=== PATIENT | male | born 1960 | race Caucasian/White ===

== ENCOUNTER → 2018-05-19 15:40 | Outpatient (CLI) | payer BC, SELFPAY ==
--- NOTE | 2018-05-19 15:40 | RAD_ITS ---
STUDY: X-RAY - RIGHT SHOULDER REASON FOR EXAM: Male, 57 years old. Pain. TECHNIQUE: 4 view(s) of the shoulder. COMPARISON: None. FINDINGS: Normal glenohumeral articulation. There is degenerative arthrosis of the acromioclavicular joint without inferior osseous spur formation. Normal acromion. Normal humeral head and visualized proximal humerus. The soft tissue structures are unremarkable. There is no demonstrated osseous destructive lesion or acute fracture. Normal visualized pulmonary apex. RAD/Shoulder min 2 Views IMPRESSION: Mild to moderate degenerative arthrosis of the right acromioclavicular joint. Electronically Signed: Leonidas Pappas MD at 15:23 EDT , Service support ,
--- NOTE | 2018-05-19 15:40 | RAD_ITS ---
STUDY: X-RAY - CERVICAL SPINE REASON FOR EXAM: Male, 57 years old. Cervicalgia. TECHNIQUE: 2 view(s) of the cervical spine were obtained. COMPARISON: 5 images of the cervical spine August 11, 2013. FINDINGS: There are stable degenerative changes of the anterior atlantoaxial articulation. Normal odontoid process. The patient has undergone anterior fusion C4-C5 with metal hardware. There is an anterior metal plate secured with metal screws in each vertebral level. Radiodense material in the anterior C4-5 disc space may be component of a disc prosthesis. The metal hardware seen previously fusing the C5-6 vertebra has been removed. There is straightening of the normal cervical lordosis. There is stable multi-level endplate spondylosis, most particularly involving the lower cervical spine, with some degree of osseous fusion is suggested across the C5-6 disc space. There or worsened multilevel degenerative changes of the cervical facet articulations, perhaps most severe at C4-5. There is minor anterolisthesis of C6 on C7. The prevertebral soft tissue structures are unremarkable. Surgical clips suggesting prior carotid artery surgery are now present in the soft tissues of the right neck. There is no demonstrated osseous destructive process or acute fracture of the cervical spine. RAD/Cerv Spine 4 or 5 Views IMPRESSION: 1. Multilevel degenerative changes of the cervical spine, progressed since previous exam. 2. Since the 2013 study, the patient has undergone removal of the anterior fixation hardware at C5-6 and placement of anterior fixation hardware at C4-5. 3. Surgical clips are also now seen on the right soft tissues of the neck. Electronically Signed: Leonidas Pappas MD at 15:46 EDT , Service support ,
--- NOTE | 2018-05-19 15:40 | RAD_ITS ---
STUDY: X-RAY - LEFT SHOULDER REASON FOR EXAM: Male, 57 years old. Pain. TECHNIQUE: 4 view(s) of the shoulder. COMPARISON: None. FINDINGS: Normal glenohumeral articulation. Normal acromioclavicular joint. Normal acromion. There is early inferior spurring of the glenoid of the scapula, extending posteriorly. Normal humeral head and visualized proximal humerus. The soft tissue structures are unremarkable. There is no demonstrated osseous destructive lesion or fracture. Normal visualized pulmonary apex. RAD/Shoulder min 2 Views IMPRESSION: Minor degenerative change of the left shoulder, as noted. No acute osseous abnormality. Electronically Signed: Leonidas Pappas MD at 15:22 EDT , Service support ,
== END ==
PROVIDERS: Family Provider Family Medicine; PCP Family Medicine; Referring Provider Orthopaedic Surgery; Visit Provider Orthopaedic Surgery
DX: M54.2 Cervicalgia (principal); M25.511 Pain in right shoulder; M25.512 Pain in left shoulder
CPT/HCPCS: 72050; 73030

== ENCOUNTER → 2019-02-16 15:32 | Outpatient (CLI) | payer BC, SELFPAY ==
[2018-05-19 15:44] VITALS: BMI 28.8
--- NOTE | 2019-02-16 15:34 | RAD_ITS ---
STUDY: X-RAY - LEFT KNEE REASON FOR EXAM: Male, 58 years old. Chronic pain. TECHNIQUE: 4 view(s) of the knee. COMPARISON: None. FINDINGS: There is demineralization of the visualized distal femur. There is demineralization of the tibia and fibula. Normal proximal tibiofibular articulation. There is no demonstrated fracture. There is mild degenerative arthrosis of the medial femorotibial compartment. Normal lateral femorotibial compartment. There is mild degenerative arthrosis of the patellofemoral articulation. There is mild joint effusion. There are mild atherosclerotic calcifications. RAD/Knee 4 or More Views IMPRESSION: Diffuse osteopenia along with mild degenerative disease. Electronically Signed: Lisset Fox MD at 21:27 EST , Service support ,
== END ==
PROVIDERS: Family Provider Family Medicine; PCP Family Medicine; Referring Provider Orthopaedic Surgery; Visit Provider Orthopaedic Surgery
DX: M25.562 Pain in left knee (principal)
CPT/HCPCS: 73564

== ENCOUNTER → 2019-12-30 | Outpatient (CLI) | payer BC, SELFPAY ==
[2019-12-11 07:48] VITALS: BMI 28.8
[2019-12-30 17:56] LABS: Amphetamine Urine VISTA NEGATIVE (<1000 ng/mL); Barbiturate Urine VISTA NEGATIVE (< 200 ng/mL); Benzodiazepine Urine VISTA NEGATIVE (< 200 ng/mL); Cocaine Urine VISTA NEGATIVE (< 300 ng/mL); Ecstacy Urine VISTA NEGATIVE (< 500 ng/mL); Methadone Urine VISTA NEGATIVE (< 300 ng/mL); PCP Urine VISTA NEGATIVE (< 25 ng/mL); THC Urine VISTA NEGATIVE (< 50 ng/mL); Vista UDS pH Range 6
== END | disposition home or self-care (01) ==
LOC: LAB 17:03
PROVIDERS: PCP Family Medicine; Referring Provider Anesthesiology Pain Medicine; Visit Provider Anesthesiology Pain Medicine
DX: F11.20 Opioid dependence, uncomplicated (principal)
CPT/HCPCS: 80307

== ENCOUNTER → 2020-08-09 17:32 | Outpatient (CLI) | payer OTHER, SELFPAY ==
[2019-12-11 07:48] VITALS: BMI 28.8
[2020-08-09 18:03] LABS: Amphetamine Urine VISTA NEGATIVE (<1000 ng/mL); Barbiturate Urine VISTA NEGATIVE (< 200 ng/mL); Benzodiazepine Urine VISTA NEGATIVE (< 200 ng/mL); Cocaine Urine VISTA NEGATIVE (< 300 ng/mL); Ecstacy Urine VISTA NEGATIVE (< 500 ng/mL); Methadone Urine VISTA NEGATIVE (< 300 ng/mL); PCP Urine VISTA NEGATIVE (< 25 ng/mL); THC Urine VISTA NEGATIVE (< 50 ng/mL); Vista UDS pH Range 6
== END ==
PROVIDERS: PCP Family Medicine; Referring Provider Anesthesiology Pain Medicine; Visit Provider Anesthesiology Pain Medicine
DX: F11.20 Opioid dependence, uncomplicated (principal)
CPT/HCPCS: 80307

== ENCOUNTER 2021-03-16 15:52 | Outpatient (CLI) | payer OTHER, SELFPAY ==
--- NOTE | 2021-03-16 16:10 | CT_ITS ---
STUDY: CT LEFT LOWER EXTREMITY WITHOUT CONTRAST REASON FOR EXAM: Left knee osteoarthritis, surgical planning. TECHNIQUE: Transaxial CT imaging of the lower extremity was performed. Coronal and sagittal images were reformatted. Individualized dose optimization techniques were used for this CT. COMPARISON: Radiographs 09/19/2020. FINDINGS: Knee: There is subchondral eburnation and severe joint space narrowing of the medial femorotibial compartment (coronal reconstruction 28). There are very small marginal osteophytes with preservation of joint space of the lateral femorotibial compartment. There are marginal osteophytes and joint space narrowing of the patellofemoral compartment (axial image 308). Normal proximal tibiofibular articulation. There is a joint effusion. The quadriceps tendon is grossly normal. The patellar tendon is grossly normal. Normal Hoffa''s fat pad. There is a popliteal cyst (sagittal reconstruction 18). There is an intra-articular body at the posterior aspect of the medial femorotibial compartment (sagittal reconstruction 25). There is chondrocalcinosis. There is vascular calcification. Hip: There is mild joint space narrowing of the superior medial left hip joint (coronal reconstruction 70). There is a herniation pit in the lateral aspect of the femoral head (coronal reconstruction 64). There is chondrocalcinosis. Ankle: There is chondrocalcinosis of the posterior aspect of the tibiotalar articulation. Normal posterior subtalar, talonavicular and calcaneocuboid articulations. There is a small plantar calcaneal enthesophyte. There is mild fusiform thickening of the Achilles tendon consistent with tendinosis (sagittal reconstruction 16). There are prominent venous varicosities at the medial aspect of the ankle/lower leg. CT/Extremity Lower without Contra IMPRESSION: Left knee osteoarthritis. Electronically Signed: Iron Arteaga MD at 14:59 EST Tel , Service support ,
== END 2021-03-16 23:59 | disposition short-term general hospital (02) ==
LOC: CT 15:54
PROVIDERS: PCP Family Medicine; Referring Provider Orthopaedic Surgery; Visit Provider Orthopaedic Surgery
DX: M17.12 Unilateral primary osteoarthritis, left knee (principal)
CPT/HCPCS: 73700

== ENCOUNTER 2021-03-21 05:34 | Day surgery (SDC) | payer OTHER, SELFPAY ==
--- NOTE | 2021-03-13 08:58 | EKG12_ITS ---
Test Reason : PREOP Blood Pressure : / mmHG Vent. Rate : 078 BPM Atrial Rate : 078 BPM P-R Int : 140 ms QRS Dur : 080 ms QT Int : 346 ms P-R-T Axes : 012 048 077 degrees QTc Int : 394 ms Normal sinus rhythm Normal ECG Confirmed by REYNA ROMAN, WILLIAM ([id number]), state editor QIANA NORMAN ([id number]) on 03/13/2021 2:17:34 PM Referred By: Anurag Jones Confirmed By:WILLIAM ORELLANA MD
[2021-03-13 10:50] LABS: Absolute Lymphocyte Count 1.02 X10^3/uL (0.83-4.51); Absolute Neutrophil Count 2.8 X10^3/uL (2.0-7.7); Basophil# 0.03 X10^3/uL; Basophil% 0.6 % (0-1); Eosinophil# 0.31 X10^3/uL; Eosinophils% 6.4 % (0-5); Hematocrit 44.7 % (40-54); Hemoglobin 14.8 g/dL (13.0-16.5); Lymphocyte # 1.02 X10^3/ul (0.83-4.51); Mean Corp Hgb Conc 33.1 g/dL (32-36); Mean Corpuscular Hgb 29.1 pg (27.0-32.0); Mean Corpuscular Volume 87.8 fL (80-94); Monocyte# 0.63 X10^3/uL; NRBC Flagged by Analyzer 0 % (0-5); Neutrophil # 2.84 X10^3/uL (2.7-7.7); Neutrophil % 58.6 % (47-70); Platelet Count 221 K/mm3 (150-450); RBC Distribution Width CV 13.7 % (11.6-14.6); RBC Distribution Width SD 43.8 fl (35.1-43.9); Red Blood Count 5.09 M/mm3 (4.6-6.2); White Blood Count 4.9 K/mm3 (4.4-11.0)
[2021-03-13 11:12] LABS: Partial Thromboplast Time 33.1 Seconds (24.1-36.2); Prothrombin Time (Protime)PT. 12.8 SECONDS (11.7-14.9)
[2021-03-13 11:18] LABS: Anion Gap 7 (5-15); BUN 20 mg/dL (7-18); BUN/Creat Ratio 19.6 RATIO (10-20); Calcium,Total 9.9 mg/dL (8.5-10.1); Chloride 102 mmol/L (98-107); Creatinine, Serum 1.02 mg/dL (0.70-1.30); EST Glomerular Filtration Rate 79 mL/min (>60); Est Glom Filt Rate - Afr Amer 95 mL/min (>60); Glucose 98 mg/dL (74-106); Potassium 4.9 mmol/L (3.5-5.1); Sodium Level 132 mmol/L (136-145)
[2021-03-13 11:22] LABS: Magnesium 1.6 mg/dL (1.6-2.6)
[2021-03-14 17:57] LABS: Fructosamine 227 umol/L (0-285)
[2021-03-21] VITALS (10 sets, daily range): BP systolic 117–172; BP diastolic 82–101; PULSE 63–82; RESP 16–20; TEMP 36.1–37.1; O2SAT 94–100; BMI 31.1
[2021-03-21] MEDS: Lactated Ringers 1,000 ML 100 ML IV ×2 (06:40→08:30)
[2021-03-21] MEDS: Scopolamine 1mg/72hr Patch 1 PATCH TD (06:43)
[2021-03-21] MEDS: Celecoxib 200 MG Capsule 400 MG PO (06:43)
[2021-03-21] MEDS: Acetaminophen 500 MG Tablet 1000 MG PO ×2 (06:44→13:45)
[2021-03-21] MEDS: Gabapentin 600 MG Tablet PO (06:44)
--- NOTE | 2021-03-21 07:16 | HP.PCM_ITS ---
History and Physical Date of Admission: 03/21/21 [id number]:[id number]: TOYA SOUSA CRep #:[id number]:[id number] Provider:Dr. Anurag Jones DOAge/Sex: 60/M [facility] [place]Signed Intake Vital Signs 11/29/20 08:52 Height 5 ft 8 in Intake Visit Reasons: L knee inj and aspiration Chief Complaint: Dr. Castro referral left knee pain Allergies diphenhydramine [From Benadryl] Allergy (Verified 09/19/20 15:28) hyper Medications atorvastatin 40 mg tablet 40 mg PO DAILY 05/19/18 [History Confirmed 12/07/20] coenzyme Q10 75 mg capsule 75 mg PO DAILY 05/19/18 [History Confirmed 12/07/20] lisinopril 40 mg tablet 40 mg PO DAILY 05/19/18 [History Confirmed 12/07/20] metoprolol tartrate 50 mg tablet 50 mg PO BID 05/19/18 [History Confirmed 12/07/20] omeprazole 40 mg capsule,delayed release 40 mg PO DAILY 05/19/18 [History Confirmed 12/07/20] PFSH Medical History (Updated 09/19/20 @ 16:[address] Anurag Jones DO) Esophageal cancer High cholesterol Hypertension Surgical History (Updated 09/19/20 @ 16:[address] Anurag Jones DO) H/O cervical spine surgery History of carpal tunnel release of both wrists Family History (Updated 05/19/18 @ 15:44 by Lore Lewis) Father Cancer Other Hypertension Social History (Updated 04/04/20 @ 15:[address] Anurag Jones DO) Smoking Status: Former smoker HPI L knee inj and aspiration Details: Parts of this documentation were recorded by a scribe, this documentation accurately reflects the service provided and the decisions made by me, Dr. Anurag Jones DO 12/07/20 1732. TOYA SOUSA is a 60 year old M here today for left knee pain and swelling. he last had a left knee injection and aspiration 11 weeks and 2 days ago. He states that the last injection was effective for about 4-6 weeks then the pain would come and go. He is wishing to have a left TKA in March and he would like this last injection prior to the TKA. Denies any new injuries. ROS [facility] Reports arthralgias, Reports joint swelling, Denies numbness and Denies tingling Skin/Breast Reports system reviewed and no additional complaints, except as documented Neuro Yes system reviewed and no additional complaints, except as documented, No numbness and No tingling Ortho Exam General General: Yes no acute distress Neurologic: Yes alert and Yes oriented x3 Psychologic: Yes reasonable and appropriate Right Knee Patella Translation: 1 Left Knee Skin/Wound: No ecchymosis, No erythema and Yes swelling Homans Sign: No 1+: Effusion Knee ROM: No ROM-Extension -20 to 0 and No ROM-Flexion 0-140 Examination: Yes med jt line tenderness and Yes Lat jt line tenderness Stability: NML: Anterior Drawer and NML: Posterior Drawer Patella Translation: 1 Patella Grind: Yes KNEE: grade 2 joint effusion. Office Procedures Office Injections/Aspirations Procedure Detail Procedure performed by: Anurag Jones Injection Site: Yes Medication Given: Yes Ortho Injections/Aspirations Yes Knee Left Details: Obtained consent for aspiration. Under sterile conditions, aspirated 40cc from the patients []. The patient tolerated the aspiration well without any noted complications. Patient should call our office if redness develops, pain worsens or if they have any concerns. Ortho Injections Injections Yes Knee Left Details: Obtained consent for injection. Under sterile conditions, injected the patient's left knee with 2cc bupivacaine, 2cc lidocaine and 1cc depomedrol. The patient tolerated the injection well without any noted complication. Patient should call our office if redness develops, pain worsens or if they have any concerns. Office Meds Depo-Medrol Performing Provider: Anurag Jones DO Administered by: Anurag Jones DO on 12/07/20 16:06 Dose Route Admin Location Lot Number Expiration Date [facility] [employer] 40 mg intra-articular left knee [id number] 08/09/21 7858-7138-97 [employer] Supplemental Info 09/19/2020 x-ray left knee: Moderate to severe medial joint space narrowing. moderate pf arthrosis 09/19/2020 x-ray right knee s/p unicompartmental knee arthroplasty mild spurring lateral compartment severe PF arthrosis. , 02/16/2019 x-ray left knee moderate medial joint space narrowing and degenerative change seen patellofemoral joint Coding Level of Care Code Off vis,est,level 3 Diagnoses Osteoarthritis of left knee M17.12 CPT Codes product scientist.knee () product scientist.knee () Assessment and Plan Assessment and Plan (1) Osteoarthritis of left knee: Status: Acute Orders: Orders: Ortho Injections Today Ortho Aspiration Today Plan - Dr. Anurag Jones, DO: Patient educated that he does OA of the left knee. Educated that he can have a repeat aspiration and steroid injection if he wishes. He wishes to proceed with aspiration and injection of the left knee at this time. He is scheduled for a left TKA on 03/21/21. Educated that this will be his last steroid injection prior to surgery unless he wishes to push his surgery out. Our office will call the patient closer to his surgery with additional information. Follow up within 30 days of surgery or sooner if pain, swelling, numbness or associated symptoms, or concerns develop. All questions answered. Patient in agreement of plan. 12/07/20 1611<Electronically signed by Anurag Jones DO>Date Anurag Jones DO I have re-examined the patient. There are no clinical changes since date of exam
--- NOTE | 2021-03-21 07:45 | KNEE_PTH ---
PATIENT: TOYA SOUSA LOC: [facility] [place] U#:[id number] AGE/SX: 60/M ROOM: RE03/21/[address]: Dr. Anurag Jones DO : 1960 BED: DIS: 03/21/2021 SPEC #: [id number] RECD: 03/21/21 12:48 STATUS: FLAVIO MUNA #: [id number] MIMI: 03/21/21 07:[address]: Anurag Jones DEPT: SURGICAL PATHOLOGY RECD BY: Brenna Lofton ENTERED: 03/21/21 13:04 SP TYPE: TOTAL KNEE OTHR DR: Dr. Sourav Castro MD Tissues: Knee, NOS Procedures: Decalcification bone/plaque Surgery Specimen Level IV HEADER OPERATION: ERAS, total knee replacement robotic arm assist PRE-OP DIAGNOSIS: Acute osteoarthritis of left knee TISSUE SUBMITTED: Bone and soft tissue of left knee MICROSCOPIC DIAGNOSIS Bone and soft tissue, left knee, total knee replacement/resection: Pieces of bone with degenerative osteoarthritic changes. WILLY:kamaljit 03/24/2021 MICROSCOPIC DESCRIPTION Slides are reviewed. GROSS DESCRIPTION Received is one container designated bone and soft tissue left knee. The specimen consists of multiple fragments of noonan-yellow bone measuring in aggregate 10 x 10 x 3 cm. No soft tissue is identified. A number of bony fragments contain articular surfaces consistent with tibial plateau and femoral condyle and displaying prominent osteophyte formation, eburnation, and bone erosion. Tour Consultant sections are submitted in one cassette after decalcification. / WILLY:kamaljit 03/21/2021 TC:5 CPT: 26418, 35337
[2021-03-21] MEDS: dexAMETHasone 10 MG/ML Vial IV (08:10)
[2021-03-21] MEDS: Bupivacaine Mpf 0.5% 30 ML VIAL (09:25)
[2021-03-21] MEDS: Epinephrine (1 mg/ml) 1 MG/ML VIAL (09:25)
[2021-03-21] MEDS: Betamethasone/Betamethasone 30 MG/5 ML Vial (09:25)
--- NOTE | 2021-03-21 09:59 | PCM.OPRPT ---
Report of Operation Date of Procedure: 03/21/21 Description of Surgical Findings:: Preoperative diagnosis: Left knee DJD Postoperative diagnosis: Same Procedure: Left total knee arthroplasty CT guided Robotic Assisted Implant: Kim triathlon press fit, femoral component size 4, tibial baseplate size 5, asymmetric patella size 32, polyethylene X3 size 9 CS Anesthesia: General with adductor canal block Tourniquet time: 17 minutes at 300 mmHg Complications: None Condition: Stable to PACU Estimated blood loss: 125 cc Indication for procedure: This is a 60-year-old male with long standing degenerative joint disease of the knee who has failed conservative treatment and wished to proceed with elective total knee arthroplasty. Risk benefits and alternatives were reviewed including; risk of bleeding, infection, nerve artery and tissue damage, continued pain, postoperative stiffness, venous thromboembolism, need for postoperative rehabilitation, mechanical feel to the knee, and expected postoperative course. The pre- operative CT and templating was performed with component sizing. Procedure: The patient was met in the preoperative holding area. The operative extremity was identified by both patient and physician and was marked. Patient was met by anesthesia. An adductor canal block was placed by anesthesia postoperatively the patient was brought back to the operating room on a wheeled cart and transferred to the operating table in the supine position. Anesthesia was started. A well-padded tourniquet was placed on the operative extremity. The patient was prepped and draped in the usual sterile fashion. A timeout was called to ensure the proper patient procedure and extremity were being contemplated. An esmarch was used to exsanguinate the extremity. The tourniquet was inflated. A 10 blade scalpel was used to make a midline incision down through the skin and subcutaneous tissue. Skin retractors placed. Bovie and Aquamantis were used to perform meticulous hemostasis. full-thickness flaps were elevated medial and lateral along the joint capsule. A deep blade scalpel was used to perform a medial parapatellar arthrotomy. The knee was brought to full extension. A bovie was used to release the soft tissues off the most proximal aspect of the medial tibial plateau, a three-quarter inch curved osteotome was also used in this process. The infrapatellar fat pad was excised. The suprapatellar fat pad was excised partially anteriorolateraly and portion the anterioromedial pad was elevated from the femur. At this point our intra-articular femoral array was placed at a 45 degree angle proximal and posterior to the medial epicondyle. femoral checkpoint was placed at this time. Our tibial array was placed greater than 1 hands breath below the incision at a 20 degree angle stab incisions were made with a 15 blade scalpel and pins were placed and attached to the tibial array , tibial checkpoint was placed in the proximal tibial metaphysis. Tourniquet was let down. At this point registration sierra were taken throughout the knee . Once the knee was registered we then tensioned the medial and lateral ligaments in extension and 90 degrees of flexion. We then used these numbers to adjust our components within parameters to balance the knee in both flexion and extension once this was done on our monitor we then proceeded with using the robotic arm to make our tibial plateau cut, anterior and posterior chamfer and distal femur cuts. we removed the cut fragments with the use of a bovie and morris, we did use a lamina environmental professional to insure we visualized and removed all posterior osteophytes and at this time also used the Aquamantis on the posterior joint capsule. we then trialed and achieved the desired plan with a well-balanced knee. we used the green prob to moises the corresponding tibial rotation based on our CT template. Lug holes were drilled in the femur the tibia preparation was completed with the appropriate sized base plate pinned based on previous rotation moises. An appropriate sized fin punch was used on the tibia and 4 corner drill was used for the press fit component and the patella was prepared by first using a caliper to ensure sufficient bone stock and a patellar reamer to remove the desired amount of bone. lug holes drilled for an asymmetric poly. We then brought the knee through range of motion with excellent patellar tracking. We thoroughly irrigated the knee. Trial components were removed a posterior capsular injection was preformed with our standard cocktail. In addition the aqua Mantis was also used to aid in hemostasis. Betadine rinse was allowed to sit and washed out completely. Components were press-fit into place. Aricept rinse was then used followed by several more liters of irrigation after it was allowed to sit. The joint capsule was closed with #1 Ethibond [id number] followed by Vicryl in the subcutaneous tissues with ricarda in the skin. Arrays and checkpoints were removed prior to closure all counts were correct stab incisions were closed with a staple standard dressing in the form of Mepilex AG for the main incision and a small Mepilex over the pin holes. Thigh-high LAVERNE hose applied over top of dressing. Patient tolerated the procedure well and was directed to PACU in stable condition . There were no intraoperative complications.
--- NOTE | 2021-03-21 10:03 | OP.PCM_ITS ---
Report of Operation Surgery/Procedure Performed:: Preoperative diagnosis: [Left] knee DJD Postoperative diagnosis: [Same] Procedure: [Left] total knee arthroplasty CT guided Robotic Assisted Implant: [place] triathlon [press fit], femoral component size[ 4], tibial baseplate size [4], [asymmetric] patella size [32], polyethylene X3 size [9] [CS] Anesthesia: [spinal] with adductor canal block Tourniquet time: [12] [minutes at 300 mmHg] Complications: None Condition: Stable to PACU Estimated blood loss: [200] cc Indication for procedure: This is a [70-year-old female] with long standing degenerative joint disease of the knee who has failed conservative treatment and wished to proceed with elective total knee arthroplasty. Risk benefits and alternatives were reviewed including; risk of bleeding, infection, nerve artery and tissue damage, continued pain, postoperative stiffness, venous thromboembolism, need for postoperative rehabilitation, mechanical feel to the knee, and expected postoperative course. The pre- operative CT and templating was performed with component sizing. Procedure: The patient was met in the preoperative holding area. The operative extremity was identified by both patient and physician and was marked. Patient was met by anesthesia. An adductor canal block was placed by anesthesia [postoperatively] the patient was brought back to the operating room on a wheeled cart and transferred to the operating table in the supine position. Anesthesia was started. A well-padded tourniquet was placed on the operative extremity. The patient was prepped and draped in the usual sterile fashion. A timeout was called to ensure the proper patient procedure and extremity were being contemplated. An esmarch was used to exsanguinate the extremity. The tourniquet was inflated. A 10 blade scalpel was used to make a midline incision down through the skin and subcutaneous tissue. Skin retractors placed. Bovie and Aquamantis were used to perform meticulous hemostasis. full-thickness flaps were elevated medial and lateral along the joint capsule. A deep blade scalpel was used to perform a medial parapatellar arthrotomy. The knee was brought to full extension. A bovie was used to release the soft tissues off the most proximal aspect of the medial tibial plateau, a three-quarter inch curved osteotome was also used in this process. The infrapatellar fat pad was excised. [The suprapatellar fat pad was excised partially anteriorolateraly and portion the anterioromedial pad was elevated from the femur]. At this point our intra- articular femoral array was placed at a 45 degree angle proximal and posterior to the medial epicondyle. femoral checkpoint was placed at this time. Our tibial array was placed greater than 1 hands breath below the incision at a 20 degree angle stab incisions were made with a 15 blade scalpel and pins were placed and attached to the tibial array , tibial checkpoint was placed in the proximal tibial metaphysis. Tourniquet was let down. At this point registration sierra were taken throughout the knee . Once the knee was registered we then tensioned the medial and lateral ligaments in extension and 90 degrees of flexion. We then used these numbers to adjust our components within parameters to balance the knee in both flexion and extension once this was done on our monitor we then proceeded with using the robotic arm to make our tibial plateau cut, anterior and posterior chamfer and distal femur cuts. we removed the cut fragments with the use of a bovie and Taylor, we did use a lamina bilingual inside sales representative to insure we visualized and removed all posterior osteophytes and at this time also used the Aquamantis on the posterior joint capsule. we then trialed and achieved the desired plan with a well-balanced knee. we used the green prob to moises the corresponding tibial rotation based on our CT template. Lug holes were drilled in the femur the tibia preparation was completed with the appropriate sized base plate pinned based on previous rotation moises. An approprate sized fin punch was used on the tibia [and 4 corner drill was used for the press fit component] and the patella was prepared by first using a caliper to ensure sufficient bone stock and a patellar reamer to remove the desired amount of bone. lug holes drilled for an [asymmetric poly]. We then brought the knee through range of motion with excellent patellar tracking. We thoroughly irrigated the knee. Trial components were removed a posterior capsular injection was perfomed with our standard cocktail. In addition the aqua Mantis was also used to aid in hemostasis. Betadine rinse was allowed to sit and washed out completely. Components were [press-fit into place]. Aricept rinse was then used followed by several moree liters of irrigation after it was allowed to sit. The joint capsule was closed with #1 Ethibond [id number] followed by Vicryl in the subcutaneous tissues [with ricarda in the skin]. Arrays and checkpoints were removed prior to closure all counts were correct stab incisions were closed with a staple standard dressing in the form of Mepilex AG for the main incision and a small meplix over the pin holes. Thigh-high LAVERNE hose applied over top of dressing. Patient tolerated the procedure well and was directed to PACU in stable condition . [there were no intraoperative complications].
[2021-03-21 10:05] LABS: Bedside Glucose 91 mg/dL (70-110)
--- NOTE | 2021-03-21 10:07 | EX.PCM.DISCH ---
Discharge Instructions Diet Discharge Diet: No restrictions Activity Weight Bearing Status: Weight bearing as tolerated Keep extremity elevated above heart level: Operative Extremity Dressing / Incision Additional Dressing/Incision Instructions:: Ice and elevate one week while not ambulating. Ambulation is encouraged. Weightbearing as tolerated. Use assistive devise for stability. Encourage FULL knee extension and flexion 1 time EVERY time you get up and down and MULTIPLE times per day. No showering 72 hours after surgery. Begin showering postop day #3. Remove the dressing prior to shower and gently wash with warm water and antibacterial soap then pat dry and place abdominal pad (or plain gauze) and LAVERNE hose over top. This is to be done daily. Do not submerge for 3 weeks. If not showering daily after the initial 72 hours then you must clean incision and change dressing daily. Do not allow animals near the incision area. Keep clean. Follow anticoagulation recommendations as prescribed. Do not take any NSAIDs while on blood thinner. Do not take any additional narcotic pain medication other than what was prescribed on your surgery day without discussing with physician. Narcotic medication can be addictive. Do not drink alcohol while taking narcotics. Start physical therapy. If you are not currently scheduled for physical therapy or you are unsure of appointment time please call office [facility] to arrange. Call Dr. Jones with any concerns. Follow Up Care Please Follow Up With: Anurag Jones DO When: 2 weeks Test Results: Test results from this visit will be discussed in further detail at your follow-up appointment, if applicable. Discharge Plan Admission Attending Provider: Anurag Jones Primary Care Provider: Sourav Castro Discharge Orders/Prescriptions Prescriptions: New acetaminophen [acetaminophen] 500 MG tablet 1,000 mg PO Q6H PRN Qty: 100 RF: 0 cephalexin [cephalexin] 500 MG capsule 1,000 mg PO Q8 Qty: 4 RF: 0 Eliquis 2.5 mg tablet 2.5 mg PO BID Qty: 28 RF: 0 oxycodone 5 mg tablet 5 mg PO Q4H PRN (Reason: pain) 7 Days Qty: 60 RF: 0 Continued lisinopril 40 mg tablet 40 mg PO DAILY RF: 0 atorvastatin [Lipitor] 40 mg tablet 40 mg PO DAILY RF: 0 metoprolol tartrate 50 mg tablet 50 mg PO DAILY RF: 0 Ultra CoQ10 75 mg capsule 200 mg PO BID RF: 0 omeprazole 40 mg capsule,delayed release(DR/EC) 20 mg PO DAILY RF: 0 cyclobenzaprine 10 mg tablet 10 mg PO BID RF: 0 sennosides-docusate sodium [Vegetable Lax-Stool Softener] 8.6-50 mg Tablet 4 tab-cap PO QHS RF: 0 testosterone cypionate 200 mg/mL oil 100 mg subcut .QOWEEK RF: 0 budesonide-formoterol [Symbicort] 160-4.5 mcg/actuation HFA aerosol inhaler 2 puff INHALATION PRN PRN (Reason: ASTHMA) RF: 0 Held aspirin 81 mg Capsule 81 mg PO DAILY RF: 0 Hold Instructions: Resume on 03/22/21. Discontinued naproxen 250 mg Tablet 220 mg PO BID RF: 0 Referrals / Follow Up: Sourav Castro MD [Primary Care Provider] - Disposition Disposition (needs filled in before D/C Order can be placed): Home, Self Care
--- NOTE | 2021-03-21 10:25 | RAD_ITS ---
STUDY: X-RAY - LEFT KNEE REASON FOR EXAM: Postoperative evaluation of left total knee arthroplasty. TECHNIQUE: 2 view(s) of the knee. COMPARISON: Radiographs 09/19/2020. FINDINGS: There is a left total knee arthroplasty without evidence of complication. There is postoperative gas in the soft tissues and overlying skin ricarda. There is vascular calcification. RAD/Knee 1 or 2 Views IMPRESSION: Uncomplicated left total knee arthroplasty. Electronically Signed: Iron Arteaga MD at 12:18 EST Tel , Service support ,
[2021-03-21] MEDS: Cefazolin 1 GM/50 ML BAG IV (11:28)
[2021-03-21] MEDS: oxyCODONE 5 MG Tablet PO (12:10)
== END 2021-03-21 23:59 | disposition home or self-care (01) ==
LOC: SDC 05:35 → AC 05:36
PROVIDERS: Anesthesiology; PCP Family Medicine; Referring Provider Orthopaedic Surgery; Visit Provider Orthopaedic Surgery
PROC: 0SRD0JZ Replacement of Left Knee Joint with Synthetic Substitute, Open Approach (ICD-10-PCS; CPT 27447; principal; 2021-03-21 07:15)
DX: M17.12 Unilateral primary osteoarthritis, left knee (principal); J44.9 Chronic obstructive pulmonary disease, unspecified; E78.00 Pure hypercholesterolemia, unspecified; I10 Essential (primary) hypertension; K21.9 Gastro-esophageal reflux disease without esophagitis; G89.18 Other acute postprocedural pain; G62.9 Polyneuropathy, unspecified; Z79.01 Long term (current) use of anticoagulants; Z79.82 Long term (current) use of aspirin; Z79.899 Other long term (current) drug therapy; Z87.891 Personal history of nicotine dependence
CPT/HCPCS: 27447; 64447; S2900; 01402; 36415; 73560; 73562; 80048; 82962; 82985; 83735; 85025; 85610; 85730; 86850; 86900; 86901; 87081; 88305; 88311; 93005; 93971; 97162; 99282; C1776; J7120; J0702; J2405

== ENCOUNTER 2021-03-21 19:33 | Emergency (ER) | payer OTHER, SELFPAY ==
[2021-03-21 19:33] VITALS: PULSE 99; RESP 18; TEMP 35.9; O2SAT 92; BMI 31.3
[2021-03-21 19:36] VITALS: BP 146/70
--- NOTE | 2021-03-21 21:06 | RAD_ITS ---
STUDY: X-RAY - LEFT KNEE REASON FOR EXAM: Male, 60 years old. pain PT HAD TOTAL KNEE REPLACEMENT WITH DR GILLIS THIS AM SWELLING TO LEFT KNEE AND LEFT FOOT N/T TO LEFT FOOT TECHNIQUE: 3 view(s) of the knee. COMPARISON: Left knee x-ray dated September 19, 2020 FINDINGS: Newly placed tricompartmental hardware is present demonstrating good bony contact and alignment. The tibial stem is noncemented. Tract sierra are seen in the undersurface of the patella due to placement of a radiolucent prosthetic component. There are expected postoperative changes in the soft tissues and joint including gas, fluid, and swelling. Multiple overlying skin ricarda are present. No occult fracture is present. RAD/Knee 3 Views IMPRESSION: Status post left knee arthroplasty Electronically Signed: Dk Barahona MD at 22:53 EST , Service support ,
--- NOTE | 2021-03-21 21:08 | US_ITS ---
STUDY: VENOUS DOPPLER ULTRASOUND - LEFT LOWER EXTREMITY REASON FOR EXAM: Male, 60 years old. LT LOWER LEG SWELLING left knee replacement TECHNIQUE: Ultrasound evaluation of the deep vein system to include reeder-scale imaging and compression was performed. Reeder-scale imaging and Doppler sonographic evaluation, including duplex spectral analysis and qualitative color flow sonography, was performed. COMPARISON: None. FINDINGS: Common Femoral Vein: Normal compression, spontaneity and augmentation. Normal color Doppler. Common Femoral Vein/Greater Saphenous Junction: Normal compression, spontaneity and augmentation. Normal color Doppler. Deep Femoral Vein: Normal compression, spontaneity and augmentation. Normal color Doppler. Femoral Proximal: Normal compression, spontaneity and augmentation. Normal color Doppler. Femoral Middle: Normal compression, spontaneity and augmentation. Normal color Doppler. Femoral Distal: Normal compression, spontaneity and augmentation. Normal color Doppler. Popliteal Vein: Normal compression, spontaneity and augmentation. Normal color Doppler. Posterior Tibial Vein: Normal compression, spontaneity and augmentation. Normal color Doppler. Peroneal Vein: Normal compression, spontaneity and augmentation. Normal color Doppler. Small left knee Zavala''s cyst noted. Multiple varicose veins are seen around the ankle. The right common femoral vein was evaluated and is normal. US/Venous Duplex Imag/Limited/Uni IMPRESSION: 1. Normal venous Doppler ultrasound of the left lower extremity. Electronically Signed: Dk Barahona MD at 22:49 EST , Service support ,
--- NOTE | 2021-03-21 21:09 | EDS_ITS ---
HPI History of Present Illness Chief Complaint: Lower Extremity Injury Detail of Chief Complaint: Left knee pain and decreased ability to move left foot Informant: patient Narrative Narrative: Patient postop total knee replacement on the left this morning by . Patient did well and was moving everything and walking. He was discharged home and when he tried to get into the car he bent his knee and had sudden onset of severe pain. Patient then unable to move his foot and he describes loss of sensation to the foot. Patient's had some chronic loss of sensation from about left mid thigh to mid calf for the last several weeks. Patient was advised to come to the emergency department by his orthopedic surgeon. Patient denies chest pain or shortness of breath. [facility] Medical History (Updated 03/21/21 @ 22:[address] Marsha Dickens, ) Alcohol use Arthritis Asthma COPD (chronic obstructive pulmonary disease) CPAP (continuous positive airway pressure) dependence Esophageal cancer Former smoker Gastric reflux High cholesterol High cholesterol History of echocardiogram History of irregular heartbeat History of steroid therapy History of stress test Hx of esophageal varices Hypertension Injury of back Injury of head and neck Leg cramps Sleep apnea Wears glasses Wears partial dentures Home Medications atorvastatin 40 mg tablet 40 mg PO DAILY 05/19/18 [History Last Taken 03/20/21] coenzyme Q10 75 mg capsule 200 mg PO BID 05/19/18 [History Last Taken 03/20/21] lisinopril 40 mg tablet 40 mg PO DAILY 05/19/18 [History Last Taken 03/21/21 04:00] metoprolol tartrate 50 mg tablet 50 mg PO DAILY 05/19/18 [History Last Taken 03/21/21 04:00] omeprazole 40 mg capsule,delayed release 20 mg PO DAILY 05/19/18 [History Last Taken 03/21/21 04:00] aspirin 81 mg PO DAILY 03/07/21 [History Last Taken 03/15/21] budesonide-formoterol [Symbicort] 2 puff INHALATION PRN PRN 03/07/21 [History Last Taken 03/20/21] cyclobenzaprine 10 mg PO BID 03/07/21 [History Last Taken 03/20/21] sennosides-docusate sodium [Vegetable Lax-Stool Softener] 4 tab-cap PO QHS 03/07/21 [History Last Taken 03/20/21] testosterone cypionate 100 mg SUBCUT .QOWEEK 03/07/21 [History Last Taken 03/20/21] acetaminophen 1,000 mg PO Q6H PRN #100 tab 03/21/21 [Rx Last Taken Unknown] apixaban [Eliquis] 2.5 mg PO BID #28 tab 03/21/21 [Rx Last Taken Unknown] cephalexin 1,000 mg PO Q8 #4 cap 03/21/21 [Rx Last Taken Unknown] oxycodone 5 mg PO Q4H PRN 7 Days #60 tab 03/21/21 [Rx Last Taken Unknown] Allergy/AdvReac Type Severity Reaction Status Date / Time diphenhydramine Allergy hyper Verified 03/21/21 19:36 [From Lita] Family History (Updated 05/19/18 @ 15:44 by Lore Lewis) Father Cancer Other Hypertension Surgical History (Updated 03/07/21 @ 09:29 by Bernadine Velazquez) H/O cervical spine surgery History of carpal tunnel release of both wrists Hx of elbow surgery Hx of foot surgery Hx of right knee surgery Hx of shoulder surgery Hx of tooth extraction Social History (Updated 04/04/20 @ 15:[address] Anurag Jones, DO) Smoking Status: Former smoker ROS ROS ED Constitutional Constitutional ED: Reports systems reviewed and no addt'l complaints, except as documented; Denies body ache(s), change in weight or chills Eyes Eyes: Denies acute decrease in peripheral vision, change in vision, double vision or loss of vision ENT ENT ED: Reports none; Denies ear pain, lip swelling, loss taste/smell, neck pain, otalgia or sore throat Cardiovascular Cardiovascular: Reports none; Denies abdominal pain, chest pain with activity, leg edema, lightheadedness, palpitations, rapid heart rate or syncope Respiratory/Chest Respiratory/Chest: Reports none; Denies change in mental status, dry cough, dyspnea, hemoptysis, shortness of breath at rest or shortness of breath with exertion Gastrointestinal Gastrointestinal: Reports none; Denies abdominal pain, change in stool character, diarrhea, hematemesis, hematochezia, melena, rectal bleeding or vomiting Genitourinary Genitourinary ED: Reports none; Denies abdominal discomfort, anuria, dysuria, genital pain or polyuria Musculoskeletal Musculoskeletal: Reports none and other Details: Left knee pain and swelling. Left foot decreased movement and sensation ; Denies arthralgias, back pain, difficulty walking, extremity pain, muscle weakness or myalgias Integumentary Reports none; Denies abscess or rash Neurologic Neurologic: Reports none; Denies abnormal gait, confusion, focal weakness, frequent falls, headache(s), loss of vision, numbness, paresthesias, radicular pain, vertigo or weakness Psychiatric Psychiatric: Reports systems reviewed and no addt'l complaints, except as documented and none; Denies behavioral changes, confusion, difficulty concentrating, hallucinations, suicidal ideation, tactile hallucinations or visual hallucinations Endocrine Endocrinology: Denies none, cold intolerance, excessive sweating, fatigue or heat intolerance Hematologic/Lymphatic Hematologic/Lymphatic: Reports none; Denies anemia, easy bleeding or easy bruising Allergic/Immunologic Allergic/Immunologic ED: Denies as per HPI, none, lip swelling, mouth swelling, throat swelling, tongue swelling or hives EXAM Physical Exam Const Vital Signs: 03/21/21 19:33 03/21/21 19:36 03/21/21 22:06 Temperature 96.7 F L Temperature Source Temporal Pulse Rate 99 74 Respiratory Rate 18 17 Blood Pressure 146/70 H 118/65 Blood Pressure Mean 95 82 Pulse Ox 92 Oxygen Delivery Method Room Air Positive well nourished and well developed General Appearance ED: well developed and NAD HEENT Reports TM's clear and moist mucous membranes normocephalic and atraumatic; Negative for trauma or tenderness Tympanic Membrane ED: Yes TM's clear Eyes PERRL and EOMs intact bilaterally General Eye ED: Negative for pale conjunctiva or scleral icterus Neck no lymphadenopathy, supple and no JVD General: Negative for tenderness Chest Wall inspection of chest normal and palpation of chest normal Chest: Negative for tenderness Resp normal respiratory effort and clear to auscultation bilaterally Effort and Inspection: Negative for respiratory distress or pain with movement Auscultation: Negative for rhonchi, wheezes or diminished lung sounds Cardio regular rate, regular rhythm, S1 normal heart sound, S2 normal heart sound and no murmurs Peripheral Pulses: pulses 2+ throughout GI normal to inspection, nondistended, normoactive bowel sounds, soft to palpation, non-tender, non-distended and no masses Back/Spine no CVA tenderness and no thoracic nor lumbar tenderness Extremity Extremity Narrative: Evaluation of the left knee reveals that there is not significant swelling about the knee. Compartments are soft in the calf and thigh. Patient has decreased ability to dorsi flex the foot with decreased sensation diffusely about the foot. General Extremety ED: Negative for edema General Extremity: Negative for edema Neuro oriented x3, CN's II-XII intact bilaterally, no sensory deficits noted and gait normal Sensorium / Orientation: awake, alert, oriented to person, oriented to place and oriented to time Motor Exam: strength 5/5 throughout and strength abnormal Psych mental status grossly normal Skin no rashes or lesions noted and no wounds MDM MDM MDM Narrative Medical decision making narrative: Patient had a venous Doppler that was negative for DVT. Patient also had x-rays of the left knee which did not show any periprosthetic fractures on my interpretation however official report from radiology pending. I discussed case with patient's orthopedic surgeon who asked that I have patient follow-up with him as regularly scheduled. Patient states that his movement of his toes is improved compared to earlier. At this point etiology of his neuropathy is unclear although may be compressive from swelling. There is no evidence of compartment syndrome clinically. Lab Data Attestation: I reviewed the patient's lab results. Discharge Plan Triage Chief Complaint: Lower Extremity Injury ED Provider: Marsha Dickens Dx/Rx/DC Orders Clinical Impression: Post-op pain, Neuropathy Instructions: ED Neuropathy, Peripheral, ED Post Op Wound Check, Pain Prescriptions: No Action lisinopril 40 mg tablet 40 mg PO DAILY RF: 0 atorvastatin [Lipitor] 40 mg tablet 40 mg PO DAILY RF: 0 metoprolol tartrate 50 mg tablet 50 mg PO DAILY RF: 0 Ultra CoQ10 75 mg capsule 200 mg PO BID RF: 0 omeprazole 40 mg capsule,delayed release(DR/EC) 20 mg PO DAILY RF: 0 cyclobenzaprine 10 mg tablet 10 mg PO BID RF: 0 sennosides-docusate sodium [Vegetable Lax-Stool Softener] 8.6-50 mg Tablet 4 tab-cap PO QHS RF: 0 testosterone cypionate 200 mg/mL oil 100 mg subcut .QOWEEK RF: 0 budesonide-formoterol [Symbicort] 160-4.5 mcg/actuation HFA aerosol inhaler 2 puff INHALATION PRN PRN (Reason: ASTHMA) RF: 0 aspirin 81 mg Capsule 81 mg PO DAILY RF: 0 Hold Instructions: Resume on 03/22/21. acetaminophen [acetaminophen] 500 MG tablet 1,000 mg PO Q6H PRN Qty: 100 RF: 0 cephalexin [cephalexin] 500 MG capsule 1,000 mg PO Q8 Qty: 4 RF: 0 Eliquis 2.5 mg tablet 2.5 mg PO BID Qty: 28 RF: 0 oxycodone 5 mg tablet 5 mg PO Q4H PRN (Reason: pain) 7 Days Qty: 60 RF: 0 Primary Care Provider: Sourav Castro Referrals: Anurag Jones DO [STAFF PHYSICIAN] - Keep Haja appointment Sourav Castro MD [Primary Care Provider] - Disposition Disposition: Home, Self Care
[2021-03-21 22:06] VITALS: BP 118/65; PULSE 74; RESP 17
== END 2021-03-21 22:38 | disposition home or self-care (01) ==
PROVIDERS: Emergency Provider Emergency Medicine; PCP Family Medicine; Visit Provider Emergency Medicine
DX: M25.562 Pain in left knee (principal); J44.9 Chronic obstructive pulmonary disease, unspecified; G89.18 Other acute postprocedural pain; G62.9 Polyneuropathy, unspecified; I10 Essential (primary) hypertension; K21.9 Gastro-esophageal reflux disease without esophagitis; E78.00 Pure hypercholesterolemia, unspecified; Z79.01 Long term (current) use of anticoagulants; Z79.899 Other long term (current) drug therapy; Z96.652 Presence of left artificial knee joint; Z87.891 Personal history of nicotine dependence
CPT/HCPCS: 73562; 93971; 99282

== ENCOUNTER 2021-05-02 05:39 | Day surgery (SDC) | payer OTHER, SELFPAY ==
[2021-05-02] VITALS (9 sets, daily range): BP systolic 104–125; BP diastolic 57–77; PULSE 81–88; RESP 18; TEMP 36.3–36.8; O2SAT 97–100; BMI 31.9
[2021-05-02] MEDS: Lactated Ringers 1,000 ML 15 ML IV (06:37)
--- NOTE | 2021-05-02 07:11 | PCM.HP.BLA ---
History and Physical Date of Admission: 05/02/21 Date of Service: 05/01/21 MR#:[id number]: TOYA SOUSA CRe #:[id number] Provider:Dr. Anurag Jones, DOAge/Sex: 60/M [facility]:Signed Intake Intake Visit Reasons: Lt knee Is patient in pain?: Yes Allergies diphenhydramine [From Benadryl] Allergy (Verified 05/01/21 09:12) hyper Medications atorvastatin 40 mg tablet 40 mg PO DAILY 05/19/18 [History Confirmed 05/01/21] coenzyme Q10 75 mg capsule 200 mg PO BID 05/19/18 [History Confirmed 05/01/21] lisinopril 40 mg tablet 40 mg PO DAILY 05/19/18 [History Confirmed 05/01/21] metoprolol tartrate 50 mg tablet 50 mg PO DAILY 05/19/18 [History Confirmed 05/01/21] omeprazole 40 mg capsule,delayed release 20 mg PO DAILY 05/19/18 [History Confirmed 05/01/21] aspirin 81 mg PO DAILY 03/07/21 [History Confirmed 05/01/21] budesonide-formoterol [Symbicort] 2 puff INHALATION PRN PRN 03/07/21 [History Confirmed 05/01/21] cyclobenzaprine 10 mg PO BID 03/07/21 [History Confirmed 05/01/21] sennosides-docusate sodium [Vegetable Lax-Stool Softener] 4 tab-cap PO QHS 03/07/21 [History Confirmed 05/01/21] testosterone cypionate 100 mg SUBCUT .QOWEEK 03/07/21 [History Confirmed 05/01/21] acetaminophen 1,000 mg PO Q6H PRN #100 tab 03/21/21 [Rx Confirmed 05/01/21] oxycodone 5 mg tablet 5 mg PO Q4H PRN 7 Days #60 tab 04/25/21 [Rx Confirmed 05/01/21] PFSH Medical History (Updated 03/29/21 @ 00:00 by Background Daemon) Alcohol use Arthritis Asthma COPD (chronic obstructive pulmonary disease) CPAP (continuous positive airway pressure) dependence Esophageal cancer Former smoker Gastric reflux High cholesterol High cholesterol History of echocardiogram History of irregular heartbeat History of steroid therapy History of stress test Hx of esophageal varices Hypertension Injury of back Injury of head and neck Leg cramps Sleep apnea Wears glasses Wears partial dentures Surgical History (Updated 04/03/21 @ 16:29 by Isreal BECKETT, PA) H/O cervical spine surgery History of carpal tunnel release of both wrists Hx of elbow surgery Hx of foot surgery Hx of right knee surgery Hx of shoulder surgery Hx of tooth extraction Family History (Updated 05/19/18 @ 15:44 by Lore Lewis) Father Cancer Other Hypertension Social History (Updated 04/04/20 @ 15:[address] Anurag Jones DO) Smoking Status: Former smoker HPI Lt knee Details: Parts of this documentation were recorded by a scribe, this documentation accurately reflects the service provided and the decisions made by me, Dr. Anurag Jones DO 05/01/21 0747. TOYA SOUSA is a 60 year old M here today for s/p Left total knee arthroplasty CT guided Robotic Assisted dos 03/21/21. Patient states that he is doing well. Patient has stiffness which wakes him up at night. Patient continues to have swelling of his knee. Patient is currently in physical therapy. He has stiffness with knee flexion but good knee extension. Patient continue to take his oxycodone for pain, and taking about 3 days ago. Patient states that he went to his barn a few weeks ago when it was icy, he didnt fall but had a few slips. Ortho Exam General General: Yes no acute distress Neurologic: Yes alert Psychologic: Yes reasonable and appropriate Left Knee Skin/Wound: Yes healed, No ecchymosis, No erythema and No swelling Knee ROM: Yes ROM-Extension -20 to 0 and Yes ROM-Flexion 0-140 (110) Stability: NML: Anterior Drawer, NML: Posterior Drawer, NML: Valgus 0, NML: Valgus 30, NML: Varus 0 and NML: Varus 30 Coding Level of Care Code Global Post Op Diagnoses Stiffness of left knee M25.662 Orthopedic aftercare Z47.89 Assessment and Plan Assessment and Plan (1) Stiffness of left knee: Plan - Dr. Anurag Jones DO: Spoke with the patient about the stiffness of his knee. Explained he is a candidate for a manipulation under anesthesia to help improve his range of motion. Patient continues to improve with his range of motion. Patient wanted to proceed with a manipulation under anesthesia at this time. He will probably increase his pain medication post op. Follow up in 1 month or sooner if pain, swelling, numbness or associated symptoms, or concerns develop. All questions answered. Patient in agreement of plan. (2) Orthopedic aftercare: Plan Details Other Orders: Orders: Knee 3 Views Today Z96.659 05/01/21 1018<Electronically signed by Anurag Jones DO>Date Anurag Jones DO Cosigner Signature:Date (if applicable) CC: ~ I have re-examined the patient. There are no clinical changes since date of exam
--- NOTE | 2021-05-02 07:13 | EX.PCM.DISCH ---
Discharge Instructions Diet Discharge Diet: No restrictions Activity Weight Bearing Status: Weight bearing as tolerated Additional Activity Instructions:: Encourage full knee flexion and extension regularly. Start physical therapy immediately. May shower and return to activities as normal. Keep pain controlled with medications as discussed with Dr. Jones in order to keep full range of motion. Ice and elevate next 72 hours. Follow-up with Dr. Jones and call with any questions or concerns. Follow Up Care Please Follow Up With: Anurag Jones DO When: 4 weeks Test Results: Test results from this visit will be discussed in further detail at your follow-up appointment, if applicable. Discharge Plan Admission Attending Provider: Anurag Jones Primary Care Provider: Sourav Castro Discharge Orders/Prescriptions Prescriptions: New oxycodone 5 mg tablet 5 - 10 mg PO Q4H PRN (Reason: pain) 7 Days Qty: 30 RF: 0 No Action lisinopril 40 mg tablet 40 mg PO DAILY RF: 0 atorvastatin [Lipitor] 40 mg tablet 40 mg PO DAILY RF: 0 metoprolol tartrate 50 mg tablet 50 mg PO DAILY RF: 0 Ultra CoQ10 75 mg capsule 200 mg PO BID RF: 0 omeprazole 40 mg capsule,delayed release(DR/EC) 20 mg PO DAILY RF: 0 cyclobenzaprine 10 mg tablet 10 mg PO BID RF: 0 sennosides-docusate sodium [Vegetable Lax-Stool Softener] 8.6-50 mg Tablet 4 tab-cap PO QHS RF: 0 testosterone cypionate 200 mg/mL oil 100 mg subcut .QOWEEK RF: 0 budesonide-formoterol [Symbicort] 160-4.5 mcg/actuation HFA aerosol inhaler 2 puff INHALATION PRN PRN (Reason: ASTHMA) RF: 0 aspirin 81 mg Capsule 81 mg PO DAILY RF: 0 Hold Instructions: Resume on 03/22/21. acetaminophen [acetaminophen] 500 MG tablet 1,000 mg PO Q6H PRN Qty: 100 RF: 0 oxycodone 5 mg tablet 5 mg PO Q4H PRN (Reason: pain) 7 Days Qty: 60 RF: 0 Referrals / Follow Up: Sourav Castro MD [Primary Care Provider] - Disposition Disposition (needs filled in before D/C Order can be placed): Home, Self Care
[2021-05-02] MEDS: Cefazolin 2 GM in 0.9% Normal Saline 100 ML IV (07:15)
--- NOTE | 2021-05-02 07:17 | PCM.OPRPT ---
Report of Operation Date of Procedure: 05/02/21 Description of Surgical Findings:: Preoperative diagnosis: Arthrofibrosis left knee Postoperative diagnosis: Same Procedure: Manipulation under anesthesia with intra-articular steroid injection Anesthesia: General EBL: None Complications: None Condition: Able to PACU Indication for procedure: This is a 60-year-old male who underwent total knee arthroplasty approximately 6 weeks ago who is failed to gain her range of motion wish to undergo an elective manipulation under anesthesia to increase range of motion. risk benefits and alternatives were reviewed including risk of bleeding infection nerve, artery, bone, tissue damage, blood clot need for further surgery and continued pain. Procedure: Patient was met in the preoperative holding area once again the operative extremity was identified by both patient and physician and was marked. Patient was brought back to the operating room anesthesia was started. A timeout was called into the proper patient procedure and extremity were being contemplated. The pre-operative range of motion was lacking 3 extension and achieving 106 degrees flexion. After patient was adequately anesthetized extension manipulation was performed followed by patellar mobilization followed by gradual flexion scar tissue was palpated being released with no concerning signs for tendon rupture or fracture. Postoperative range of motion was much improved with near full extension and 130 degrees of flexion. Following the manipulation using sterile technique from the superior lateral position an intra-articular injection with 40 mg of depomedrol and 8 cc 0.25%marcaine with epi was injected. bandaid applied
[2021-05-02] MEDS: MethylPREDNISolone Acetate 40 MG/ML Vial IM (07:21)
[2021-05-02] MEDS: Bupivacaine Mpf 0.5% 30 ML VIAL (07:22)
== END 2021-05-02 23:59 | disposition home or self-care (01) ==
LOC: SDC 05:40 → AC 05:41
PROVIDERS: PCP Family Medicine; Referring Provider Orthopaedic Surgery; Visit Provider Orthopaedic Surgery
PROC: (CPT 27570; principal; 2021-05-02 07:10)
DX: M25.662 Stiffness of left knee, not elsewhere classified (principal); J44.9 Chronic obstructive pulmonary disease, unspecified; E78.00 Pure hypercholesterolemia, unspecified; Z87.891 Personal history of nicotine dependence; I10 Essential (primary) hypertension
CPT/HCPCS: 27570; 01380; J7120

== ENCOUNTER 2021-06-28 17:43 | Outpatient (CLI) | payer OTHER, SELFPAY ==
[2021-06-28 18:23] LABS: Amphetamine Urine VISTA NEGATIVE (<1000 ng/mL); Barbiturate Urine VISTA NEGATIVE (< 200 ng/mL); Benzodiazepine Urine VISTA NEGATIVE (< 200 ng/mL); Cocaine Urine VISTA NEGATIVE (< 300 ng/mL); Ecstacy Urine VISTA NEGATIVE (< 500 ng/mL); Methadone Urine VISTA NEGATIVE (< 300 ng/mL); PCP Urine VISTA NEGATIVE (< 25 ng/mL); THC Urine VISTA NEGATIVE (< 50 ng/mL); Vista UDS pH Range 5
== END 2021-06-28 23:59 | disposition home or self-care (01) ==
PROVIDERS: PCP Family Medicine; Referring Provider Anesthesiology Pain Medicine; Visit Provider Anesthesiology Pain Medicine
DX: F11.20 Opioid dependence, uncomplicated (principal)
CPT/HCPCS: 80307

== ENCOUNTER → 2022-04-17 | Outpatient (CLI) | payer OTHER, SELFPAY ==
[2022-04-17 18:27] LABS: Amphetamine Urine VISTA NEGATIVE (<1000 ng/mL); Barbiturate Urine VISTA NEGATIVE (< 200 ng/mL); Benzodiazepine Urine VISTA NEGATIVE (< 200 ng/mL); Cocaine Urine VISTA NEGATIVE (< 300 ng/mL); Ecstacy Urine VISTA NEGATIVE (< 500 ng/mL); Methadone Urine VISTA NEGATIVE (< 300 ng/mL); PCP Urine VISTA NEGATIVE (< 25 ng/mL); THC Urine VISTA NEGATIVE (< 50 ng/mL); Vista UDS pH Range 6
== END | disposition home or self-care (01) ==
LOC: LABSPEC 17:20 → LAB 04-18 08:06
PROVIDERS: PCP Family Medicine; Visit Provider Anesthesiology Pain Medicine
DX: F11.20 Opioid dependence, uncomplicated (principal)
CPT/HCPCS: 80307

== ENCOUNTER → 2024-04-16 | Outpatient (CLI) | payer MEDICARE, SELFPAY ==
--- NOTE | 2024-04-16 13:48 | VDLE_ITS ---
Reason For Study: Bilateral leg swelling RIGHT LEFT CFV is compressible, spontaneous, phasic, CFV is compressible, spontaneous, phasic, competent and demonstrates normal competent, and demonstrates normal augmentation. augmentation. FV is compressible, phasic, and INCOMPETENT FV is compressible, spontaneous, phasic, for greater than 1.0 second. competent and demonstrates normal POP V is compressible, spontaneous, phasic, augmentation. competent and demonstrates normal POP V is compressible, phasic, and augmentation. INCOMPETENT for greater than 1.0 second. T/P Trunk is compressible. T/P Trunk is compressible. PTV is compressible. PTV is compressible. RT PerV is compressible. LT PerV is compressible. SFJ is INCOMPETENT and measures 0.59 cm. SFJ is INCOMPETENT and measures 0.76 cm. GSV proximal thigh measures 0.48 x 0.53 cm. GSV proximal thigh measures 0.78 x 0.80 cm. GSV at knee measures 0.69 x 0.70 cm. GSV above knee is INCOMPETENT for greater GSV INCOMPETENT throughout for greater than than 0.5 seconds. 0.5 seconds. GSV at knee measures 0.24 x 0.27 cm. ASV proximal calf is INCOMPETENT for greater GSV below knee is competent. than 0.5 seconds and measures 0.25 x 0.31 cm. ASV distal thigh is INCOMPETENT for greater ASV distal thigh is INCOMPETENT for greater than 0.5 seconds and measures 0.74 x 0.83 cm. than 0.5 seconds and measures 0.21 x 0.25 cm. SSV mid calf is INCOMPETENT for greater than ASV distal thigh feeds varicose veins in 0.5 seconds and measures 0.28 x 0.31 cm. prox-mid calf. Thrombus filled varicose veins noted in the right prox-mid calf. INCOMPETENT resident care provider noted 26 cm above knee. INCOMPETENT perforators noted 22 cm and 12 cm above medial malleolus. SSV mid calf is INCOMPETENT for greater than 0.5 seconds and measures 0.25 x 0.29 cm. Procedure This is a venous duplex using B-mode, color flow and spectral Doppler. Exam performed in department. Patient was scanned in reverse Trendelenburg position during reflux assessment. A preliminary report was called and/or faxed to [facility]. VL/Venous Duplex US - Gokul Extrem Interpretation Summary Thrombus filled varicose veins noted in the right prox-mid calf. Deep veins of the bilateral lower extremities are patent and compressible segme ntally. There is no evidence of bilateral lower extremity deep vein thrombosis. The bilateral great saphenous veins appear patent and compressible segmentally. Positive for reflux in the right femoral vein, saphenofemoral junction, great s aphenous vein throughout, accessory saphenous vein in distal thigh, small saphenous vein, jason f perforators. Positive for reflux in the left popliteal vein, saphenofemoral junction, great saphenous vein above the knee, accessory saphenous vein in the distal thigh, small saphenous vein. Ordering Physician: Belgica Mckee Referring Physician: MD Whitney Sourav Performed By: Jyoti Reinoso, RVT
== END | disposition home or self-care (01) ==
LOC: CVS 13:44
PROVIDERS: PCP Family Medicine; Referring Provider Physician Assistant; Visit Provider Physician Assistant
DX: I87.2 Venous insufficiency (chronic) (peripheral) (principal); R60.0 Localized edema
CPT/HCPCS: 93970

== ENCOUNTER → 2024-07-15 | Outpatient (CLI) | payer MEDICARE, SELFPAY ==
--- NOTE | 2024-07-15 15:01 | NEURO ---
NCS and/or EMG Patient Report Ordering Doctor: Belgica Mckee DATE OF SERVICE: 07/15/24 Edson presents with sharp pain and burning in both lower limbs. Symptoms are from the knees to the feet. Electrodiagnostic findings: Right peroneal motor nerve demonstrates normal distal latency, amplitude with borderline reduced conduction velocity. Left peroneal motor nerve demonstrates prolonged latency with reduced amplitude and reduced conduction velocity. Tibial motor response demonstrates decreased conduction velocity on the left. Prolonged tibial and peroneal F?waves. Prolonged H?reflux bilaterally. Sensory responses are not obtainable. Needle EMG testing was performed the lower limbs. 1+ fibrillations noted in the left gastrocnemius. Motor unit action potentials of normal amplitude and duration Electrodiagnostic impression: This is an abnormal study. 1. Electrodiagnostic findings suggestive of peripheral polyneuropathy with motor and sensory nerve involvement. There is evidence of axonal loss and demyelination. 2. There is no electrodiagnostic evidence for lumbosacral radiculopathy. Multi Select Codes Neurology Neurology Interp Codes: 79992-73 Musc test done w/n test comp (interp) (2) and 40870-31 Nrv cndj test 9-10 studies (interp)
== END | disposition home or self-care (01) ==
LOC: PSN 07:07
PROVIDERS: PCP Family Medicine; Referring Provider Physician Assistant; Visit Provider Physician Assistant
DX: G57.93 Unspecified mononeuropathy of bilateral lower limbs (principal)
CPT/HCPCS: 95886; 95911

== ENCOUNTER → 2024-09-01 | Outpatient (CLI) | payer MEDICARE, SELFPAY ==
[2024-09-01 20:40] LABS: Amphetamine Urine NEGATIVE (<1000 ng/mL); Barbiturate Urine NEGATIVE (< 200 ng/mL); Benzodiazepine Urine NEGATIVE (< 200 ng/mL); Buprenorphine Urine NEGATIVE (< 200 ng/mL); Cocaine Urine NEGATIVE (< 300 ng/mL); Fentanyl, Urine NEGATIVE; Methadone Urine NEGATIVE (< 300 ng/mL); Opiates Urine NEGATIVE (< 300 ng/mL); Oxycodone, Urine NEGATIVE (< 100 ng/mL); PCP Urine NEGATIVE (< 25 ng/mL); THC Urine NEGATIVE (< 50 ng/mL)
== END | disposition home or self-care (01) ==
LOC: LAB 13:59
PROVIDERS: PCP Family Medicine; Referring Provider Anesthesiology Pain Medicine; Visit Provider Anesthesiology Pain Medicine
DX: F11.20 Opioid dependence, uncomplicated (principal)
CPT/HCPCS: 80307

== ENCOUNTER 2024-09-18 17:05 | Inpatient (IN) | payer MEDICARE, SELFPAY ==
[2024-09-18 18:18] VITALS: BP 129/80; PULSE 80; RESP 16; TEMP 36.2; O2SAT 100
[2024-09-18 19:38] VITALS: PULSE 80; RESP 16; O2SAT 99
[2024-09-18] MEDS: Magnesium Chloride 64 MG Delay Rel.Tablet 128 MG PO (21:28)
[2024-09-18] MEDS: Fluticasone/Salmeterol 232-14 Inhaler 1 PUFF INHALATION (21:28)
[2024-09-19 06:30] VITALS: BMI 27.0
[2024-09-19 06:47] LABS: Hematocrit 30.1 % (40-54); Hemoglobin 10.3 g/dL (13.0-16.5); Immature Granulocytes Count 0.070 X10^3/uL (0.0-0.0); Mean Corp Hgb Conc 34.2 g/dL (32-36); Mean Corpuscular Volume 95.6 fL (80-94); Mean Platelet Vol. 9.2 fl (6.2-12.0); NRBC Flagged by Analyzer 0 % (0-5); POSITIVE DIFFERENTIAL YES; Platelet Count 222 K/mm3 (150-450); RBC Distribution Width CV 14.4 % (11.6-14.6); RBC Distribution Width SD 50.4 fl (35.1-43.9); Red Blood Count 3.15 M/mm3 (4.6-6.2); White Blood Count 5.7 K/mm3 (4.4-11.0)
[2024-09-19 07:18] LABS: Anion Gap 9 (5-15); BUN 19 mg/dL (4-19); BUN/Creat Ratio 24.5 RATIO (10-20); Calcium,Total 9.4 mg/dL (7.6-11.0); Carbon Dioxide 22.1 mmol/L (21.0-32.0); Chloride 96 mmol/L (98-108); Estimated Creatinine Clearance 84.92 ml/min (50-250); Glucose 94 mg/dL (70-99); Potassium 4.8 mmol/L (3.3-5.1)
[2024-09-19 08:30] VITALS: BP 111/62; PULSE 94; RESP 18; TEMP 36.4; O2SAT 98
[2024-09-19] MEDS: Magnesium Chloride 64 MG Delay Rel.Tablet 128 MG PO ×2 (08:33→19:59)
[2024-09-19] MEDS: Fluticasone/Salmeterol 232-14 Inhaler 1 PUFF INHALATION ×2 (08:33→20:34)
[2024-09-19] MEDS: Thiamine Hydrochloride 100 MG Tablet PO (08:33)
[2024-09-19] MEDS: Tuberculin,Purif.prot.deriv. 50 TU/ML Vial 0.1 ML ID (08:34)
--- NOTE | 2024-09-19 10:09 | PCM.HP.STD ---
HPI - General General Date of Admission: 09/18/24 Date of Service: 09/21/24 Chief Complaint: Here for rehabilitation. HPI Narrative TOYA SOUSA, is a 64 Male who presents with followin09/13/2024 Admit to [facility] from [facility] ER. Nausea, vomiting, decreased oral intake for months, began March 2024. Weak over last several days, confused. Creatinine 4.99, K 5.9, Sodium 126, Urinalysis negative. CT head negative. IV fluids, insulin, dextrose given for hyperkalemia. Hold Lisinopril, order renal ultrasound, consult Nephrology, give IV fluids for acute kidney injury, dehydration. Zofran 4mg iv q6h prn nausea. IV fluids for hyponatremia. CIWA, PRN phenobarbital for alcohol abuse. Repeat Creatinine at [facility] 3.2. Renal ultrasound showed exophytic cyst. Hyponatremia improved with fluid restriction, Tolvaptan. Continue 1200mL fluid restriction. GI performed EGD for Barretts Esophagus, biopsy negative for metaplasia. 09/18/2024 Admit to TCU with debility, here for rehabilitation, strengthening, prior to discharge home alone. [facility] Medical History (Updated 09/19/24 @ 10:[address] Kyle Buitrago MD) Wears partial dentures Wears glasses Alcohol use History of steroid therapy Arthritis High cholesterol Injury of back Injury of head and neck Gastric reflux Former smoker CPAP (continuous positive airway pressure) dependence Sleep apnea COPD (chronic obstructive pulmonary disease) Asthma Leg cramps History of stress test History of echocardiogram History of irregular heartbeat Hx of esophageal varices Esophageal cancer High cholesterol Hypertension Home Medications ?Medication ?Instructions ?Recorded ?Last Taken ?Type atorvastatin 40 mg tablet (Lipitor) 40 mg PO DAILY cholesterol 05/19/18 09/17/24 History coenzyme Q10 75 mg capsule (Ultra 200 mg PO BID 05/19/18 03/20/21 History CoQ10) lisinopril 40 mg tablet 40 mg PO DAILY 05/19/18 05/02/21 04:00 History metoprolol tartrate 50 mg tablet 50 mg PO DAILY 05/19/18 05/02/21 04:00 History omeprazole 40 mg capsule,delayed 40 mg PO DAILY stomach 05/19/18 05/02/21 04:00 History release aspirin 81 mg capsule 81 mg PO DAILY [facility] 03/07/21 09/18/24 History budesonide-formoterol HFA 160 1 puff inhalation BID ASTHMA 03/07/21 03/20/21 History mcg-4.5 mcg/actuation aerosol inhaler (Symbicort) sennosides 8.6 mg-docusate sodium 4 tab-cap PO QHS 03/07/21 03/20/21 History 50 mg tablet (Vegetable Laxative-Stool Softener) testosterone cypionate 200 mg/mL 100 mg subcut .QOWEEK 03/07/21 03/20/21 History intramuscular oil acetaminophen 500 mg tablet 1,000 mg (2 x 500 mg) PO Q6H PRN 03/21/21 Unknown Rx #100 tabs oxycodone 5 mg tablet 5 - 10 mg (1 - 2 x 5 mg) PO Q4H 05/15/21 Unknown Rx PRN pain 7 days #30 tabs oxycodone 5 mg tablet 5 mg PO Q4H PRN pain 7 days #30 05/15/21 Unknown Rx tabs baclofen 10 mg tablet 10 mg PO QDAY 08/14/24 Unknown History atorvastatin 20 mg tablet (Lipitor) 20 mg PO DAILY cholesterol 09/18/24 09/17/24 History cetirizine 10 mg tablet 10 mg PO BID allergies 09/18/24 Unknown History folic acid 1 mg tablet 1 mg PO DAILY supplement 09/18/24 Unknown History magnesium oxide 400 mg (241.3 mg 400 mg PO BID supplement 09/18/24 Unknown History magnesium) tablet oxycodone-acetaminophen 5 mg-325 2 tab PO BID PRN pain (scale score 09/18/24 09/18/24 History mg tablet 1-10) thiamine HCl (vitamin B1) 100 mg 100 mg PO DAILY supplement 09/18/24 Unknown History tablet Allergy/AdvReac Type Severity Reaction Status Date / Time diphenhydramine (From Allergy hyper Verified 08/14/24 15:04 Benadryl) Family History Father Cancer Other Hypertension Surgical History History of total left knee replacement (~03/2021) Hx of tooth extraction Hx of elbow surgery Hx of shoulder surgery Hx of foot surgery Hx of right knee surgery (~2008) History of carpal tunnel release of both wrists H/O cervical spine surgery Social History (Updated 09/19/24 @ 10:[address] Kyle Buitrago MD) household members: none Smoking Status: Former smoker alcohol intake: current alcohol intake frequency: 3 or more drinks per day substance use type: does not use ROS Constitutional Constitutional: Reports weakness; Denies chills, fever(s) or weight gain ENT HEENT: Denies headache(s), nasal congestion or nasal discharge Cardiovascular Cardiovascular: Denies chest pain or palpitations Respiratory/Chest Respiratory/Chest: Denies cough, excessive phlegm production or shortness of breath with exertion Gastrointestinal Gastrointestinal: Denies abdominal pain, nausea or vomiting Genitourinary Genitourinary: Denies dysuria Musculoskeletal Musculoskeletal: Denies joint pain or joint swelling Integumentary Integumentary: Denies rash or wounds Neurologic Neurologic: Denies focal weakness, numbness or tingling Psychiatric Psychiatric: Denies anxiety, auditory hallucinations, depression, homicidal ideation or suicidal ideation Vital Signs Vital Signs Vital Signs: 09/18/24 18:18 09/18/24 19:38 09/18/24 22:00 Temperature 97.2 F L Temperature Source Temporal Pulse Rate 80 80 Pulse Rhythm Regular Pulse Strength Normal (2+) Normal (2+) Respiratory Rate 16 16 Respiratory Effort Normal Non-Labored Respiratory Depth Normal Respiratory Pattern Normal Blood Pressure 129/80 H Blood Pressure Mean 96 Blood Pressure Source Monitor Blood Pressure Position Sitting Blood Pressure Location Right Arm Pulse Ox 100 99 Oxygen Delivery Method Room Air Room Air 09/19/24 08:30 Temperature 97.6 F L Temperature Source Temporal Pulse Rate 94 Pulse Rhythm Pulse Strength Respiratory Rate 18 Respiratory Effort Respiratory Depth Respiratory Pattern Blood Pressure 111/62 Blood Pressure Mean 78 Blood Pressure Source Monitor Blood Pressure Position Sitting Blood Pressure Location Right Arm Pulse Ox 98 Oxygen Delivery Method Room Air Weight Weight: 78.075 kg Body Mass Index (BMI) 27.0 Physical Exam Const alert General Appearance: cooperative HEENT normocephalic Eyes PERRL and EOMs intact bilaterally Neck supple, no JVD and no carotid bruits Resp normal respiratory effort, normal air movement and clear to auscultation bilaterally Cardio regular rate and regular rhythm GI normal to inspection, nondistended, normoactive bowel sounds, non-tender and non-distended Extremity normal capillary refill General Extremity: Negative for edema Skin no rashes or lesions noted General Skin Exam: no breakdown Psych affect normal Appearance: appropriate Results Lab / Micro Data 09/19/24 06:33 09/21/24 05:06 Labs: Laboratory Results - last 24 hr 09/19/24 06:33: WBC 5.7, RBC 3.15 L, Hgb 10.3 L, Hct 30.1 L, MCV 95.6 H, MCH 32.7 H, MCHC 34.2, RDW Std Deviation 50.4 H, RDW Coeff of Jamie 14.4, Plt Count 222, MPV 9.2, Immature Gran % (Auto) 1.200 H, Neut % (Auto) 73.9 H, Lymph % (Auto) 10.4 L, Starr % (Auto) 11.3 H, Eos % (Auto) 2.7, Baso % (Auto) 0.5, Absolute Neuts (auto) 4.2, Absolute Lymphs (auto) 0.59 L, Nucleated RBC % 0, Sodium 127 L, Potassium 4.8, Chloride 96 L, Carbon Dioxide 22.1, Anion Gap 9, BUN 19, Creatinine 0.78, Estim Creat Clear Calc 84.92, Est GFR (MDRD) Non-Af 99, BUN/Creatinine Ratio 24.5 H, Glucose 94, Calcium 9.4 Assessment & Plan Assessment/Plan (1) Debility: (2) Encephalopathy: (3) Acute kidney injury: (4) Hyperkalemia: (5) Hyponatremia: (6) Dehydration: (7) Nausea & vomiting: (8) Essential (primary) hypertension: (9) Hyperlipidemia, unspecified: (10) GERD (gastroesophageal reflux disease): (11) Hypogonadism: (12) Muscle spasm: (13) COPD (chronic obstructive pulmonary disease): (14) Alcohol abuse: (15) Barretts esophagus: PLAN: Plan 64 year old male with below past medical history hospitalized for encephalopathy 2/2 acute kidney injury, hyperkalemia, hyponatremia, dehydration, complicated by nausea/vomiting, Barretts esophagus, admitted to TCU with debility, here for rehabilitation, strengthening, prior to discharge home alone. Debility - PT/OT. Pain - Tylenol 1000mg q6 prn pain (1-5), Oxycodone 10mg bid prn pain (6-10). Bowel - Senna/colace 2 tablets bid, Magnesium citrae 300mL daily prn. Adult immunization - Administer pneumonia vaccine, covid vaccine, flu vaccine as appropriate. DVT prophylaxis - Lovenox 40mg sc daily. CV prophylaxis - Aspirin 81mg daily. Hyperlipidemia - Atorvastatin 20mg qhs. COPD - Fluticasone/Salmeterol 232-14 1 puff q12. Alcohol Abuse - Folic acid 1mg daily, Thiamine 100mg daily. Allergic rhinitis - Loratadine 10mg bid. Hypomagnesemia - Magnesium chloride 128mg bid thru 09/25/2024. Barretts esophagus - biopsy negative, Pantoprazole 40mg daily. Hyponatremia - Sodium 127, fluid restriction 1200mL, trend BMP. Insomnia - Melatonin 10mg qhs.
[2024-09-19] MEDS: Senna/Docusate Sodium 1 Tablet 2 TABLET PO ×2 (12:00→20:00)
[2024-09-19 15:52] VITALS: PULSE 78; RESP 16; O2SAT 99
--- NOTE | 2024-09-19 17:58 | NURSING ---
dr ferrell notified of pt request for something for arthritis-arthritic compound order BID PRN
--- NOTE | 2024-09-19 21:08 | PHA.CONS_ITS ---
Documented by User: Maya Stahl 09/19/24 21:31 TCU RX Drug Regimen Review Subjective/Objective Subjective/Objective Subjective: TCU Admission. 64 YOM presented to outside ER with N/V and decreased oral intake. Hospitalized for encephalopathy 2/2 acute kidney injury, hy perkalemia, hyponatremia, dehydration, complicated by nausea/vomiting, Barretts esophagus. Admitted to TCU with debility for strengthening and rehabilitation. Objective: Allergies diphenhydramine (From Benadryl) Allergy (Verified 08/14/24 15:04) hyper Current Medications Generic Name Dose Route Start Last Admin Trade Name Freq PRN Reason Stop Dose Admin Acetaminophen 1,000 mg 09/19/24 10:20 Acetaminophen 500 Mg Tablet PO Q6H PRN PRN Pain Score 1-5 Aspirin 81 mg 09/19/24 08:00 09/19/24 08:31 Aspirin 81 Mg Tab.Chew PO 81 mg BREAKFAST AZEEM Administration Atorvastatin Calcium 20 mg 09/18/24 22:00 09/19/24 19:59 Atorvastatin Calcium 20 Mg Tablet PO 20 mg QHS AZEEM Administration Compound Med 2 click 09/19/24 16:17 Arthritis Pain Compound 60 Click Tube TOPICAL BID PRN arthritis pain Protocol Enoxaparin Sodium 40 mg 09/20/24 06:00 Enoxaparin 40 Mg/0.4 Ml Syringe SC DAILY@0600 AZEEM Folic Acid 1 mg 09/19/24 08:00 09/19/24 08:32 Folic Acid 1 Mg Tablet PO 1 mg BREAKFAST AZEEM Administration Loratadine 10 mg 09/18/24 22:00 09/19/24 19:59 Loratadine 10 Mg Tablet PO 10 mg BID AZEEM Administration Magnesium Chloride 128 mg 09/18/24 22:00 09/19/24 19:59 Magnesium Chloride 64 Mg Delay Rel.Tablet PO 09/25/24 22:01 128 mg BID AZEEM Administration Magnesium Citrate 300 ml 09/19/24 10:20 Magnesium Citrate 300 Ml PO DAILY PRN Constipation Oxycodone HCl 10 mg 09/18/24 17:56 09/19/24 12:36 Oxycodone 5 Mg Tablet PO 10 mg BID PRN Administration Pain Score 6-10 or Pre PT/OT Pantoprazole Sodium 40 mg 09/19/24 10:00 09/19/24 08:34 Pantoprazole Sodium 40 Mg Tablet PO 40 mg DAILY AZEEM Administration Fluticasone/Salmeterol 1 puff 09/18/24 22:00 09/19/24 20:34 Fluticasone/Salmeterol 232-14 Inhaler INHALATION 1 puff Q12 AZEEM Administration Senna/Docusate Sodium 2 tablet 09/19/24 10:30 09/19/24 20:00 Senna/Docusate Sodium 1 Tablet PO 2 tablet BID AZEEM Administration Sodium Chloride 10 - 40 ml 09/18/24 18:20 0.9% Saline Lock 10 Ml Syringe IV UD PRN SALINE FLUSH Thiamine HCl 100 mg 09/19/24 08:00 09/19/24 08:33 Thiamine Hydrochloride 100 Mg Tablet PO 100 mg DAILYCM AZEEM Administration Tuberculin PPD 0.1 ml 09/26/24 10:00 Tuberculin,Purif.Prot.Deriv. 50 Tu/Ml Vial ID 09/26/24 10:01 X1 ONE Problem List Barretts esophagus (Acute) Alcohol abuse (Acute) COPD (chronic obstructive pulmonary disease) (Chronic) Muscle spasm (Acute) Hypogonadism (Acute) GERD (gastroesophageal reflux disease) (Acute) Hyperlipidemia, unspecified (Acute) Essential (primary) hypertension (Acute) Nausea & vomiting (Acute) Dehydration (Acute) Hyponatremia (Acute) Hyperkalemia (Acute) Acute kidney injury (Acute) Encephalopathy (Acute) Debility (Acute) Vital Signs Temp Pulse Resp BP Pulse Ox O2 Del Method 97.6 F L 78 16 111/62 99 Room Air 09/19/24 08:30 09/19/24 15:52 09/19/24 15:52 09/19/24 08:30 09/19/24 15:52 09/19/24 15:52 Oxygen Delivery Method Room Air Weight: 78.075 kg Body Mass Index (BMI) 27.0 Sodium 127 mmol/L (133-145) L 09/19/24 06:33 Potassium 4.8 mmol/L (3.3-5.1) 09/19/24 06:33 Chloride 96 mmol/L (98-108) L 09/19/24 06:33 Carbon Dioxide 22.1 mmol/L (21.0-32.0) 09/19/24 06:33 Anion Gap 9 (5-15) 09/19/24 06:33 BUN 19 mg/dL (4-19) 09/19/24 06:33 Creatinine 0.78 mg/dL (0.70-1.20) 09/19/24 06:33 Est GFR (MDRD) Non-Af 99 (>60) 09/19/24 06:33 BUN/Creatinine Ratio 24.5 RATIO (10-20) H 09/19/24 06:33 Glucose 94 mg/dL (70-99) 09/19/24 06:33 Assessment/Plan: 1. Pain: acetaminophen 1000mg PO Q6H PRN pain 1-5 and oxycodone 10mg PO BID PRN pain 6-10. Resident has had 2 doses of oxycodone for pain scores of 5 and 7 in the foot/wrist. Please continue to monitor for PRN usage, increased pain, constipation, respiratory depression and falls (MARTAs). 2. Bowel: senna/docusate 2T PO BID and magnesium citrate 300mL PO daily PRN constipation. No PRN doses given. Please continue to monitor for constipation and PRN usage. Last documented bowel movement was 09/19/24. 3. DVT prophylaxis: enoxaparin 40mg SC daily. Please continue to monitor for S/S of bleeding/DVT, hemoglobin (last 10.3g/dL), platelets (last 222,000) and renal function. 4. CV prophylaxis: aspirin 81mg PO breakfast. Please continue to monitor for S/S of bleeding and hemoglobin (last 10.3g/dL). 5. COPD: fluticasone/salmeterol 232/14mcg 1 puff Q12. Please continue to monitor for SOB/wheezing, HR (range 78-94), thrush. Please rinse mouth with water and spit following administration to prevent thrush. 6. Hyperlipidemia: atorvastatin 20mg PO QHS. Please consider ordering a lipid panel as there is no panel in the chart. Thanks. Please continue to monitor for muscle pain. 7. Barretts esophagus: pantoprazole 40mg PO daily. Please continue to monitor for S/S of heartburn and diarrhea (BEERs). 8. Allergic rhinitis: loratadine 10mg PO BID. Please continue to monitor for S/S of allergies and renal function. 9. Alcohol abuse: folic acid 1mg PO daily and thiamine 100mg PO daily. Please continue to monitor. 10. Hypomagnesemia: magnesium chloride 128mg PO BID thru 09/25/24. Please consi andrea ordering a magnesium as there is no recent level in the chart. Thanks. Assessment/Plan for indications treated with psychotropic medications: Resident is not prescribed scheduled or prn psychotropic medications at the time of this drug regimen review. Medical chart and medication regimen reviewed. The following medication irregularities or issues were identified: 1. Atorvastatin 20mg PO QHS. Please consider ordering a lipid panel as there is no panel in the chart. Thanks. 2. Magnesium chloride 128mg PO BID thru 09/25/24. Please consider ordering a magnesium as there is no recent level in the chart. Thanks. Date Date of Note: 09/19/24 Documented by User: Dr. Kyel Buitrago MD 09/20/24 10:03 TCU RX Drug Regimen Review Provider Comments Provider responsibility Provider Comments to Recommendations by Pharmacy Agree
[2024-09-20 06:46] VITALS: RESP 16
[2024-09-20 08:01] LABS: Anion Gap 10 (5-15); BUN 13 mg/dL (4-19); BUN/Creat Ratio 18.3 RATIO (10-20); Calcium,Total 9.3 mg/dL (7.6-11.0); Carbon Dioxide 21.8 mmol/L (21.0-32.0); Chloride 96 mmol/L (98-108); Estimated Creatinine Clearance 84.92 ml/min (50-250); Glucose 87 mg/dL (70-99); Potassium 4.6 mmol/L (3.3-5.1)
[2024-09-20 10:03] VITALS: BP 108/83; PULSE 94; RESP 18; TEMP 36.8; O2SAT 99
[2024-09-20] MEDS: Fluticasone/Salmeterol 232-14 Inhaler 1 PUFF INHALATION ×2 (10:07→20:09)
[2024-09-20] MEDS: Magnesium Chloride 64 MG Delay Rel.Tablet 128 MG PO ×2 (10:07→20:09)
[2024-09-20] MEDS: Thiamine Hydrochloride 100 MG Tablet PO (10:07)
[2024-09-20] MEDS: Senna/Docusate Sodium 1 Tablet 2 TABLET PO ×2 (10:08→20:10)
[2024-09-21 05:49] LABS: Anion Gap 11 (5-15); BUN 11 mg/dL (4-19); BUN/Creat Ratio 16.1 RATIO (10-20); Calcium,Total 9.2 mg/dL (7.6-11.0); Carbon Dioxide 21.0 mmol/L (21.0-32.0); Chloride 97 mmol/L (98-108); Cholesterol 153 mg/dL (<=200); Estimated Creatinine Clearance 84.92 ml/min (50-250); Glucose 91 mg/dL (70-99); Low Density Lipoprotein Calc. 89 mg/dL; Magnesium 1.1 mg/dL (1.5-2.2); Potassium 4.2 mmol/L (3.3-5.1); Triglycerides 106 mg/dL; Very Low Density Lipoprotein 21 mg/dL (5-40); cholesterol:hdl ratio screen 3.54
[2024-09-21] MEDS: Fluticasone/Salmeterol 232-14 Inhaler 1 PUFF INHALATION ×2 (07:54→20:37)
[2024-09-21] MEDS: Thiamine Hydrochloride 100 MG Tablet PO (07:55)
[2024-09-21] MEDS: Senna/Docusate Sodium 1 Tablet 2 TABLET PO ×2 (07:56→20:38)
[2024-09-21] MEDS: Magnesium Chloride 64 MG Delay Rel.Tablet 128 MG PO ×2 (07:56→20:38)
--- NOTE | 2024-09-21 10:40 | NURSING ---
Offered covid vaccine, VIS provided. Resident declines.
--- NOTE | 2024-09-21 13:10 | NURSING ---
[employer] Police Officer Note; Activity Asset: Tiera Sandhu is independent in his choice of daily activities. He reads, watches tv, enjoys being outside and family. He welcomes visits from the optical lathe operator and therapy dog when available. Staff will remind him of weekly activities and respect his right to say no.
[2024-09-21 16:00] VITALS: BP 115/72; PULSE 91; RESP 18; TEMP 36.2; O2SAT 98
[2024-09-21] MEDS: MELATONIN 10 MG TABLET PO (20:37)
--- NOTE | 2024-09-21 20:41 | NURSING ---
Pt requested 2200 medications at 2030 Administered medications at this time per pt request.
[2024-09-21 21:46] VITALS: PULSE 81; RESP 18; O2SAT 96
[2024-09-22 06:13] LABS: Anion Gap 11 (5-15); BUN 10 mg/dL (4-19); BUN/Creat Ratio 14.0 RATIO (10-20); Calcium,Total 9.3 mg/dL (7.6-11.0); Carbon Dioxide 22.5 mmol/L (21.0-32.0); Chloride 97 mmol/L (98-108); Estimated Creatinine Clearance 84.92 ml/min (50-250); Glucose 90 mg/dL (70-99); Potassium 4.1 mmol/L (3.3-5.1)
[2024-09-22] MEDS: Fluticasone/Salmeterol 232-14 Inhaler 1 PUFF INHALATION ×2 (09:49→20:26)
[2024-09-22] MEDS: Senna/Docusate Sodium 1 Tablet 2 TABLET PO ×2 (09:52→20:26)
[2024-09-22] MEDS: Thiamine Hydrochloride 100 MG Tablet PO (09:52)
[2024-09-22] MEDS: Magnesium Chloride 64 MG Delay Rel.Tablet 128 MG PO ×2 (09:52→20:26)
[2024-09-22 09:59] VITALS: BP 124/67; PULSE 82; RESP 16; TEMP 36.8; O2SAT 95
[2024-09-22 13:51] LABS: Hematocrit 28.1 % (40-54); Hemoglobin 9.8 g/dL (13.0-16.5); Immature Granulocytes Count 0.040 X10^3/uL (0.0-0.0); Mean Corp Hgb Conc 34.9 g/dL (32-36); Mean Corpuscular Volume 94.6 fL (80-94); Mean Platelet Vol. 8.2 fl (6.2-12.0); NRBC Flagged by Analyzer 0 % (0-5); POSITIVE DIFFERENTIAL YES; Platelet Count 290 K/mm3 (150-450); RBC Distribution Width CV 14.3 % (11.6-14.6); RBC Distribution Width SD 48.7 fl (35.1-43.9); Red Blood Count 2.97 M/mm3 (4.6-6.2); White Blood Count 5.2 K/mm3 (4.4-11.0)
[2024-09-22 14:36] LABS: Ferritin 732 ng/mL (37-417); Magnesium 1.0 mg/dL (1.5-2.2)
--- NOTE | 2024-09-22 15:11 | NURSING ---
This nurse received call from pts. daughter Adrienne. Adrienne requesting update on pt. and had questions regarding lab values. This nurse answered Adrienne's questions to the best of this nurses ability and reviewed labs with Adrienne. Adrienne asked this nurse when pts. next lab values would be drawn. Pt. planned discharge date tomorrow, this nurse informed Adrienne no labs are ordered to be drawn prior to discharge. Adrienne asked this nurse if physician would recheck labs prior to discharge. This nurse paged physician in regards to pts. daughters request. This nurse received telephone orders from physician to order, CBC with Diff, Ferritin, and Magnesium. This nurse entered orders, and called Adrienne when labs resulted with updated lab values. Adrienne had additional questions and concerns for physician and asked if physician could call her. Written communication left for physician to call pts. daughter Adrienne.
--- NOTE | 2024-09-22 15:50 | CASEMGMT ---
Addendum entered by Zully Myers 09/23/24 08:20: HEIDY spoke with and he remains agreeable for pt to DC today as planned. HEIDY sent referral to [facility] via [facility]. Addendum entered by Zully Myers 09/22/24 15:56: SW received call from dtr, Adrienne, inquiring about DC tomorrow. HEIDY explained pt is adlib, not meeting skilled criteria, and IDT agreeable to DC. Pt denied continued therapy. Pt is A&Ox3 and can make his own decisions. Dtr expressed concerns with pts living alone prior and medical decline d/t pt not caring for his home or self properly. Dtr stated pt is extremely dishonest; I love my dad, but I can't pick my family. SW provided active listening to dtr's concerns and this worker unaware of concerns ; pt did not share any concerns. Dtr inquired about several medical concerns. HEIDY offered that Dr. Buitrago will speak with pt this evening for DC, and can call dtr to discuss, then if disagrees with DC, he can cancel DC or pt can leave AMA. Dtr agreed and appreciative. - HEIDY spoke with MARIANN and left written communication for Dr to contact dtr. Original Note: Social Work SW met with patient to complete initial assessment. Introduced self and role. Verified contacts. Patient confirmed code status as full code. Pt provided this worker with paper copies of HCPOA completed at [facility]. SW placed copies on chart and HIM bin. HEIDY educated to [facility] insurance with [facility]D 09/23. Pt is already adlib in the room and unit with FWW. Pt requested to set DC date. HEIDY to collaborate with IDT and will follow up with pt after to confirm. Explored pt's needs at [place]. Pt does not have a FWW; HEIDY to coordinate, if recommended. Pt denied continued therapy. pt would not meet homebound requirements for HHC. Pt states he will complete HEP. - HEIDY spoke with IDT at and IDT agree to DC. Pt does not have continued skill needs. FIRST OFFICER would recommend continuing with therapy to practice advancing from walker to a cane, and would recommend having a walker at home. - HEIDY returned to pt's room to update on agreement to DC and above. Pt continued to deny therapy but agreeable to FWW. SW to refer to [facility] and have delivered to the room prior to DC, if pt can DC about 1300. Pt agreed. SW confirmed cancelation of POC meeting tomorrow. Pt to notify dtr for transport. Pt appreciative. Plan: DC home alone 09/23, no therapy, FWW Zully Myers FELT STRIP FINISHER SOFTWARE ENGINEERING SPECIALIST
[2024-09-22 17:26] VITALS: BMI 27.2
--- NOTE | 2024-09-22 20:14 | DS.PCM_ITS ---
Providers Date of Admission: 09/18/24 Primary Care Physician: Dr. Sourav Castro MD Reason For Visit: ARF/DEHYDRATION Diagnosis Discharge Diagnosis (1) Debility: Status: Acute Code(s): R53.81 - Other malaise (2) Encephalopathy: Status: Acute Code(s): G93.40 - Encephalopathy, unspecified (3) Acute kidney injury: Status: Acute Code(s): N17.9 - Acute kidney failure, unspecified (4) Hyperkalemia: Status: Acute Code(s): E87.5 - Hyperkalemia (5) Hyponatremia: Status: Acute Code(s): E87.1 - Hypo-osmolality and hyponatremia (6) Dehydration: Status: Acute Code(s): E86.0 - Dehydration (7) Nausea & vomiting: Status: Acute Code(s): R11.2 - Nausea with vomiting, unspecified (8) Essential (primary) hypertension: Status: Acute Code(s): I10 - Essential (primary) hypertension (9) Hyperlipidemia, unspecified: Status: Acute Code(s): E78.5 - Hyperlipidemia, unspecified (10) GERD (gastroesophageal reflux disease): Status: Acute Code(s): K21.9 - Gastro-esophageal reflux disease without esophagitis (11) Hypogonadism: Status: Acute (12) Muscle spasm: Status: Acute Code(s): M62.838 - Other muscle spasm (13) COPD (chronic obstructive pulmonary disease): Status: Chronic Code(s): J44.9 - Chronic obstructive pulmonary disease, unspecified (14) Alcohol abuse: Status: Acute Code(s): F10.10 - Alcohol abuse, uncomplicated (15) Barretts esophagus: Status: Acute Code(s): K22.70 - Busch's esophagus without dysplasia Plan 64 year old male with below past medical history hospitalized for encephalopathy 2/2 acute kidney injury, hyperkalemia, hyponatremia, dehydration, complicated by nausea/vomiting, Barretts esophagus, admitted to TCU with debility, here for rehabilitation, strengthening, prior to discharge home alone. * Debility - PT/OT. * Pain - Tylenol 1000mg q6 prn pain (1-5), Oxycodone 10mg bid prn pain (6-10). * Bowel - Senna/colace 2 tablets bid, Magnesium citrae 300mL daily prn. * Adult immunization - Administer pneumonia vaccine, covid vaccine, flu vaccine as appropriate. * DVT prophylaxis - Lovenox 40mg sc daily. * CV prophylaxis - Aspirin 81mg daily. * Hyperlipidemia - Atorvastatin 20mg qhs. * COPD - Fluticasone/Salmeterol 232-14 1 puff q12. * Alcohol Abuse - Folic acid 1mg daily, Thiamine 100mg daily. * Allergic rhinitis - Loratadine 10mg bid. * Hypomagnesemia - Magnesium chloride 128mg bid thru 09/25/2024. * Barretts esophagus - biopsy negative, Pantoprazole 40mg daily. * Hyponatremia - Sodium 127, fluid restriction 1200mL, trend BMP. * Insomnia - Melatonin 10mg qhs. Medications at Discharge Home Medications atorvastatin 40 mg tablet (Lipitor) 40 mg PO DAILY cholesterol 05/19/18 coenzyme Q10 75 mg capsule (Ultra CoQ10) 200 mg PO BID 05/19/18 lisinopril 40 mg tablet 40 mg PO DAILY 05/19/18 metoprolol tartrate 50 mg tablet 50 mg PO DAILY 05/19/18 omeprazole 40 mg capsule,delayed release 40 mg PO DAILY stomach 05/19/18 aspirin 81 mg capsule 81 mg PO DAILY heart health 03/07/21 budesonide-formoterol HFA 160 mcg-4.5 mcg/actuation aerosol inhaler (Symbicort) 1 puff inhalation BID ASTHMA 03/07/21 sennosides 8.6 mg-docusate sodium 50 mg tablet (Vegetable Laxative-Stool Softener) 4 tab-cap PO QHS 03/07/21 testosterone cypionate 200 mg/mL intramuscular oil 100 mg subcut .QOWEEK 03/07/21 acetaminophen 500 mg tablet 1,000 mg (2 x 500 mg) PO Q6H PRN #100 tabs 03/21/21 oxycodone 5 mg tablet 5 - 10 mg (1 - 2 x 5 mg) PO Q4H PRN pain 7 days #30 tabs 05/15/21 oxycodone 5 mg tablet 5 mg PO Q4H PRN pain 7 days #30 tabs 05/15/21 baclofen 10 mg tablet 10 mg PO QDAY 08/14/24 atorvastatin 20 mg tablet (Lipitor) 20 mg PO DAILY cholesterol 09/18/24 cetirizine 10 mg tablet 10 mg PO BID allergies 09/18/24 folic acid 1 mg tablet 1 mg PO DAILY supplement 09/18/24 magnesium oxide 400 mg (241.3 mg magnesium) tablet 400 mg PO BID supplement 09/18/24 oxycodone-acetaminophen 5 mg-325 mg tablet 2 tab PO BID PRN pain (scale score 1- 10) 09/18/24 thiamine HCl (vitamin B1) 100 mg tablet 100 mg PO DAILY supplement 09/18/24 Hospital Course Operations None Procedures None Summary of Care Provided Minutes Spent on Discharge: 35 Hospital Course: 64 year old male with below past medical history hospitalized for encephalopathy 2/2 acute kidney injury, hyperkalemia, hyponatremia, dehydration, complicated by nausea/vomiting, Barretts esophagus, admitted to TCU with debility, here for rehabilitation, strengthening, prior to discharge home alone. I told Edson he is a alcoholic, that 1 more drink equals . I told his daughter Adrienne the same. He promised he would stop drinking, but from experience, I doubt it. Physical Exam Const alert General Appearance: cooperative HEENT normocephalic Eyes PERRL and EOMs intact bilaterally Neck supple, no JVD and no carotid bruits Resp normal respiratory effort, normal air movement and clear to auscultation bilaterally Cardio regular rate and regular rhythm GI normal to inspection, nondistended, normoactive bowel sounds, non-tender and non-distended Extremity normal capillary refill General Extremity: Negative for edema Skin no rashes or lesions noted General Skin Exam: no breakdown Psych affect normal Appearance: appropriate Weight / BMI Weight Weight: 78.653 kg Body Mass Index (BMI) 27.2 ABG / Lab / Microbiology Data 09/22/24 13:40 09/22/24 05:20 Laboratory: Laboratory Results - last 24 hr 09/22/24 05:20: Sodium 130 L, Potassium 4.1, Chloride 97 L, Carbon Dioxide 22.5, Anion Gap 11, BUN 10, Creatinine 0.71, Estim Creat Clear Calc 84.92, Est GFR (MDRD) Non-Af 101, BUN/Creatinine Ratio 14.0, Glucose 90, Calcium 9.3 09/22/24 13:40: WBC 5.2, RBC 2.97 L, Hgb 9.8 L, Hct 28.1 L, MCV 94.6 H, MCH 33.0 H, MCHC 34.9, RDW Std Deviation 48.7 H, RDW Coeff of Jamie 14.3, Plt Count 290, MPV 8.2, Immature Gran % (Auto) 0.800, Neut % (Auto) 79.1 H, Lymph % (Auto) 7.8 L, [place] % (Auto) 10.3 H, Eos % (Auto) 1.6, Baso % (Auto) 0.4, Absolute Neuts (auto) 4.1, Absolute Lymphs (auto) 0.40 L, Nucleated RBC % 0, Magnesium 1.0 L, F erritin 732 H D/C Instructions Discharge Activity: Return to Normal Activity, May Shower and Use Walker Weight Bearing Status: Weight bearing as tolerated Call your doctor if you observe: Fever of 101 or Higher, Inability to urinate, Inability to have a bowel movement, Shortness of breath, Dizziness, Fainting spells, Swelling in the ankles, Chest pain and Uncontrolled pain DC O2, CPAP, BIPAP Needs Home O2 Discharge instructions: No Additional Instructions: Discharge home alone 09/23/2024, no therapy, FWW. FWW: Patient is unsafe to use a cane and requires a walker for ambulation in the home and the community. Meaningful Use Info Meaningful Use Meaningful Use Diagnoses (Choose all that apply): None applicable Discharge Plan Admission Admit Date/Time: 09/18/24 17:05 Primary Reason for Your Visit: Debility. Attending Provider: Kyle Buitrago Chi Primary Care Provider: Sourav Castro Instructions Additional Instructions / Restrictions: 1200mL Fluid restriction. Discharge home alone 09/23/2024, no therapy, FWW. FWW: Patient is unsafe to use a cane and requires a walker for ambulation in the home and the community. Discharge Orders/Prescriptions Prescriptions: No Action lisinopril 40 mg tablet 40 mg PO DAILY atorvastatin [Lipitor] 40 mg tablet 40 mg PO DAILY metoprolol tartrate 50 mg tablet 50 mg PO DAILY Ultra CoQ10 75 mg capsule 200 mg PO BID omeprazole 40 mg capsule,delayed release(DR/EC) 40 mg PO DAILY sennosides-docusate sodium [Vegetable Lax-Stool Softener] 8.6-50 mg Tablet 4 tab-cap PO QHS testosterone cypionate 200 mg/mL oil 100 mg subcut .QOWEEK Patient Comments: INJECT 0.5ML EVERY OTHER WEEK budesonide-formoterol [Symbicort] 160-4.5 mcg/actuation HFA aerosol inhaler 1 puff INHALATION BID Patient Comments: INHALE ONE PUFF INTO THE LUNGS TWICE DAILY aspirin 81 mg Capsule 81 mg PO DAILY acetaminophen [acetaminophen] 500 MG tablet 1,000 mg PO Q6H PRN Qty: 100 0RF folic acid 1 mg tablet 1 mg PO DAILY magnesium oxide 400 mg (241.3 mg magnesium) tablet 400 mg PO BID Rx Instructions: x7 days oxycodone-acetaminophen 5-325 mg tablet 2 tab PO BID PRN (Reason: pain (scale score 1-10)) thiamine HCl (vitamin B1) 100 mg tablet 100 mg PO DAILY cetirizine 10 mg tablet 10 mg PO BID atorvastatin [Lipitor] 20 mg tablet 20 mg PO DAILY oxycodone 5 mg tablet 5 - 10 mg PO Q4H PRN (Reason: pain) 7 Days Qty: 30 0RF oxycodone 5 mg tablet 5 mg PO Q4H PRN (Reason: pain) 7 Days Qty: 30 0RF Referrals / Follow Up: Sourav Castro MD [Primary Care Provider] - Disposition Disposition (needs filled in before D/C Order can be placed): Home, Self Care
[2024-09-22] MEDS: MELATONIN 10 MG TABLET PO (20:26)
--- NOTE | 2024-09-22 20:29 | NURSING ---
Pt requested evening medications at 2019. Administered medications at this time per pt request. Pt noncompliant with rinsing mouth out after inhaler use despite education. Pt noncompliant with fluid restriction of 1200 mL. Dayshift nurse reports pt filling up water cup at sink and drinking water that was unaccounted for the daily intake. Pt educated regarding need for fluid restriction, verbalized understanding.
[2024-09-23 06:10] VITALS: PULSE 81; RESP 16; O2SAT 97
--- NOTE | 2024-09-23 08:54 | NURSING ---
Senior Marketing Specialist Note; MDS for 09/23/2024 Complete
[2024-09-23 09:26] VITALS: BP 122/78; PULSE 81; RESP 16; TEMP 36.4; O2SAT 98
[2024-09-23] MEDS: Magnesium Chloride 64 MG Delay Rel.Tablet 128 MG PO (09:28)
[2024-09-23] MEDS: Senna/Docusate Sodium 1 Tablet 2 TABLET PO (09:28)
[2024-09-23] MEDS: Thiamine Hydrochloride 100 MG Tablet PO (09:28)
[2024-09-23] MEDS: Fluticasone/Salmeterol 232-14 Inhaler 1 PUFF INHALATION (09:29)
--- NOTE | 2024-09-23 11:28 | CASEMGMT ---
Social Work Son elected to still have POC meeting and pt agreed. IDT met with patient and son at bedside, then dtr via conference call for care plan meeting. Family heard updates from team. SW reiterated to pt the importance of following fluid restriction and other medical recommendations to prevent decline and rehospitalizations. Dr. Buitrago agreed to have pt continue with DC as planned. Family expressed understanding. Pt will have FWW delivered to room then pt can DC. Son will transport. Dtr requested resources on alcohol abuse. SW agreed and provided printed resources for family and pt. All appreciative. No other concerns noted. Zully Myers IT ARCHITECTURE ANALYST CARTON COUNTER FEEDER
--- NOTE | 2024-09-23 11:35 | NURSING ---
pt provided stool sample just before being dc'd to home. sent to lab
--- NOTE | 2024-09-29 09:05 | MDS.RN ---
Information for the MDS was obtained from review of the clinical record, interview of resident, staff, and direct observation of resident?s care.
== END 2024-09-23 11:38 | disposition home or self-care (01) | DRG 641 ==
PROVIDERS: Admitting Provider Family Medicine Geriatric Medicine; PCP Family Medicine; Referring Provider Family Medicine Geriatric Medicine; Visit Provider Family Medicine Geriatric Medicine
DX: E87.1 Hypo-osmolality and hyponatremia (principal); E78.00 Pure hypercholesterolemia, unspecified; J44.89 Other specified chronic obstructive pulmonary disease; I10 Essential (primary) hypertension; F10.10 Alcohol abuse, uncomplicated; M62.838 Other muscle spasm; K22.70 Barrett's esophagus without dysplasia; E83.42 Hypomagnesemia; J30.9 Allergic rhinitis, unspecified; E87.5 Hyperkalemia; E86.0 Dehydration; G47.00 Insomnia, unspecified; Z79.899 Other long term (current) drug therapy; Z79.51 Long term (current) use of inhaled steroids; Z87.891 Personal history of nicotine dependence
CPT/HCPCS: 36415; 80048; 80061; 82274; 82728; 83735; 85025; 97110; 97116; 97162; 97165; 97530; 97535; 97802

== ENCOUNTER → 2024-12-15 | Outpatient (CLI) | payer MEDICARE, SELFPAY | END | disposition home or self-care (01) | PROVIDERS: PCP Family Medicine; Referring Provider Anesthesiology Pain Medicine; Visit Provider Anesthesiology Pain Medicine | DX: M54.16 Radiculopathy, lumbar region (principal) | CPT/HCPCS: 72148 ==

== ENCOUNTER → 2024-12-16 | Outpatient (CLI) | payer MEDICARE, SELFPAY ==
[2024-12-16 18:17] LABS: Hematocrit 43.4 % (40-54); Hemoglobin 14.6 g/dL (13.0-16.5); Immature Granulocytes Count 0.020 X10^3/uL (0.0-0.0); Mean Corp Hgb Conc 33.6 g/dL (32-36); Mean Corpuscular Volume 89.1 fL (80-94); Mean Platelet Vol. 9.5 fl (6.2-12.0); NRBC Flagged by Analyzer 0 % (0-5); Platelet Count 264 K/mm3 (150-450); RBC Distribution Width CV 12.5 % (11.6-14.6); RBC Distribution Width SD 41.2 fl (35.1-43.9); Red Blood Count 4.87 M/mm3 (4.6-6.2); White Blood Count 7.0 K/mm3 (4.4-11.0)
[2024-12-16 18:30] LABS: Prothrombin Time (Protime)PT. 13.7 SECONDS (11.7-14.9)
[2024-12-16 18:32] LABS: Ammonia 63.8 umol/L (16-60)
[2024-12-16 19:02] LABS: AST(SGOT) 35 U/L (<=37); Alanine Aminotransfer ALT/SGPT 29 U/L (<=46); Albumin, Serum 4.2 g/dL (3.4-4.8); Alkaline Phosphatase 79 U/L (40-129); Anion Gap 13 (5-15); BUN 10 mg/dL (4-19); BUN/Creat Ratio 13.0 RATIO (10-20); Calcium,Total 9.8 mg/dL (7.6-11.0); Carbon Dioxide 23.0 mmol/L (21.0-32.0); Chloride 99 mmol/L (98-108); Globulin 2.8 g/dL (2.2-4.2); Glucose 144 mg/dL (70-99); Potassium 3.9 mmol/L (3.3-5.1); Vitamin B12 357 pg/mL (180-914)
[2024-12-16 19:03] LABS: CRP < 3.00 mg/L (0.0-3.0); Magnesium 1.5 mg/dL (1.5-2.2)
[2024-12-18 14:08] LABS: ANTINUCLEAR ANTIBODIES DIRECT Negative (Negative)
[2024-12-21 22:07] LABS: Albumin 3.8 g/dL (2.9-4.4); Folate, Hemolysate Test 560.0 ng/mL (Not Estab.); Folate, RBC (Hct) Test 46.5 % (37.5-51.0); Folates, RBC Test 1204 ng/mL (>498); Gamma Globulin 0.8 g/dL (0.4-1.8); Immunoglobulin A 99 mg/dL (61-437); Immunoglobulin G 864 mg/dL (603-1613); Immunoglobulin M 44 mg/dL (20-172); PROEL- TOTAL PROTEIN 6.6 g/dL (6.0-8.5); VITAMIN B6 9.0 ug/L (3.4-65.2); Vitamin B1, Thiamine 128.3 nmol/L (66.5-200.0)
== END | disposition home or self-care (01) ==
PROVIDERS: PCP Family Medicine
DX: G95.9 Disease of spinal cord, unspecified (principal); G62.9 Polyneuropathy, unspecified
CPT/HCPCS: 36415; 80053; 82140; 82607; 82747; 82784; 83735; 83883; 84165; 84207; 84425; 84443; 85014; 85025; 85610; 85652; 86038; 86140; 86225; 86334

== ENCOUNTER → 2024-12-16 | Outpatient (CLI) | payer MEDICARE, SELFPAY ==
--- NOTE | 2024-12-16 16:29 | MRI_ITS ---
PROCEDURE: MRI SPINE CERVICAL (ROUTINE) 12/16/2024 REASON FOR EXAM: CERVICAL MYELOPATHY TECHNIQUE: Procedure Code: MRISP Modality: MR Procedure: SPINE CERVICAL (ROUTINE) Multiplanar and multisequential MRI of the cervical spine was performed without contrast. COMPARISON: C-spine radiographs dated 05/19/2018. FINDINGS: Cervical vertebrae are preserved in height, no evidence of acute fracture. Postoperative changes of anterior cervical discectomy and fusion at C4-5 with associated metallic susceptibility artifact. Degenerative grade 1 anterolisthesis of C3 on C4, and C6 on C7 both by 3-4 mm. Multilevel spondylotic changes with varying degrees of disc desiccation and narrowing, anterior endplate osteophytosis, uncovertebral spurring and hypertrophic facet arthropathy. High-grade spinal canal stenosis at C3-4 with focal cord impingement and mild T2 hyperintense cord signal abnormality/edema at this level. Remainder of the visualized spinal cord appears normal. Visualized contents of the posterior fossa are unremarkable. Unremarkable paravertebral soft tissues. C2-3: No significant spinal canal or foraminal narrowing. C3-4: Advanced spinal canal stenosis secondary to grade 1 anterolisthesis of C3, with partially uncovered dorsal disc bulge as well as ligamentum flavum/facet hypertrophy, with cord impingement. Advanced bilateral neural foraminal stenosis. C4-5: No substantial spinal canal or neural foraminal narrowing. C5-6: No spinal canal narrowing. Mild-moderate bilateral neural foraminal narrowing. C6-7: Mild spinal canal narrowing due to grade 1 anterolisthesis of C6 with partially uncovered dorsal disc bulge, and ligamentum flavum/facet hypertrophy. Moderate bilateral foraminal narrowing. C7-T1: No spinal canal or neural foraminal narrowing. MRI/Spine Cervical (Routine) IMPRESSION: 1. Mild multilevel spondylotic changes and postoperative changes of C4-5 ACDF. 2. Degenerative grade 1 anterolisthesis of C3 on C4, and C6 on C7. 3. Advanced spinal canal stenosis at C3-4, with cord impingement and mild cord signal abnormality/edema at this level. 4. Advanced neural foraminal narrowing at C3-4, and moderate at C6-7. Reading Location: [id number]
== END | disposition home or self-care (01) ==
LOC: OPMRI 16:25
PROVIDERS: PCP Family Medicine
DX: G95.9 Disease of spinal cord, unspecified (principal); G62.9 Polyneuropathy, unspecified
CPT/HCPCS: 36415; 72141; 80053; 82140; 82607; 82747; 82784; 83735; 83883; 84165; 84207; 84425; 84443; 85014; 85025; 85610; 85652; 86038; 86140; 86225; 86334

== ENCOUNTER 2024-12-17 12:54 | Inpatient (IN) | payer MEDICARE, SELFPAY ==
[2024-12-17] VITALS (11 sets, daily range): BP systolic 130–157; BP diastolic 79–103; PULSE 75–97; RESP 16–22; TEMP 36.1–36.6; O2SAT 95–98; BMI 29.7; BMI 29.0
--- NOTE | 2024-12-17 13:33 | EX.ED.DYSGE1 ---
HPI History of Present Illness Chief Complaint: Other, Pain/Inj Informant: patient and family Onset/Context/Timing Onset: Month(s) Context: Gradual Onset Timing: Continuous Current Severity: Moderate Maximum Severity: Moderate Narrative Narrative: C4-year-old male 2 prior neck fusions anterior approach 2010 2011. Has been having worsening right sided weakness. Intermittent neck and low back pain. Has been worked up by neurology seen yesterday had MRIs of his cervical and lumbar spine lumbar spine has not been read as of yet the cervical spine showed C3-C4 spinal stenosis with spinal cord impingement and edema. He was sent to the emergency department for further evaluation. Prior similar symptoms: Yes Recent Illness/Hospitalization: No PFSH [facility] Medical History Wears partial dentures Wears glasses Alcohol use History of steroid therapy Arthritis High cholesterol Injury of back Injury of head and neck Gastric reflux Former smoker CPAP (continuous positive airway pressure) dependence Sleep apnea COPD (chronic obstructive pulmonary disease) Asthma Leg cramps History of stress test History of echocardiogram History of irregular heartbeat Hx of esophageal varices Esophageal cancer High cholesterol Hypertension Home Medications ?Medication ?Instructions ?Recorded ?Last Taken ?Type aspirin 81 mg capsule 81 mg PO DAILY heart health 03/07/21 09/18/24 History atorvastatin 20 mg tablet (Lipitor) 20 mg PO DAILY cholesterol 09/18/24 09/17/24 History budesonide-formoterol HFA 160 1 puff inhalation BID PRN ASTHMA 12/16/24 Unknown History mcg-4.5 mcg/actuation aerosol inhaler (Symbicort) cetirizine 10 mg tablet 10 mg PO QDAY allergies 12/16/24 Unknown History omeprazole 20 mg capsule,delayed 20 mg PO QDAY 12/16/24 Unknown History release baclofen 5 mg tablet 5 mg PO TID 12/17/24 Unknown History tramadol 50 mg tablet 50 mg PO BID 12/17/24 Unknown History Allergy/AdvReac Type Severity Reaction Status Date / Time diphenhydramine (From Allergy hyper Verified 12/17/24 12:59 Benadryl) Family History Father Cancer Other Hypertension Surgical History History of total left knee replacement (~03/2021) Hx of tooth extraction Hx of elbow surgery Hx of shoulder surgery Hx of foot surgery Hx of right knee surgery (~2008) History of carpal tunnel release of both wrists H/O cervical spine surgery Social History household members: none Smoking Status: Former smoker alcohol intake: former substance use type: does not use ROS ROS ED ROS Narrative Denies recent illness. Weakness right arm and leg. Constitutional Constitutional ED: Denies chills or fever(s) Eyes Eyes: Denies blurry vision ENT ENT ED: Denies ear pain Cardiovascular Cardiovascular: Denies chest pain Respiratory/Chest Respiratory/Chest: Denies cough or dyspnea Gastrointestinal Gastrointestinal: Denies abdominal pain Genitourinary Genitourinary ED: Denies dysuria Musculoskeletal Musculoskeletal: Reports back pain and neck pain; Denies arthralgias Integumentary Denies abscess or Abrasions Neurologic Neurologic: Denies headache(s) Psychiatric Psychiatric: Denies anxiety or depression Endocrine Endocrinology: Denies cold intolerance, heat intolerance, polydipsia, polyphagia or polyuria Hematologic/Lymphatic Hematologic/Lymphatic: Reports none Allergic/Immunologic Allergic/Immunologic ED: Denies mouth swelling, tongue swelling or urticaria EXAM Physical Exam Narrative Exam Narrative: Sick 4-year-old male vital signs stable afebrile. Sitting upright in bed. Family at bedside. H EENT exam pupils round react light. Moist membranes. No facial droop. Normal speech. Tongue midline. C-spine nontender. Trachea midline. Lungs clear to auscultation bilaterally. Heart regular rhythm no murmur. Rate about 75. Chest wall ribs nontender. Abdomen soft nontender. Moving all 4 extremities. Weaker on the right upper and lower extremity than the left. He has about 3 out of 5 manager commercial sales strength on the right 4 out of 5 on the left and about 3 out of 5 strength in the right leg versus the left. He does have sensation. Back is nontender. Const Vital Signs: 12/17/24 12:56 12/17/24 13:08 12/17/24 13:54 Temperature 97.1 F L 98 F Temperature Source Temporal Pulse Rate 75 82 Respiratory Rate 16 22 H Respiratory Effort Normal Non-Labored Respiratory Pattern Normal Blood Pressure 130/80 H 136/94 H Blood Pressure Mean 96 108 Pulse Ox 97 97 Oxygen Delivery Method Room Air Positive well nourished and well developed; Negative for cachectic, contractures or unkempt General Appearance ED: well developed and NAD; Negative for unkempt, cachectic, contractures, cyanotic, diaphoretic or pallor Nutritional Appearance: Negative for cachectic HEENT Reports moist mucous membranes Negative for trauma or tenderness Eyes PERRL and EOMs intact bilaterally General Eye ED: Negative for pale conjunctiva or scleral icterus Neck no lymphadenopathy, supple and no JVD Chest Wall inspection of chest normal and palpation of chest normal Resp normal respiratory effort and clear to auscultation bilaterally Cardio regular rate, regular rhythm, S1 normal heart sound, S2 normal heart sound and no murmurs GI normal to inspection, nondistended, normoactive bowel sounds, non-tender, non-distended and no masses Auscultation: normoactive bowel sounds Palpation: soft; Negative for tender or guarding Back/Spine no CVA tenderness Extremity Negative for normal to inspection Extremity Narrative: Right upper and lower extremity weakness greater than left but bilateral weakness. Neuro oriented x3 and CN's II-XII intact bilaterally Sensorium / Orientation: alert Motor Exam: strength abnormal Psych mental status grossly normal Appearance: Negative for unkempt Skin no rashes or lesions noted and no wounds General Skin Exam: Negative for jaundice or pallor Lesions: No lesion noted Rashes: No rashes noted MDM MDM MDM Narrative Medical decision making narrative: 66-year-old male has C3-4 spinal stenosis with edema and cord impingement. I have spine surgery on page. I spoke to Dr. Méndez of spine. He has reviewed the patient's MRI. Patient will be admitted. Dr. Osborne plans on doing surgery on him on Saturday. Patient will be given IV Decadron. Dr. Méndez wanted C-spine films helping plan for surgery. History & Record Review Discussion w/independent historian: Patient and Family Additional record(s) reviewed:: Prior inpatient record, Prior outpatient record, Prior ED visit and Prior labs Lab Data Attestation: I reviewed the patient's lab results. Lab results narrative: CBC unremarkable. Chemistries show a gap of 7. BUN and creatinine are 10 and 0.78. Discharge Plan Dx/Rx/DC Orders Clinical Impression: Weakness, Cervical spinal stenosis, History of neck surgery Disposition Disposition: Acute Care [facility]
--- NOTE | 2024-12-17 13:57 | PCM.HP.STD ---
HPI - General General Date of Admission: 12/17/24 Date of Service: 12/17/24 Chief Complaint: Worsening bilateral upper and lower extremity weakness HPI Narrative TOYA SOUSA, is a 64 M who presented to [facility] ED on 12/17/2024 with worsening bilateral upper and lower extremity weakness. MRI cervical spine and lumbar spine were ordered by his outpatient neurologist and completed yesterday. MRI cervical spine showed advanced spinal canal stenosis at C3-4 with cord impingement and mild cord signal abnormality/edema consistent with acute cervical cord compression leading to progressive quadriparesis. MRI lumbar spine official read is pending but per neurology appear to show high-grade stenosis in the lumbar spine at about L4-5. Dr. Rich with neurology discussed the case with Dr. Méndez and they recommended the patient come to the ED for further evaluation, with plan for admission with preoperative testing and then cervical spine plus or minus lumbar spine procedures. Further medical history as below. In the ED patient was hemodynamically stable on room air at rest and sitting back comfortably in bed. CBC and CMP were unremarkable. Patient did have an ammonia level of 63 of unclear significance. No other concerning lab findings. ED physician discussed with Dr. Méndez who noted that due to scheduling issues, tentative plan will be for procedure on Thursday 12/21. Hospitalist was then contacted for admission. I saw the patient at bedside in the ED. Patient was sitting back comfortably in bed, conversing normally, in no acute distress. He was alert and oriented x 3 and had no cognitive delay noted. He lives at home alone, does have family that lives close by. Notes that he has had increasing difficulty doing anything around the house due to his progressive weakness. Denies any recent alcohol use. No other acute concerns currently. Will be admitted for further management. Patient's medical history is significant for 2 prior cervical spine fusions in 2010 and 2011 with chronic neck pain, work accident in early 2023 with multiple right hand partial digit amputations and now chronic low back pain, esophageal carcinoma treated with radioablation intervention, prior alcohol and tobacco abuse, hypertension and hyperlipidemia. Patient presented to the [place] vascular surgery office in March of this year per request of his PCP for persistent bilateral lower extremity swelling. Vascular studies were negative but patient reported worsening polyneuropathy. EMG on 07/15 showed peripheral polyneuropathy with motor and sensory nerve involvement with evidence of axonal loss and demyelination. He was then referred to outpatient neurology but did not see them in the office until 12/16. See neurology office note from yesterday for further details. In short, he presented using a walker with severe gait impairment and reported numbness and essentially inability to move his right leg. MRIs were ordered and patient was then sent to the ED as above. Importantly, patient was also hospitalized at [facility] from 09/13-09/18 for acute renal failure with hyperkalemia and hyponatremia. See Dr. Buitrago's H&P note from 09/19 for further details. In short, he presented them with nausea, vomiting, decreased oral intake, weakness and confusion. Was found to have creatinine 4.99, potassium 5.9, sodium 126. Nephrology followed and noted FILI was due to prerenal etiology from dehydration and improved well with IV fluid resuscitation. 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 GI also performed EGD there and found Busch's esophagus but biopsy was negative for metaplasia. He was only in the TCU from 09/19-09/22 and was then able to be discharged home. [facility] Medical History Wears partial dentures Wears glasses Alcohol use History of steroid therapy Arthritis High cholesterol Injury of back Injury of head and neck Gastric reflux Former smoker CPAP (continuous positive airway pressure) dependence Sleep apnea COPD (chronic obstructive pulmonary disease) Asthma Leg cramps History of stress test History of echocardiogram History of irregular heartbeat Hx of esophageal varices Esophageal cancer High cholesterol Hypertension Home Medications ?Medication ?Instructions ?Recorded ?Last Taken ?Type aspirin 81 mg capsule 81 mg PO DAILY heart health 03/07/21 09/18/24 History atorvastatin 20 mg tablet (Lipitor) 20 mg PO DAILY cholesterol 09/18/24 09/17/24 History budesonide-formoterol HFA 160 1 puff inhalation BID PRN ASTHMA 12/16/24 Unknown History mcg-4.5 mcg/actuation aerosol inhaler (Symbicort) cetirizine 10 mg tablet 10 mg PO QDAY allergies 12/16/24 Unknown History omeprazole 20 mg capsule,delayed 20 mg PO QDAY 12/16/24 Unknown History release baclofen 5 mg tablet 5 mg PO TID 12/17/24 Unknown History tramadol 50 mg tablet 50 mg PO BID 12/17/24 Unknown History Allergy/AdvReac Type Severity Reaction Status Date / Time diphenhydramine (From Allergy hyper Verified 12/17/24 12:59 Benadryl) Family History Father Cancer Other Hypertension Surgical History History of total left knee replacement (~03/2021) Hx of tooth extraction Hx of elbow surgery Hx of shoulder surgery Hx of foot surgery Hx of right knee surgery (~2008) History of carpal tunnel release of both wrists H/O cervical spine surgery Social History household members: none Smoking Status: Former smoker alcohol intake: former substance use type: does not use ROS Constitutional Constitutional: Denies chills, fatigue or fever(s) Eyes Eyes: Denies change in vision Cardiovascular Cardiovascular: Denies chest pain Respiratory/Chest Respiratory/Chest: Denies shortness of breath at rest Gastrointestinal Gastrointestinal: Denies abdominal pain Genitourinary Genitourinary: Denies difficulty urinating or urinary incontinence Musculoskeletal Musculoskeletal: Reports back pain and neck pain; Denies myalgias Neurologic Neurologic: Reports abnormal gait, focal weakness, numbness, paresthesias and tingling; Denies abnormal speech, confusion, dizziness or headache(s) Vital Signs Vital Signs Vital Signs: 12/17/24 12:56 12/17/24 13:08 12/17/24 13:54 Temperature 97.1 F L 98 F Temperature Source Temporal Pulse Rate 75 82 Respiratory Rate 16 22 H Respiratory Effort Normal Non-Labored Respiratory Pattern Normal Blood Pressure 130/80 H 136/94 H Blood Pressure Mean 96 108 Pulse Ox 97 97 Oxygen Delivery Method Room Air Weight Weight: 86 kg Body Mass Index (BMI) 29.7 Physical Exam Const alert, oriented x3, no apparent distress and average body habitus Constitutional Narrative: Upper middle-age male, alert and oriented x 3, sitting back comfortably in bed, conversing normally, in no acute distress. General Appearance: cooperative and comfortable HEENT normocephalic, head/scalp atraumatic, hearing grossly normal bilaterally, nasal mucous membranes and turbinates normal and moist oral mucous membranes Eyes PERRL, EOMs intact bilaterally and conjunctivae normal Neck supple Neck Narrative: Decreased ROM noted. Chest inspection of chest normal Resp normal respiratory effort, normal air movement, no use of accessory muscles and clear to auscultation bilaterally Cardio regular rate, regular rhythm, no murmurs and peripheral pulses 2+ throughout GI normal to inspection, nondistended, normoactive bowel sounds, soft to palpation, non-tender and non-distended Back/Spine Back/Spine Narrative: Mild lumbar paraspinal musculature tenderness noted. No spinal point tenderness noted. Mild decreased range of motion noted. Extremity normal to inspection and no pedal edema Skin no rashes or lesions noted Neuro Neuro Narrative: Moving all 4 extremities. Generally weaker on the right upper and lower extremity than on the left side. Speech: speech normal Psych mental status grossly normal Results Lab / Micro Data 12/17/24 13:35 Assessment & Plan Assessment/Plan (1) Cervical spinal stenosis: (2) Weakness: PLAN: Plan Patient is a 64-year-old male who presented [facility] ED on 12/17/2024 with worsening bilateral upper and lower extremity weakness. 1. Acute cervical cord compression with progressive quadriparesis, suspected severe lumbar spine stenosis ? Admit under inpatient status [facility] Dr. Méndez with orthopedic surgery consulted. See HPI above for further details. In short, MRI C-spine on 12/16 showed findings consistent with acute cervical cord compression. MRI L-spine official read pending but per neurology there is concern for high-grade stenosis at about L4-5. Presented with progressive quadriparesis for the past several months. No bowel or bladder dysfunction and no other exam findings concerning for critical cord compression requiring need for urgent surgery. Per Dr. Méndez, tentative plan is for procedure on cervical spine plus or minus lumbar spine on Thursday 12/21. Preoperative evaluation as below. Pain control with Tylenol as needed and tramadol 50 mg twice daily as needed (OARRS reviewed). PT/OT/case management consulted. Was given 1 dose of IV Decadron 10 mg in the ED; will defer to orthopedics on need for further steroids. DVT prophylaxis with Lovenox as below. Home baby aspirin continued for now as well. 2. Preoperative evaluation ? Labs/imaging: Hemoglobin 14.6, creatinine 0.7, both stable at baseline. No other significant lab abnormalities noted. Chest x-ray with mild chronic lung changes seen but no focal infiltrates, pulmonary edema or pleural effusions noted and patient stable on room air at rest. No other labs or imaging needed preoperatively. ? Cardiac eval: Patient hemodynamically stable on room air at rest. Physical exam unremarkable. Chest x-ray as above. EKG ordered. No volume overload or concern for heart failure noted so no need for further testing such as echocardiogram or stress test preoperatively. ? Medications: Will defer to orthopedics on if and when baby aspirin needs to be held. Okay to continue other home medications perioperatively. ? Prior procedural complications: None. ? Recommendation: Pending EKG results, patient is medically optimized for procedure. 3. Hypertension/hyperlipidemia ? Was previously on lisinopril but apparently had low blood pressure readings in the 80s systolic in the neurology office on 12/16 so this was discontinued. BP in the 140s over 80s in the ED. Continue home statin. Continue home baby aspirin. 4. COPD ? Mild, not on home oxygen. Stable on room air at rest in the ED, not in acute exacerbation. Continue home long-acting inhaler. 5. History of esophageal carcinoma s/p radioablation, history of Busch's esophagus and GERD ? Had recent EGD in September at outside hospital that showed Busch's esophagus but no recurrence of esophageal cancer and no other concerning findings. Continue home PPI. 6. Recent history of acute renal failure with hyperkalemia, recent history of hyponatremia secondary to SIADH ? See HPI for further details. In short, patient hospitalized at [facility] from 09/13- for acute renal failure with hyperkalemia and hyponatremia. Nephrology followed and noted FILI was consistent with prerenal etiology, and creatinine improved quickly with IV fluid resuscitation. Peak potassium 5.9, improved medical management. Did have hyponatremia to the mid 120s and studies were consistent with SIADH. Needed strict 1200 mL fluid restriction and 1 dose of tolvaptan for improvement. Creatinine 0.7, potassium 3.9 and sodium 135 on this admission. Monitor daily labs. 7. History of alcohol abuse ? Patient reports no alcohol use since his hospitalization in September. Alcohol level ordered. Will hold off on CIWA protocol at this time. 8. History of tobacco dependence ? Encouraged continued cessation. 9. History of prior cervical spine fusions with chronic neck pain, history of work accident with multiple partial digit conditions on hands and subsequent chronic low back pain ? See HPI for further details. In short, history of C-spine fusions in 2010 and 2011 and patient has seen a chiropractor for chronic neck pain since then. He had a work accident in 2023 requiring multiple partial finger amputations on the right and left hand. He has sequently had chronic low back pain since then. Further management as above. DVT prophylaxis: Lovenox CODE STATUS: Full code, verified Expected disposition: TBD Total clinical time spent by myself addressing the patient's medical issues, reviewing all the data, and collaborating with patient's care team: 86 minutes. Charges/Coding Visit Charges Inpatient E&M: 73099 Init Hosp L3
--- NOTE | 2024-12-17 14:24 | RAD_ITS ---
PROCEDURE: RAD/Chest 1 View (Portable)
--- NOTE | 2024-12-17 14:24 | RAD_ITS ---
PROCEDURE: RAD/Lumbar Spine 2 or 3 Views
[2024-12-17 15:27] LABS: Anion Gap 12 (5-15); BUN 9 mg/dL (4-19); BUN/Creat Ratio 13.0 RATIO (10-20); Calcium,Total 9.5 mg/dL (7.6-11.0); Carbon Dioxide 26.3 mmol/L (21.0-32.0); Chloride 98 mmol/L (98-108); Estimated Creatinine Clearance 94.08 ml/min (50-250); Glucose 100 mg/dL (70-99); Potassium 3.4 mmol/L (3.3-5.1)
--- NOTE | 2024-12-17 16:00 | RAD_ITS ---
PROCEDURE: RAD/Cerv Spine 4 or 5 Views
[2024-12-17] MEDS: Budesonide Respules 0.5 MG/2 ML AMPUL.NEB. INHALATION (19:20)
[2024-12-17] MEDS: Albuterol 2.5 MG/3 ML VIAL.NEB. INHALATION (19:20)
--- NOTE | 2024-12-17 19:50 | CPS ---
mouth rinsed x 1
[2024-12-17] MEDS: MELATONIN 10 MG TABLET PO (21:48)
[2024-12-18 03:45] VITALS: BP 123/79; PULSE 70; RESP 18; TEMP 36.6; O2SAT 97
[2024-12-18 05:17] LABS: Hematocrit 42.8 % (40-54); Hemoglobin 14.1 g/dL (13.0-16.5); Mean Corp Hgb Conc 32.9 g/dL (32-36); Mean Corpuscular Volume 89.4 fL (80-94); Mean Platelet Vol. 9.1 fl (6.2-12.0); Platelet Count 263 K/mm3 (150-450); RBC Distribution Width CV 12.5 % (11.6-14.6); RBC Distribution Width SD 41.1 fl (35.1-43.9); Red Blood Count 4.79 M/mm3 (4.6-6.2); White Blood Count 6.1 K/mm3 (4.4-11.0)
[2024-12-18 07:12] VITALS: O2SAT 95
--- NOTE | 2024-12-18 07:16 | PN.HOSP_ITS ---
Reason for Visit
--- NOTE | 2024-12-18 07:16 | PCM.PN.HOSP ---
Reason for Visit Chief Complaint: Worsening bilateral upper and lower extremity weakness Subjective Subjective Significantly worsening LE and UE weakness over the last 2 weeks. Having falls and more frequently. Plan for surgery was on Saturday but awaiting Ortho input. Objective Data Objective Data Vital Signs: Vital Signs Temp Pulse Resp BP Pulse Ox O2 Del Method 98 F 70 18 123/79 H 95 Room Air 12/18/24 03:45 12/18/24 03:45 12/18/24 03:45 12/18/24 03:45 12/18/24 07:12 12/18/24 07:12 Oxygen Delivery Method Room Air Weight: 83.915 kg Body Mass Index (BMI) 29.0 Intake & Output: Intake and Output for Last 24 Hours 12/16/24 12/17/24 12/18/24 23:59 23:59 23:59 Intake Total 200 / 200 Output Total 800 / 800 300 / 300 Balance -600 / -600 -300 / -300 Lab / Micro Data 12/18/24 04:28 12/17/24 13:35 Labs: Laboratory Results - last 24 hr 12/17/24 13:35: Sodium 136, Potassium 3.4, Chloride 98, Carbon Dioxide 26.3, Anion Gap 12, BUN 9, Creatinine 0.71, Estim Creat Clear Calc 94.08, Est GFR (MDRD) Non-Af 101, BUN/Creatinine Ratio 13.0, Glucose 100 H, Calcium 9.5 12/18/24 04:28: WBC 6.1, RBC 4.79, Hgb 14.1, Hct 42.8, MCV 89.4, MCH 29.4, MCHC 32.9, RDW Std Deviation 41.1, RDW Coeff of Jamie 12.5, Plt Count 263, MPV 9.1 Radiography Diagnostic Testing: Radiology Impression Chest X-Ray 12/17/24 14:24 IMPRESSION: Surgical clips of the right lower neck and partially visualized cervical spine surgery identified. Lungs are hypoinflated, at least moderate right hemidiaphragm elevation is seen, as well. Chronic lung changes are seen, but no focal infiltrate or pulmonary edema is evident. No pleural effusion or pneumothorax is seen. The cardiomediastinal silhouette is remarkable for a partially calcified aorta; no evidence of cardiomegaly. [facility] 12/17/24 14:24 IMPRESSION: Grade 1 anterolisthesis L4 on L5 without definite pars defect seen on these views. Spondylosis and mild dextroscoliosis. Reading Location: [facility] Cervical Spine X-Ray 12/17/24 16:00 IMPRESSION: Anterolisthesis at C3-4 and C6-7. No significant instability of C3-4 on flexion/extension. C6-7 can not be assessed for instability since it is not visualized on the lateral views. No fracture or prevertebral soft tissue swelling is identified. Reading Location: [facility] Physical Exam Const alert, oriented x3, no apparent distress and well nourished; Negative for average body habitus Constitutional Narrative: overweight, upper middle-aged, white male, sitting up in bed watching television eating breakfast, appears comfortable, nontoxic HEENT head/scalp atraumatic and moist oral mucous membranes HEENT Narrative: Mallampati 2-3, no thrush Head and Scalp: normocephalic Resp normal respiratory effort, no retractions, no use of accessory muscles and clear to auscultation bilaterally Auscultation: Negative for rales, rhonchi or wheezes Cardio regular rate, regular rhythm, S1 normal heart sound, S2 normal heart sound, no murmurs, no rub, no gallops and no clicks GI normal to inspection, nondistended, normoactive bowel sounds, soft to palpation and non-tender Extremity no clubbing, cyanosis or edema Extremity Narrative: 2+ pedal and radial pulses, multiple digit missing of hands Neuro No no focal motor deficits Neuro Narrative: Positive clonus, hyperreflexia right greater than left, decreased sensation bilaterally right greater than left, weakness bilaterally right greater than left upper and lower extremities, impaired dexterity Speech: speech normal Psych affect normal Psych Narrative: Very pleasant, interacts appropriately, eye contact is good Assessment & Plan Assessment/Plan (1) Cervical spinal stenosis: (2) Cervical myelopathy: (3) Fusion of spine, cervical region: PLAN: Plan Cervical myelopathy secondary to cervical spine stenosis and neurogenic claudication - Patient with previous fusion at C4-C5 and not instrumental fusion at C5-C6 - Currently has C3-C4 spondylolisthesis with dynamic instability and MRI shows severe stenosis with cord compression and cord edema with myomalacia - Patient does have upper motor neuron changes and his neuroexam - Surgery is tentatively scheduled for Saturday with Dr. Méndez - Continue baclofen the patient still having significant spasms so we will add some as needed Valium - Discontinue other muscle relaxants - continue home tramadol - As needed medication for breakthrough - At this point I am patient is optimized for surgery - PT and OT after surgery per ortho - Ortho following Lumbar spinal stenosis - sx are all four extremities so likely related to cervical spine - Ortho following Essential HTN/HPL - PRN hydralazine - Continue statin - continue asa COPD - mild - Continue LA inhaler - prn nebs H/O esophageal carcinoma/history of Busch's esophagus/GERD - s/p radioablation - Continue outpatient follow-up - last EGD was in September [facility] - Monitor sodium closely may need fluid restriction History of alcohol abuse - No alcohol since September - Monitor clinically Tobacco abuse - Encourage cessation - This will promote healing - If patient needs nicotine patch will make available DVT prophylaxis - continue Lovenox CODE STATUS - Full code Charges/Coding Visit Charges Inpatient E&M: 32825 Subs Hosp L2
[2024-12-18 07:35] VITALS: BP 131/81; PULSE 73; RESP 18; TEMP 36.6; O2SAT 98
--- NOTE | 2024-12-18 12:08 | CASEMGMT ---
MONTY METZ Assessment: Face to Face with pt for initial transition planning/care coordination assessment. MONTY METZ introduced self and role at [facility], pt voices understanding and consents to assessment. Pt is A&O x4 and answers all questions appropriately at this time. Pt sitting up in chair in no distress. Care providers, pharmacy, and demographics verified/updated. Admitting Dx: C-spine stenosis with cord impingement Strata Score: 1 PCP:Gloria Specialists:Samara, pain mgmt; Shmuel vasc; Layla neuro Preferred Pharmacy: [facility] Insurance: [employer] Prescription Benefit: yes LNOK: Ryan Ramos, son; Adrienne Fall, dtr Living Arrangements: Pt lives in a basement apt of his dtr and son in law's home with a walk in entrance. Pt reports being I in ADL/IADLs but states it is a struggle. He states he has fallen a couple of times. Transportation: Pt drives but states he drove the other night and does not plan to again until post op. Pt states he is not able to get his arms and feet to work quickly enough to be safe. DME:grab bar in shower and by toilet, CPAP- not used in 2 yrs, standard walker, FWW, shower chair HHC/SNF: Pt denies hx of HHC and has been to [facility]. Pt scheduled for surgery on Saturday. Pt states should he need rehab, he would like to go to [facility] again and denies need for list of other options. Pt states no further concerns/needs. CM to follow. Advised pt to ask CM if any further questions/concerns/needs arise, voices understanding. Pt Goal: Home or [facility] pending course of hospitalization Plan: TBD pending surgery and course of hospitalization Cortney MILLAN CM
--- NOTE | 2024-12-18 13:18 | CONS.ORTHO ---
HPI Consult Data Date of Consult: 12/18/24 HPI Narrative HPI Narrative: TOYA SOUSA, is a 64 M who presents with weakness in all 4 extremities, declining function with inability to walk, inability to use right hand. I was consulted for MRI findings of severe spinal cord compression. I saw the patient in 322 today. Patient reports that he underwent C4-5 and C5-6 ACDF in 2010 and 2011. The C4-5 is likely the more recent surgery. His symptoms at that time were related to neck pain and burning pain left upper extremity suggestive of radiculopathy. He never had any issues with balance or dexterity issues until 09 October of this year when his progressively started to lose the ability to walk initially requiring a cane followed by a walker and then a wheelchair. He has severe difficulty lifting up his right leg. He underwent amputations of the distal phalanges of multiple fingers in the right hand about a year and a half ago, but still continued to have good dexterity of his right dominant hand. However about a month or 2 ago he started losing the ability to eat with his right hand and has been using his left hand. His left hand is also weak and drops things easily. He saw a neurologist 2 days ago who obtained a stat MRI which showed spinal cord compression and he was then sent to the ER because of progressive loss of function for admission for placement. He has also struggled with low back pain and difficulty walking distances over the last 2 years. Patient's medical history is significant for 2 prior cervical spine fusions in 2010 and 2011 with chronic neck pain, work accident in early 2023 with multiple right hand partial digit amputations and now chronic low back pain, esophageal carcinoma treated with radioablation intervention, prior alcohol and tobacco abuse, hypertension and hyperlipidemia. Patient presented to the [place] vascular surgery office in March of this year per request of his PCP for persistent bilateral lower extremity swelling. Vascular studies were negative but patient reported worsening polyneuropathy. EMG on 07/15 showed peripheral polyneuropathy with motor and sensory nerve involvement with evidence of axonal loss and demyelination. He was then referred to outpatient neurology but did not see them in the office until 12/16. See neurology office note from yesterday for further details. In short, he presented using a walker with severe gait impairment and reported numbness and essentially inability to move his right leg. MRIs were ordered and patient was then sent to the ED as above. Importantly, patient was also hospitalized at [facility] from 09/13-09/18 for acute renal failure with hyperkalemia and hyponatremia. See Dr. Buitrago's H&P note from 09/19 for further details. In short, he presented them with nausea, vomiting, decreased oral intake, weakness and confusion. Was found to have creatinine 4.99, potassium 5.9, sodium 126. Nephrology followed and noted FILI was due to prerenal etiology from dehydration and improved well with IV fluid resuscitation. 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 GI also performed EGD there and found Busch's esophagus but biopsy was negative for metaplasia. He was only in the TCU from 09/19-09/22 and was then able to be discharged home. PENDING SALE TO [facility] Medical History Wears partial dentures Wears glasses Alcohol use History of steroid therapy Arthritis High cholesterol Injury of back Injury of head and neck Gastric reflux Former smoker CPAP (continuous positive airway pressure) dependence Sleep apnea COPD (chronic obstructive pulmonary disease) Asthma Leg cramps History of stress test History of echocardiogram History of irregular heartbeat Hx of esophageal varices Esophageal cancer High cholesterol Hypertension Home Medications ?Medication ?Instructions ?Recorded ?Last Taken ?Type aspirin 81 mg capsule 81 mg PO DAILY heart health 03/07/21 09/18/24 History atorvastatin 20 mg tablet (Lipitor) 20 mg PO DAILY cholesterol 09/18/24 09/17/24 History budesonide-formoterol HFA 160 1 puff inhalation BID PRN ASTHMA 12/16/24 Unknown History mcg-4.5 mcg/actuation aerosol inhaler (Symbicort) cetirizine 10 mg tablet 10 mg PO QDAY allergies 12/16/24 Unknown History omeprazole 20 mg capsule,delayed 20 mg PO QDAY 12/16/24 Unknown History release baclofen 5 mg tablet 5 mg PO TID 12/17/24 Unknown History tramadol 50 mg tablet 50 mg PO BID 12/17/24 Unknown History Allergy/AdvReac Type Severity Reaction Status Date / Time diphenhydramine (From Allergy hyper Verified 12/17/24 12:59 Benadryl) Family History Father Cancer Other Hypertension Surgical History History of total left knee replacement (~03/2021) Hx of tooth extraction Hx of elbow surgery Hx of shoulder surgery Hx of foot surgery Hx of right knee surgery (~2008) History of carpal tunnel release of both wrists H/O cervical spine surgery Social History household members: none Smoking Status: Former smoker alcohol intake: former substance use type: does not use Vital Signs Vital Signs Vital Signs: 12/17/24 13:30 12/17/24 13:45 12/17/24 13:54 Temperature 98 F Temperature Source Pulse Rate 86 82 Pulse Strength Respiratory Rate 17 22 H Respiratory Effort Respiratory Depth Respiratory Pattern Blood Pressure 139/79 H 136/94 H 136/94 H Blood Pressure Mean 96 105 108 Blood Pressure Source Blood Pressure Position Blood Pressure Location Pulse Ox 97 Oxygen Delivery Method 12/17/24 14:00 12/17/24 14:44 12/17/24 15:00 Temperature 97.4 F L Temperature Source Oral Pulse Rate 80 77 Pulse Strength Respiratory Rate 18 18 Respiratory Effort Normal Non-Labored Respiratory Depth Normal Respiratory Pattern Normal Blood Pressure 147/82 H 148/80 H Blood Pressure Mean 101 102 Blood Pressure Source Monitor Blood Pressure Position Semi-Fowlers Blood Pressure Location Left Arm Pulse Ox 95 98 Oxygen Delivery Method Room Air Room Air 12/17/24 16:32 12/17/24 19:20 12/17/24 19:20 Temperature Temperature Source Pulse Rate 88 Pulse Strength Respiratory Rate 16 Respiratory Effort Respiratory Depth Respiratory Pattern Blood Pressure Blood Pressure Mean Blood Pressure Source Blood Pressure Position Blood Pressure Location Pulse Ox 97 96 Oxygen Delivery Method Room Air Room Air 12/17/24 20:06 12/17/24 20:10 12/17/24 22:00 Temperature 97 F L Temperature Source Oral Pulse Rate 97 Pulse Strength Normal (2+) Respiratory Rate 16 Respiratory Effort Normal Non-Labored Respiratory Depth Normal Respiratory Pattern Normal Blood Pressure 145/84 H Blood Pressure Mean 104 Blood Pressure Source Monitor Blood Pressure Position Semi-Fowlers Blood Pressure Location Left Arm Pulse Ox 97 Oxygen Delivery Method Room Air Room Air 12/18/24 03:45 12/18/24 07:12 12/18/24 07:35 Temperature 98 F 98 F Temperature Source Oral Temporal Pulse Rate 70 73 Pulse Strength Respiratory Rate 18 18 Respiratory Effort Respiratory Depth Respiratory Pattern Blood Pressure 123/79 H 131/81 H Blood Pressure Mean 93 97 Blood Pressure Source Monitor Monitor Blood Pressure Position Semi-Fowlers Semi-Fowlers Blood Pressure Location Left Arm Left Arm Pulse Ox 97 95 98 Oxygen Delivery Method Room Air Room Air Room Air 12/18/24 07:35 12/18/24 08:17 Temperature Temperature Source Pulse Rate Pulse Strength Normal (2+) Respiratory Rate Respiratory Effort Normal Non-Labored Respiratory Depth Normal Respiratory Pattern Normal Blood Pressure Blood Pressure Mean Blood Pressure Source Blood Pressure Position Blood Pressure Location Pulse Ox Oxygen Delivery Method Room Air Weight Weight: 185 lb Body Mass Index (BMI) 29.0 Physical Exam Narrative Right side ACDF scar in the neck noticed. Patient mentions that both surgeries were done through the same scar. There is no neck tenderness. Neurologic valuation of upper extremity shows grade 3 finger jig and fixture maker grade 4 - in all of the muscle groups of the right upper extremity, and grade 4 in all left upper extremity muscles. Lower extremity shows 4 - on the right, grade 4 on the left. Bilateral Proctor's is positive. There is significant hyperreflexia lower extremities. Gait could not be tested due to severe imbalance. Lab / Micro Data 12/18/24 04:28 12/17/24 13:35 Labs: Laboratory Results - last 24 hr 12/17/24 13:35: Sodium 136, Potassium 3.4, Chloride 98, Carbon Dioxide 26.3, Anion Gap 12, BUN 9, Creatinine 0.71, Estim Creat Clear Calc 94.08, Est GFR (MDRD) Non-Af 101, BUN/Creatinine Ratio 13.0, Glucose 100 H, Calcium 9.5 12/18/24 04:28: WBC 6.1, RBC 4.79, Hgb 14.1, Hct 42.8, MCV 89.4, MCH 29.4, MCHC 32.9, RDW Std Deviation 41.1, RDW Coeff of Jamie 12.5, Plt Count 263, MPV 9.1 Imaging Radiology Impression Chest X-Ray 12/17/24 14:24 IMPRESSION: Surgical clips of the right lower neck and partially visualized cervical spine surgery identified. Lungs are hypoinflated, at least moderate right hemidiaphragm elevation is seen, as well. Chronic lung changes are seen, but no focal infiltrate or pulmonary edema is evident. No pleural effusion or pneumothorax is seen. The cardiomediastinal silhouette is remarkable for a partially calcified aorta; no evidence of cardiomegaly. Reading Location: [facility] Lumbar Spine X-Ray 12/17/24 14:24 IMPRESSION: Grade 1 anterolisthesis L4 on L5 without definite pars defect seen on these views. Spondylosis and mild dextroscoliosis. [facility] Cervical Sp[facility] X-Ray 12/17/24 16:00 IMPRESSION: Anterolisthesis at C3-4 and C6-7. No significant instability of C3-4 on flexion/extension. C6-7 can not be assessed for instability since it is not visualized on the lateral views. No fracture or prevertebral soft tissue swelling is identified. [facility] Assessment & Plan Assessment/Plan (1) Cervical myelopathy: (2) Fusion of spine, cervical region: (3) Spinal stenosis of lumbar region with neurogenic claudication: PLAN: Plan I reviewed the MRI of cervical spine as well as lumbar spine done previously. I also reviewed x-rays done yesterday. Cervical spine shows C5-6 noninstrumented fusion, C4-5 fusion with plate instrumentation, C3-4 spondylolisthesis with dynamic instability, MRI shows C3-4 severe stenosis with cord compression with cord edema or myelomalacia. Lumbar spine shows multilevel disc degeneration with stenosis. Discussed imaging findings in detail. Although patient does have lumbar stenosis, patient has severely worsened with weakness in all 4 extremities over the last 2 months suggestive of progressive cervical myelopathy being the more priority pathology. Discussed natural history of both cervical myelopathy and lumbar stenosis. Cervical myelopathy has a rapid progressive pattern. I recommend surgery to decompress the spinal cord. Surgery will be C3-4 ACDF with removal of previous hardware. Surgery is tentatively scheduled for Saturday. Appreciate hospitalist for clearance for anesthesia. Discussed all risk benefits and alternatives of the surgery with the patient and his daughter. Her daughter was on speaker phone. The risks include but are not limited to infection, bleeding, hematoma formation, need for further surgery, pseudoarthrosis, DVT, pulm embolism, hardware failure, need for further surgery, spinal cord injury, nerve root injury, paralysis, dysphagia, dysphonia, recurrent laryngeal nerve injury, Jose syndrome, pneumonia, atelectasis, cardiopulmonary event, . Patient understands and agrees to proceed with surgery. Discussed using soft or hard collar preoperatively to reduce cord edema. Continue IV steroids for now. Charges/Coding Visit Charges Inpatient E&M: 83049 Init Hosp L3
[2024-12-18] MEDS: Budesonide Respules 0.5 MG/2 ML AMPUL.NEB. INHALATION (13:26)
[2024-12-18] MEDS: Albuterol 2.5 MG/3 ML VIAL.NEB. INHALATION (13:26)
--- NOTE | 2024-12-18 13:43 | CHAPLAIN ---
Type of Pastoral Visit _x__ Initial Visit ___ Follow-up Visit ___ On-call Visit ___ General Patient Visit ___ Spiritual Assessment ___ Family Conference ___ Bereavement ___ Rapid Response ___ Code Blue ___ Other (describe below) Pastoral Care Referral From _x__ Patient ___ Family ___ Nurse ___ Physician ___ Lever Miller ___ [place] ___ Other (describe below) Sacrament/Intervention _x__ Active listening ___ Anointing ___ Denominational ___ Bereavement ___ Communion ___ Tina exploration ___ _x__ Life review _x__ Prayer ___ Reconciliation ___ Sacrament of Sick _x__ Supportive presence ___ Wedding ___ Other (describe below) Pastoral Comments patient reviews what has been a sudden change in his health; pt was brought in for an 'emergency surgery' but may have to wait until Saturday and be observed first; pt goal is to get back most of his normal life; pt is recently retired and facing many new things; pt has grandchildren and wants to be available for them; pt is welcoming of someone to talk with and for a prayer; otherwise no other worries or concerns
[2024-12-18 13:44] VITALS: PULSE 89; RESP 20
[2024-12-18 14:05] VITALS: BP 138/65; PULSE 89; RESP 18; TEMP 36.7; O2SAT 96
[2024-12-18] MEDS: Senna/Docusate Sodium 1 Tablet PO (14:10)
[2024-12-18] MEDS: Polyethylene Glycol 3350 17 GM PACKET PO (14:10)
[2024-12-18 21:03] VITALS: BP 127/74; PULSE 72; RESP 18; TEMP 36.3; O2SAT 98
[2024-12-18] MEDS: MELATONIN 10 MG TABLET PO (21:05)
[2024-12-19 03:59] VITALS: BP 136/80; PULSE 68; RESP 16; TEMP 36.5; O2SAT 96
--- NOTE | 2024-12-19 07:00 | PN.HOSP_ITS ---
Reason for Visit
--- NOTE | 2024-12-19 07:00 | PCM.PN.HOSP ---
Reason for Visit Chief Complaint: Worsening bilateral upper and lower extremity weakness Subjective Subjective Valium does considerably help his spasms but still having them intermittently for the lesser periods of time however. Awaiting surgery till Saturday he is somewhat disappointed they were able to do it earlier. No specific complaints Objective Data Objective Data Vital Signs: Vital Signs Temp Pulse Resp BP Pulse Ox O2 Del Method 97.7 F L 68 16 136/80 H 96 Room Air 12/19/24 03:59 12/19/24 03:59 12/19/24 03:59 12/19/24 03:59 12/19/24 03:59 12/19/24 03:59 Oxygen Delivery Method Room Air Weight: 83.915 kg Body Mass Index (BMI) 29.0 Intake & Output: Intake and Output for Last 24 Hours 12/17/24 12/18/24 12/19/24 23:59 23:59 23:59 Intake Total 200 / 200 200 / 400 200 / 200 Output Total 800 / 800 1200 / 1200 550 / 550 Balance -600 / -600 -1000 / -800 -350 / -350 Lab / Micro Data 12/18/24 04:28 12/17/24 13:35 Physical Exam Const alert, oriented x3, no apparent distress and well nourished; Negative for average body habitus Constitutional Narrative: overweight, upper middle-aged, white male, sitting up in bed appears comfortable, nontoxic HEENT normocephalic and head/scalp atraumatic Resp normal respiratory effort, normal air movement, no retractions, no use of accessory muscles and clear to auscultation bilaterally Auscultation: Negative for rales, rhonchi or wheezes Cardio regular rate, regular rhythm, S1 normal heart sound, S2 normal heart sound, no murmurs, no rub, no gallops and no clicks GI normal to inspection, nondistended, normoactive bowel sounds, soft to palpation and non-tender Psych mental status grossly normal and affect normal Psych Narrative: Very pleasant, interacts appropriately, eye contact is good Assessment & Plan Assessment/Plan (1) Cervical spinal stenosis: (2) Cervical myelopathy: (3) Fusion of spine, cervical region: PLAN: Plan Cervical myelopathy secondary to cervical spine stenosis and neurogenic claudication - Patient with previous fusion at C4-C5 and not instrumental fusion at C5-C6 - Currently has C3-C4 spondylolisthesis with dynamic instability and MRI shows severe stenosis with cord compression and cord edema with myomalacia - Patient does have upper motor neuron changes and his neuroexam - Continue baclofen - Continue added Valium as it seems to be significantly helping him - continue home tramadol - As needed medication for breakthrough - At this point I am patient is optimized for surgery - PT and OT after surgery per ortho - Ortho following and plans for surgery on Saturday Lumbar spinal stenosis - sx are all four extremities so likely related to cervical spine - Ortho following Essential HTN/HPL - PRN hydralazine - Continue statin - continue asa COPD - mild - Continue LA inhaler - prn nebs H/O esophageal carcinoma/history of Busch's esophagus/GERD - s/p radioablation - Continue outpatient follow-up - last EGD was in September SIADH - Monitor sodium closely may need fluid restriction - BMP in a.m. in case intervention is needed for hyponatremia preoperatively History of alcohol abuse - No alcohol since September - Monitor clinically Tobacco abuse - Encourage cessation - This will promote healing - If patient needs nicotine patch will make available DVT prophylaxis - continue Lovenox CODE STATUS - Full code Charges/Coding Visit Charges Inpatient E&M: 09998 Subs Hosp L1
[2024-12-19 07:35] VITALS: BP 135/80; PULSE 71; RESP 17; TEMP 36.4; O2SAT 96
[2024-12-19] MEDS: Polyethylene Glycol 3350 17 GM PACKET PO (09:47)
[2024-12-19] MEDS: Senna/Docusate Sodium 1 Tablet PO (09:47)
[2024-12-19] MEDS: Albuterol 2.5 MG/3 ML VIAL.NEB. INHALATION ×2 (13:09→19:20)
[2024-12-19 13:10] VITALS: PULSE 86; RESP 16
[2024-12-19 15:00] VITALS: BP 133/80; PULSE 94; RESP 18; TEMP 36.6; O2SAT 96
[2024-12-19 19:20] VITALS: PULSE 73; RESP 20; O2SAT 95
[2024-12-19] MEDS: Budesonide Respules 0.5 MG/2 ML AMPUL.NEB. INHALATION (19:20)
[2024-12-19 22:00] VITALS: BP 131/78; PULSE 74; RESP 18; TEMP 37.1; O2SAT 96
[2024-12-19] MEDS: MELATONIN 10 MG TABLET PO (22:06)
[2024-12-20 02:19] VITALS: BP 139/75; PULSE 71; RESP 16; TEMP 36.4; O2SAT 98
[2024-12-20 04:27] LABS: Anion Gap 10 (5-15); BUN 13 mg/dL (4-19); BUN/Creat Ratio 18.9 RATIO (10-20); Calcium,Total 9.4 mg/dL (7.6-11.0); Carbon Dioxide 24.6 mmol/L (21.0-32.0); Chloride 101 mmol/L (98-108); Estimated Creatinine Clearance 94.08 ml/min (50-250); Glucose 94 mg/dL (70-99); Potassium 4.2 mmol/L (3.3-5.1)
--- NOTE | 2024-12-20 07:23 | PN.HOSP_ITS ---
Reason for Visit
--- NOTE | 2024-12-20 07:23 | PCM.PN.HOSP ---
Reason for Visit Chief Complaint: Worsening bilateral upper and lower extremity weakness Subjective Subjective Patient states the spasms are still better but present and when he gets them he has significant pain. Ultram is not quite cutting it. Objective Data Objective Data Vital Signs: Vital Signs Temp Pulse Resp BP Pulse Ox O2 Del Method 97.5 F L 71 16 139/75 H 98 Room Air 12/20/24 02:19 12/20/24 02:19 12/20/24 02:19 12/20/24 02:19 12/20/24 02:19 12/20/24 02:19 Oxygen Delivery Method Room Air Weight: 83.915 kg Body Mass Index (BMI) 29.0 Intake & Output: Intake and Output for Last 24 Hours 12/18/24 12/19/24 12/20/24 23:59 23:59 23:59 Intake Total 200 / 400 450 / 1250 800 / 800 Output Total 1200 / 1200 550 / 1100 1150 / 1150 Balance -1000 / -800 -100 / 150 -350 / -350 Lab / Micro Data 12/18/24 04:28 12/20/24 03:35 Labs: Laboratory Results - last 24 hr 12/20/24 03:35: Sodium 136, Potassium 4.2, Chloride 101, Carbon Dioxide 24.6, Anion Gap 10, BUN 13, Creatinine 0.67 L, Estim Creat Clear Calc 94.08, Est GFR (MDRD) Non-Af 103, BUN/Creatinine Ratio 18.9, Glucose 94, Calcium 9.4 Physical Exam Const alert, oriented x3, no apparent distress and well nourished; Negative for average body habitus Constitutional Narrative: overweight, upper middle-aged, white male, sitting up in bed appears comfortable at the time, watching television, nontoxic HEENT normocephalic, head/scalp atraumatic and hearing grossly normal bilaterally Extremity Extremity Narrative: I am also taking Erich to the football game the next day Skin no rashes or lesions noted Neuro No no focal motor deficits Neuro Narrative: Positive clonus, hyperreflexia right greater than left, decreased sensation bilaterally right greater than left, weakness bilaterally right greater than left upper and lower extremities, impaired dexterity Speech: speech normal Psych mental status grossly normal and affect normal Psych Narrative: Very pleasant, interacts appropriately, eye contact is good Assessment & Plan Assessment/Plan (1) Cervical spinal stenosis: (2) Cervical myelopathy: (3) Fusion of spine, cervical region: PLAN: Plan Cervical myelopathy secondary to cervical spine stenosis and neurogenic claudication - Patient with previous fusion at C4-C5 and not instrumental fusion at C5-C6 - Currently has C3-C4 spondylolisthesis with dynamic instability and MRI shows severe stenosis with cord compression and cord edema with myomalacia - Patient does have upper motor neuron changes and his neuroexam - Continue baclofen - Continue Valium - continue home tramadol but increase to 3 times daily - Add as needed Dilaudid for breakthrough - Patient is medically optimized for surgery - PT and OT after surgery per ortho - Ortho following and plans for surgery on Saturday Lumbar spinal stenosis - sx are all four extremities so likely related to cervical spine - Ortho following Essential HTN/HPL - PRN hydralazine - Continue statin - continue asa COPD - mild - Continue LA inhaler - prn nebs H/O esophageal carcinoma/history of Busch's esophagus/GERD - s/p radioablation - Continue outpatient follow-up - last EGD was in September [facility] - Monitor sodium closely may need fluid restriction - Sodium is within normal limits History of alcohol abuse - No alcohol since September - Monitor clinically Tobacco abuse - Encourage cessation - This will promote healing - If patient needs nicotine patch will make available DVT prophylaxis - continue Lovenox CODE STATUS - Full code Charges/Coding Visit Charges Inpatient E&M: 45387 Subs Hosp L1
[2024-12-20] MEDS: Albuterol 2.5 MG/3 ML VIAL.NEB. INHALATION ×2 (07:33→19:58)
[2024-12-20] MEDS: Budesonide Respules 0.5 MG/2 ML AMPUL.NEB. INHALATION ×2 (07:33→19:58)
[2024-12-20 08:00] VITALS: BP 144/71; PULSE 71; RESP 18; TEMP 36.3; O2SAT 96
[2024-12-20 08:11] VITALS: PULSE 75; RESP 16
[2024-12-20] MEDS: Senna/Docusate Sodium 1 Tablet PO (10:16)
[2024-12-20] MEDS: Polyethylene Glycol 3350 17 GM PACKET PO (10:16)
[2024-12-20] MEDS: HYDROmorphone Inj 0.2 MG/ML SYRINGE IV ×4 (10:16→21:18)
[2024-12-20] MEDS: 0.9% Saline Lock 10 ML Syringe IV ×4 (10:19→21:18)
[2024-12-20 14:09] VITALS: BP 130/91; PULSE 86; RESP 18; TEMP 36.7; O2SAT 98
[2024-12-20 19:58] VITALS: PULSE 86; RESP 18
[2024-12-20 21:11] VITALS: BP 131/70; PULSE 79; RESP 16; TEMP 36.3; O2SAT 99
[2024-12-20] MEDS: MELATONIN 10 MG TABLET PO (22:59)
[2024-12-21] VITALS (25 sets, daily range): BP systolic 133–187; BP diastolic 74–106; PULSE 66–103; RESP 16–18; TEMP 36.2–37.1; O2SAT 94–99; BMI 29.0
[2024-12-21] MEDS: HYDROmorphone Inj 0.2 MG/ML SYRINGE IV ×3 (00:27→06:48)
[2024-12-21] MEDS: 0.9% Saline Lock 10 ML Syringe IV ×2 (00:28→06:48)
[2024-12-21 05:54] LABS: Hematocrit 44.8 % (40-54); Hemoglobin 14.6 g/dL (13.0-16.5); Mean Corp Hgb Conc 32.6 g/dL (32-36); Mean Corpuscular Volume 89.8 fL (80-94); Mean Platelet Vol. 8.9 fl (6.2-12.0); Platelet Count 218 K/mm3 (150-450); RBC Distribution Width CV 12.8 % (11.6-14.6); RBC Distribution Width SD 42.0 fl (35.1-43.9); Red Blood Count 4.99 M/mm3 (4.6-6.2); White Blood Count 5.4 K/mm3 (4.4-11.0)
--- NOTE | 2024-12-21 06:00 | EKG12_ITS ---
Test Reason : AM EKG
[2024-12-21 06:14] LABS: Anion Gap 8 (5-15); BUN 12 mg/dL (4-19); BUN/Creat Ratio 17.5 RATIO (10-20); Calcium,Total 9.2 mg/dL (7.6-11.0); Carbon Dioxide 27.4 mmol/L (21.0-32.0); Chloride 100 mmol/L (98-108); Estimated Creatinine Clearance 94.08 ml/min (50-250); Glucose 111 mg/dL (70-99); Potassium 4.3 mmol/L (3.3-5.1)
[2024-12-21] MEDS: Budesonide Respules 0.5 MG/2 ML AMPUL.NEB. INHALATION (06:58)
[2024-12-21] MEDS: Albuterol 2.5 MG/3 ML VIAL.NEB. INHALATION (06:58)
--- NOTE | 2024-12-21 08:46 | PN.HOSP_ITS ---
Reason for Visit
--- NOTE | 2024-12-21 08:46 | PCM.PN.HOSP ---
Reason for Visit Chief Complaint: Worsening bilateral upper and lower extremity weakness Subjective Subjective Patient is a 64-year-old gentleman admitted with progressive really worsening myelopathy from cervical spine compression. Consult placed to spine surgery Dr. Manley with plans for patient to undergo surgical intervention this a.m. Objective Data Objective Data Vital Signs: Vital Signs Temp Pulse Resp BP Pulse Ox O2 Del Method 98.5 F 66 16 136/74 H 98 Room Air 12/21/24 08:23 12/21/24 08:23 12/21/24 08:23 12/21/24 08:23 12/21/24 08:23 12/21/24 08:23 Oxygen Delivery Method Room Air Weight: 83.915 kg Body Mass Index (BMI) 29.0 Intake & Output: Intake and Output for Last 24 Hours 12/19/24 12/20/24 12/21/24 23:59 23:59 23:59 Intake Total 450 / 1250 1700 / 1700 50 / 50 Output Total 550 / 1100 1150 / 1150 450 / 450 Balance -100 / 150 550 / 550 -400 / -400 Lab / Micro Data 12/21/24 05:43 12/21/24 05:43 Labs: Laboratory Results - last 24 hr 12/21/24 05:43: WBC 5.4, RBC 4.99, Hgb 14.6, Hct 44.8, MCV 89.8, MCH 29.3, MCHC 32.6, RDW Std Deviation 42.0, RDW Coeff of Jamie 12.8, Plt Count 218, MPV 8.9, Sodium 135, Potassium 4.3, Chloride 100, Carbon Dioxide 27.4, Anion Gap 8, BUN 12, Creatinine 0.67 L, Estim Creat Clear Calc 94.08, Est GFR (MDRD) Non-Af 103, BUN/Creatinine Ratio 17.5, Glucose 111 H, Calcium 9.2 Physical Exam Narrative GENERAL: cooperative HEENT: Atraumatic; normocephalic EYES; Anicteric, Normal Conjunctiva NECK; supple, normal thyroid, RESPIRATORY: Diminished to auscultation CARDIOVASCULAR: Regular S1 S2, GI: soft, normoactive bowel sounds, : No Renal angle tenderness; EXTREMITIES: No edema, no clubbing, MUSCULOSKELETAL: no muscle wasting NEURO: Awake; upper extremity weakness right greater than left SKIN: No Rash PSYCH; Flat affect Assessment & Plan Assessment/Plan (1) Cervical spinal stenosis: (2) Cervical myelopathy: (3) Fusion of spine, cervical region: PLAN: Plan Patient is a 64-year-old gentleman admitted with progressive really worsening myelopathy from cervical spine compression. Consult placed to spine surgery Dr. Manley with plans for patient to undergo surgical intervention this a.m. 1. Cervical myelopathy secondary to cervical spine stenosis and neurogenic claudication - Patient with previous fusion at C4-C5 and not instrumental fusion at C5-C6. MRI obtained 12/16/2024 as outpatient demonstrates . Mild multilevel spondylotic changes and postoperative changes of C4-5 ACDF. Degenerative grade 1 anterolisthesis of C3 on C4, and C6 on C7. Advanced spinal canal stenosis at C3-4, with cord impingement and mild cord signal abnormality/edema at this level. Advanced neural foraminal narrowing at C3-4, and moderate at C6-7. Admitted to regular nursing floor for pain management with consult placed to spine surgery with plans for patient to undergo surgical intervention on 12/21/2024 2. Dyslipidemia ?Patient is on statin therapy, continued at home dose 3. GERD with Busch's esophagus ? On PPI 4. COPD ? Currently not in exacerbation Rosamaria treatment as needed 5. H/O esophageal carcinoma - s/p radioablation. Patient remains in remission 6. DVT prophylaxis ? Subcu Lovenox Time spent in the patient's overall evaluation,decision-making process, review of diagnostic data, adjustment of management, discussion with other providers, nursing nursing and ancillary staff involved in patient's care documentation,40 Minutes Charges/Coding Visit Charges Inpatient E&M: 56621 Subs Hosp L2
--- NOTE | 2024-12-21 09:40 | PCM.PRE.AN2 ---
ASA Classification* ASA Classification ASA Classification: 2 Assessment & Plan Anesthesia* Anesthesia Assessment Anesthesia Assessment: Discussed sedation and/or anesthesia options, risks, benefits, and alternatives with patient/parents/legal guardian/POA. Questions invited. The patient/parents/legal guardian/POA seems to understand and agrees to proceed with anesthesia plan. Reviewed the physical assessment, medical history, allergy history and patient home medications list prior to surgery/procedure/anesthetic and documented any changes. Performed airway and anesthesia risk assessments. Anesthesia Type Anesthesia Type: General Anesthesia Focused Assessment* Temperature: 97.9 F Pulse Rate: 69 Blood Pressure: 139/80 Respiratory Rate: 18 Pulse Ox: 98 Airway Assessment Mouth opens: >3 cm Mallampati Score: II Labs Anesthesia Preop lab: CBC WBC, (4.4-11.0) 5.4 K/mm3 Today, 05:43 RBC, (4.6-6.2) 4.99 M/mm3 Today, 05:43 Hgb, (13.0-16.5) 14.6 g/dL Today, 05:43 Hct, (40-54) 44.8 % Today, 05:43 Plt Count, (150-450) 218 K/mm3 Today, 05:43 CHEMISTRY Potassium, (3.3-5.1) 4.3 mmol/L Today, 05:43 Sodium, (133-145) 135 mmol/L Today, 05:43 Magnesium, (1.5-2.2) 1.5 mg/dL 12/16/24, 15:39 BUN, (4-19) 12 mg/dL Today, 05:43 Creatinine, (0.70-1.20) 0.67 mg/dL L Today, 05:43 Glucose, (70-99) 111 mg/dL H Today, 05:43 POC Glucose, (70-110) 91 mg/dL 03/21/21, 06:20 TSH, (0.300-4.200) 0.516 uIU/mL 12/16/24, 15:39 COAG PT, (11.7-14.9) 13.7 SECONDS 12/16/24, 15:39 Pre-Assessment Diagnosis/Proposed Procedure Planned Operative Procedure(s): Anterior Cervical Fusion with removal hardware Anesthesia History Anesthesia History - secondary connector armature: Anesthesia History - secondary connector armature Hx Hospitalization No 05/15/21 14:42 Any Problems With Anesthesia No 12/17/24 14:48 Cholinesterase deficiency No 12/17/24 14:48 You/Your Family Experience No 12/17/24 14:48 fever (hyperthermia) with Relationship Recent Exposure to Contagious No 12/17/24 14:48 Disease Does patient have nerve No 12/17/24 14:48 stimulator Patient instructed to have device shut off --Does patient have Pacemaker No 12/21/24 09:28 or ICD? When Was Last Pacemaker Check QUESTION #4 FULL TEXT: You/Your Family Experience fever (hyperthermia) with Anesthesia Last Oral Intake Last Oral intake: Last Oral Intake NPO since 00:00 12/21/24 09:28 Meds taken in AM with sips of Yes 12/21/24 09:28 water? Meds patient instructed to take am of surgery PONV PONV - secondary connector armature: PONV - secondary connector armature Female HX of Motion Sickness HX of N/V After Surgery Non-Smoker Duration of Surgery greater than 60 minutes Number of Risk Factors PONV Score Height & Weight Height & Weight: Anesthesia: Height & Weight Height 5 ft 7 in 12/21/24 09:28 Weight: 83.915 kg 12/21/24 09:28 Body Mass Index (BMI) 29.0 12/21/24 09:28 Respiratory Assessment Respiratory Assessment - secondary connector armature: Respiratory Tract Infection Hx - secondary connector armature Hx Respiratory Tract Infection No 12/17/24 14:48 STOP Sleep Apnea STOP Sleep Apnea - secondary connector armature: STOP Sleep Apnea - secondary connector armature Hx Hypertension Yes 12/18/24 12:40 Hx Sleep Apnea Yes 12/17/24 14:44 CPAP Yes: doesnt wear, ordered 12/17/24 14:44 BIPAP No 12/17/24 14:44 Do you snore loudly (louder than talking or can be heard Do you often feel tired/ fatigued/ sleepy during daytime? Has anyone observed you stop breathing during sleep? STOP Results Positive 12/17/24 14:44 QUESTION #5 FULL TEXT : Do you snore loudly (louder than talking or can be heard through closed doors)? 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 Specify any problems Hx of Preganancy in last 3 N/A 12/17/24 14:44 Months Nurse Filling Out Transfusion [id number] 12/17/24 14:44 & Questions: Date: 12/17/24 12/17/24 14:44 Time: 14:50 12/17/24 14:44 Patient unable to answer at this time (ie. confused, unrespo /Reproduction History /Reproductive History - secondary connector armature: /Reproductive Hx- secondary connector armature Hx Now Gestational Age (in weeks): EDC: Hx Hx Para Hx Section SAB Active Medications Active Medications: Current Medications Generic Name Dose Route Start Last Admin Trade Name Freq PRN Reason Stop Dose Admin Acetaminophen 650 mg 12/17/24 14:45 12/21/24 05:05 Acetaminophen 325 Mg Tablet PO 650 mg Q6H PRN PRN Administration Pain 1-10 Or Fever>100.7 Albuterol Sulfate 2.5 mg 12/17/24 14:50 12/21/24 06:58 Albuterol 2.5 Mg/3 Ml Vial.Neb. INHALATION 2.5 mg Q6HWA.RT AZEEM Administration Aspirin 81 mg 12/18/24 08:00 12/21/24 09:03 Aspirin 81 Mg Tab.Chew PO Not Given BREAKFAST AZEEM Atorvastatin Calcium 20 mg 12/18/24 10:00 12/20/24 08:03 Atorvastatin Calcium 20 Mg Tablet PO 20 mg DAILY AZEEM Administration Baclofen 5 mg 12/17/24 22:00 12/21/24 05:00 Baclofen 10 Mg Tablet PO 5 mg TID AZEEM Administration Budesonide 0.5 mg 12/17/24 14:50 12/21/24 06:58 Budesonide Respules 0.5 Mg/2 Ml Ampul.Neb. INHALATION 0.5 mg Q12H.RT AZEEM Administration Diazepam 2 mg 12/18/24 09:32 12/21/24 05:03 Diazepam 2 Mg Tablet PO 2 mg TID PRN PRN Administration muscle spasms Enoxaparin Sodium 40 mg 12/18/24 10:00 12/20/24 08:03 Enoxaparin 40 Mg/0.4 Ml Syringe SC 40 mg DAILY AZEEM Administration Hydromorphone HCl 0.2 mg 12/20/24 09:08 12/21/24 06:48 Hydromorphone Inj 0.2 Mg/Ml Syringe IV 0.2 mg Q3H PRN PRN Administration Pain Score 4-10 or Pre PT/OT Sodium Chloride 250 mls @ 15 mls/hr 12/17/24 14:53 IV .[id number] PRN Saline Flush Sodium Chloride 250 mls @ 15 mls/hr 12/17/24 14:53 IV .[id number] PRN Additional IVPB Infusion Loratadine 10 mg 12/18/24 10:00 12/20/24 08:03 Loratadine 10 Mg Tablet PO 10 mg DAILY AZEEM Administration Melatonin 10 mg 12/17/24 14:45 12/20/24 22:59 Melatonin 10 Mg Tablet PO 10 mg QHS PRN PRN Administration INSOMNIA Ondansetron HCl 4 mg 12/17/24 14:45 Ondansetron 4 Mg/2 Ml Vial IV Q8H PRN PRN NAUSEA/VOMITING Pantoprazole Sodium 20 mg 12/18/24 10:00 12/20/24 08:04 Pantoprazole Sodium 20 Mg Tablet PO 20 mg DAILY AZEEM Administration Polyethylene Glycol 17 gm 12/18/24 13:05 12/20/24 10:16 Polyethylene Glycol 3350 17 Gm Packet PO 17 gm DAILY AZEEM Administration Senna/Docusate Sodium 1 tablet 12/18/24 13:10 12/20/24 10:16 Senna/Docusate Sodium 1 Tablet PO 1 tablet DAILY AZEEM Administration Sodium Chloride 10 - 40 ml 12/17/24 14:53 12/21/24 06:48 0.9% Saline Lock 10 Ml Syringe IV 10 ml UD PRN Administration SALINE FLUSH Tramadol HCl 50 mg 12/20/24 14:00 12/21/24 05:03 Tramadol 50 Mg Tablet PO 50 mg TID AZEEM Administration PFSH Medical History Wears partial dentures Wears glasses Alcohol use History of steroid therapy Arthritis High cholesterol Injury of back Injury of head and neck Gastric reflux Former smoker CPAP (continuous positive airway pressure) dependence Sleep apnea COPD (chronic obstructive pulmonary disease) Asthma Leg cramps History of stress test History of echocardiogram History of irregular heartbeat Hx of esophageal varices Esophageal cancer High cholesterol Hypertension Home Medications ?Medication ?Instructions ?Recorded ?Last Taken ?Type aspirin 81 mg capsule 81 mg PO DAILY heart health 03/07/21 09/18/24 History atorvastatin 20 mg tablet (Lipitor) 20 mg PO DAILY cholesterol 09/18/24 09/17/24 History budesonide-formoterol HFA 160 1 puff inhalation BID PRN ASTHMA 12/16/24 Unknown History mcg-4.5 mcg/actuation aerosol inhaler (Symbicort) cetirizine 10 mg tablet 10 mg PO QDAY allergies 12/16/24 Unknown History omeprazole 20 mg capsule,delayed 20 mg PO QDAY 12/16/24 Unknown History release baclofen 5 mg tablet 5 mg PO TID 12/17/24 Unknown History tramadol 50 mg tablet 50 mg PO BID 12/17/24 Unknown History Allergy/AdvReac Type Severity Reaction Status Date / Time diphenhydramine (From Allergy hyper Verified 12/17/24 12:59 Benadryl) Family History Father Cancer Other Hypertension Surgical History History of total left knee replacement (~03/2021) Hx of tooth extraction Hx of elbow surgery Hx of shoulder surgery Hx of foot surgery Hx of right knee surgery (~2008) History of carpal tunnel release of both wrists H/O cervical spine surgery Social History household members: none Smoking Status: Former smoker alcohol intake: former substance use type: does not use Review of Systems (Anesthesia) ROS Narrative System reviewed and no additional complaints, except as documented.
--- NOTE | 2024-12-21 10:10 | HP.PCM_ITS ---
History and Physical
--- NOTE | 2024-12-21 10:10 | PCM.HP.BLA ---
History and Physical Please see my consultation note from Saturday for detailed history and physical. Saw the patient in preop this morning. Patient developed a mild rash under the jawline from the soft collar over the weekend and then he removed it. The rash is not seeping and is dry and is away from the planned incision area. Neurologic exam is overall unchanged, but patient does have worsening of weakness and numbness in the left upper extremity. He has been unable to eat with his light right hand which is his dominant hand at least for more than a month. He had been trying to eat with the left hand but is barely able to make it to the left hand now over the weekend. 4 - strength in all 4 extremities. Hyperreflexia as noted before. Discussed again the surgery and the risks involved, patient agrees to proceed.
--- NOTE | 2024-12-21 10:15 | RAD_ITS ---
PROCEDURE: RAD/Cerv Spine 2 or 3 Views
[2024-12-21] MEDS: Lactated Ringers 1,000 ML 1000 ML IV (10:32)
[2024-12-21] MEDS: Lidocaine 1% (5 ml sdv) 5 ML Vial IV (10:40)
[2024-12-21] MEDS: Cefazolin 1 GM/5 ML Vial 2 GM IV (10:45)
[2024-12-21] MEDS: PROPOFOL 84.96 MG IV (10:50)
[2024-12-21] MEDS: REMIFENTANIL HCL 1 MG VIAL 0.75 MG IV (10:50)
[2024-12-21] MEDS: TRANEXAMIC ACID 1,000 MG/10 ML ML 2000 MG IV (12:35)
[2024-12-21] MEDS: fentaNYL 100 MCG/2 ML Ampul IV (12:42)
--- NOTE | 2024-12-21 13:18 | OP.PCM_ITS ---
Procedures Musculoskeletal
--- NOTE | 2024-12-21 13:18 | PCM.OPRPT ---
Procedures Musculoskeletal 20xxx-29xxx: Other Procedure See Report Operative Report (Standard) Operative Information Date of Procedure: 12/21/24 Pre-Operative Diagnosis: C3-4 spondylolisthesis, severe stenosis with myelopathy, cord compression, cord signal changes, prior C4-6 fusion Post-Operative Diagnosis: Same Surgery/Procedure Performed: C3-4 ACDF, removal of previous C4-5 anterior instrumentation, exploration of fusion mattress spring encaser: Yes Feed Grinder: Felicia Christiansen Tasks completed by magistrate assistant: Closing, Removing tissue, Hemostasis: Electrocautery and Retracting Type of Anesthesia: General RN Documented Start/Stop Times: Operation Date: 12/21/24 11:15 Case Time Into Pre-Op 12/21/24 09:40 Anesthesia Start 12/21/24 10:32 Into Room 12/21/24 10:32 Procedure Start 12/21/24 11:10 Procedure End 12/21/24 12:56 Anesthesia End 12/21/24 13:16 Out of Room 12/21/24 13:16 Procedure Start Time: 11:10 Procedure Stop Time: 12:56 Select all DRAINS/GRAFTS/IMPLANTS that apply: Drains Drain details: Marlena , Graft Graft details: Structural allograft corticocancellous strut and Implanted device Implanted device details: Medtronic Hopelawn Elite plate instrumentation Estimated Blood Loss: 40 cc Specimen collected: No Description of surgery: Preoperative diagnosis: C3-4 spondylolisthesis, disc degeneration with severe stenosis, severe progressive myelopathy, cord compression with cord signal changes, prior C4-6 anterior fusion with C4-5 anterior instrumentation Postoperative diagnosis: Same Name of procedure: C3-4 anterior cervical discectomy and fusion with plate instrumentation, removal of prior C4-5 anterior instrumentation, exploration of fusion. - Anterior cervical fusion C3-4, CPT code 12043 - Anterior plate instrumentation C3-4, CPT code 37094/59 - Removal of C4-5 anterior instrumentation, CPT code 65882. - Exploration of fusion at C4-5, CPT code 66337. - C3-4 structural allograft bone with DBX, CPT code 29165 Attending surgeon: Herminio Méndez M.D. Anesthesia: Gen. endotracheal Estimated blood loss: 40 mL Complications: None Instrumentation used: Medtronic Hopelawn Elite plate, LASR corticocancellous block Indications: The patient is a pleasant 64-year-old gentleman who presented with rapidly progressive weakness in all 4 extremities, inability to walk, inability to use right hand for eating progressively worsening over 1 to 2 months. Imaging showed prior C4-6 anterior fusion with C4-5 anterior instrumentation, C3-4 spondylolisthesis, C3-4 severe stenosis with cord compression with cord signal changes. In order to halt the progression of myelopathy, the patient requested surgical treatment. All risks and benefits of the procedure were explained to the patient. The risks include but are not limited to infection, bleeding, injury to nerves and vessels, vertebral artery injury, spinal cord injury, paralysis, vocal cord paralysis, injury to esophagus, pseudoarthrosis, need for further procedures, adjacent segment degeneration. Procedure: The patient was identified in the preoperative suite using unique patient identifiers. Skin was marked consent was taken and all questions were answered. The patient was then brought back to the operative room and a timeout was performed. General endotracheal anesthesia was given. Intraoperative neuro monitoring leads were applied. The patient was carefully positioned supine on a regular OR table. A lateral view with a C-arm was done to identify the level and to define the incision. The anterior neck was then prepped and draped in the usual fashion. A final timeout was then performed. A transverse skin incision was taken to the left of midline. Subcutaneous tissue was then divided with Bovie. Platysma was identified and cut along the incision with scissors. The fascial interval between the sternocleidomastoid and the larynx was developed. Omohyoid was identified and retracted. The esophagus with the larynx was retracted medially to reach the prevertebral fascia. The previous plate instrumentation was exposed and levels were confirmed. Longus coli muscle was elevated on both sides at and above and below C3-5 discs. Self-retaining retractors were then placed. Bovie was utilized to detach prevertebral soft tissue over the plate, pituitaries were used to remove any soft tissue over the screw heads. The plate was identified to be a Synthes Vectra plate, and appropriate instrumentation was utilized to remove all screws. A Singh was then used to remove the plate and detach it from the anterior surface of the bodies and removed. Underlying anterior fusion at C4-5 was explored and was found to be adequate. A long handle knife was then used to perform annulotomy at C3-4. Disc fragments were removed with the pituitary. [place] pins were placed in C3 and C4 for disc distraction. Curettes and bur was utilized to remove cartilage from the endplates. Discectomy was performed laterally up to the uncovertebral joints. Posterior osteophytes were thinned down with the bur and adequate decompression in the central and foraminal areas were performed and PLL was thinned out. Once the disc space was prepared, trials of various sizes were utilized. Thorough irrigation was given. 7 mm LASR cortical cancellous allograft bone large footprint was then fashioned in such a way that concavities were burred out inferiorly and superiorly and half cc of DBX (demineralized bone matrix) was squeezed into the cancellous portion. The graft was then inserted into the C3-4 disc space. The graft was found to be in good apposition with good pullout strength. A 25 mm Medtronic Hopelawn Elite plate was then fixed to C3-4 with 17 mm screws with attempts to keep the lower C4 screws inferior to the prior screw holes to get better purchase. A lateral x-ray was then taken to check the length of the screws. Both AP and lateral x-rays showed good positioning of plate and screws. The locking mechanism over the screw heads was then turned. Thorough irrigation was again given. Hemostasis was achieved. A Marlena drain was then inserted. Closure was done with 3-0 Vicryl for the platysma and subcutaneous tissue layers and 4-0 Monocryl for the skin. Closure was done around the drain. Steri-Strips were applied and dressing was done with 4 x 4 gauze and Tegaderm. A cervical collar was then applied. The patient was then woken up from anesthesia extubated and taken to PACU in stable condition. From here, the patient will be transitioned to the floor. Intraoperative neuro monitoring was performed throughout this procedure. Motor evoked potentials were run periodically. All potentials remained at baseline throughout the procedure. I was present for the entire surgery and performed the surgery myself. Power Chisel Operator Felicia Christiansen PA-C. My physician logistics assistant was a vital part of this case. They were important in appropriate retraction during the case, and protection of soft tissues during the procedure. Their intimate knowledge of the case and my steps aided in safe and expedient completion of the procedure as well as appropriate position of the patient during the surgery. They were also vital in assisting with closure under my direct supervision. Surgical Findings: See operative note Complications Complications: No
--- NOTE | 2024-12-21 13:22 | POSTOP.ANE_ITS ---
Anesthesia: Postop Eval I
--- NOTE | 2024-12-21 13:22 | PCM.POST.ANE ---
Anesthesia: Postop Eval I Current Vital Signs Temperature: 97.2 F Pulse Rate: 97 Blood Pressure: 170/84 Respiratory Rate: 18 Pulse Ox: 95 Assessment Airway patent: Yes Spontaneous unlabored respirations: Yes nausea: No Vomiting: No Anesthesia Complication: No Fluid Hydration Crystalloid volume administer (ml): 1,000 Total IV fluid infused: 1,000 Progress Note Anesthesia document: Postop Eval 1 completed: Yes
--- NOTE | 2024-12-21 14:15 | POSTOPAN2_ITS ---
Anesthesia Postop Eval I Sum
--- NOTE | 2024-12-21 14:15 | PCM.POSTANE2 ---
Anesthesia Postop Eval I Sum Postop Eval Completion status Anesthesia document: Postop Eval 1 completed: Yes Anesthesia Postop Eval I Summary Anesthesia Postop Eval I Summary: Anesthesia Postop Eval I: Assessment Summary Airway patent Yes 12/21/24 13:22 CONSTRUCTION [email or web address] Spontaneous unlabored Yes 12/21/24 13:22 CONSTRUCTION [email or web address].CSIR respirations Mental status nausea No 12/21/24 13:22 CONSTRUCTION [email or web address].CSIR Vomiting No 12/21/24 13:22 CONSTRUCTION [email or web address].CSIR Anesthesia Postop Eval I: Fluid Summary Crystalloid volume administer 1,000 12/21/24 13:22 CONSTRUCTION [email or web address].CSIR (ml) Colloids volume administered ( ml) Blood Product volume administered (ml) Total IV fluid infused 1,000 12/21/24 13:22 CONSTRUCTION [email or web address].CSIR Anesthesia Postop Eval I: Summary Notes Anesthesia Complication No 12/21/24 13:22 CONSTRUCTION [email or web address].CSIR Anesthesia Complication Comment: Post-operative progress note Anesthesia: Postop Eval II Evaluation Mental status: Awake Pain Level: 2 nausea: No Vomiting: No
[2024-12-21] MEDS: Lactated Ringers 1,000 ML 15 ML IV (14:17)
[2024-12-21] MEDS: Cefazolin 2 GM in 0.9% Normal Saline (100mL Bag) 100 ML IV (20:08)
[2024-12-21] MEDS: Senna/Docusate Sodium 1 Tablet PO (20:59)
[2024-12-21] MEDS: MELATONIN 10 MG TABLET PO (23:02)
[2024-12-22] VITALS (11 sets, daily range): BP systolic 126–162; BP diastolic 62–88; PULSE 79–104; RESP 16–18; TEMP 36.4–36.8; O2SAT 94–98; BMI 29.0
[2024-12-22] MEDS: Cefazolin 2 GM in 0.9% Normal Saline (100mL Bag) 100 ML IV (03:07)
--- NOTE | 2024-12-22 07:00 | RAD_ITS ---
PROCEDURE: RAD/Cerv Spine 2 or 3 Views
[2024-12-22] MEDS: Albuterol 2.5 MG/3 ML VIAL.NEB. INHALATION ×2 (07:13→13:23)
[2024-12-22] MEDS: Budesonide Respules 0.5 MG/2 ML AMPUL.NEB. INHALATION (07:13)
[2024-12-22 07:17] LABS: Hematocrit 46.3 % (40-54); Hemoglobin 15.4 g/dL (13.0-16.5); Immature Granulocytes Count 0.010 X10^3/uL (0.0-0.0); Mean Corp Hgb Conc 33.3 g/dL (32-36); Mean Corpuscular Volume 88.0 fL (80-94); Mean Platelet Vol. 8.8 fl (6.2-12.0); NRBC Flagged by Analyzer 0 % (0-5); Platelet Count 256 K/mm3 (150-450); RBC Distribution Width CV 12.7 % (11.6-14.6); RBC Distribution Width SD 41.1 fl (35.1-43.9); Red Blood Count 5.26 M/mm3 (4.6-6.2); White Blood Count 9.5 K/mm3 (4.4-11.0)
[2024-12-22 07:41] LABS: Anion Gap 10 (5-15); BUN 12 mg/dL (4-19); BUN/Creat Ratio 19.2 RATIO (10-20); Calcium,Total 9.4 mg/dL (7.6-11.0); Carbon Dioxide 25.5 mmol/L (21.0-32.0); Chloride 99 mmol/L (98-108); Estimated Creatinine Clearance 94.08 ml/min (50-250); Glucose 119 mg/dL (70-99); Potassium 4.3 mmol/L (3.3-5.1)
--- NOTE | 2024-12-22 08:00 | PN.HOSP_ITS ---
Reason for Visit
--- NOTE | 2024-12-22 08:00 | PCM.PN.HOSP ---
Reason for Visit Chief Complaint: Worsening bilateral upper and lower extremity weakness Subjective Subjective Patient underwent C3-4 ACDF, removal of previous C4-5 anterior instrumentation, exploration of fusion on 12/21/2024. Postoperative period was complicated by hypertension patient started on antihypertensives Objective Data Objective Data Vital Signs: Vital Signs Temp Pulse Resp BP Pulse Ox O2 Del Method O2 Flow Rate 97.5 F L 86 16 162/83 H 97 Room Air 2 12/22/24 06:57 12/22/24 07:15 12/22/24 07:15 12/22/24 06:57 12/22/24 06:57 12/22/24 06:57 12/21/24 16:51 Oxygen Flow Rate (L/min) 2 Oxygen Delivery Method Room Air Weight: 83.915 kg Body Mass Index (BMI) 29.0 Intake & Output: Intake and Output for Last 24 Hours 12/20/24 12/21/24 12/22/24 23:59 23:59 23:59 Intake Total 1700 / 1700 2360 / 2660 801 / 801 Output Total 1150 / 1150 1920 / 1920 750 / 750 Balance 550 / 550 440 / 740 51 / 51 Lab / Micro Data 12/22/24 07:08 12/22/24 07:08 Labs: Laboratory Results - last 24 hr 12/22/24 07:08: WBC 9.5, RBC 5.26, Hgb 15.4, Hct 46.3, MCV 88.0, MCH 29.3, MCHC 33.3, RDW Std Deviation 41.1, RDW Coeff of Jamie 12.7, Plt Count 256, MPV 8.8, Immature Gran % (Auto) 0.100, Neut % (Auto) 88.0 H, Lymph % (Auto) 6.4 L, Starr % (Auto) 5.4, Eos % (Auto) 0.0, Baso % (Auto) 0.1, Absolute Neuts (auto) 8.3 H, Absolute Lymphs (auto) 0.61 L, Nucleated RBC % 0, Sodium 134, Potassium 4.3, Chloride 99, Carbon Dioxide 25.5, Anion Gap 10, BUN 12, Creatinine 0.61 L, Estim Creat Clear Calc 94.08, Est GFR (MDRD) Non-Af 106, BUN/Creatinine Ratio 19.2, Glucose 119 H, Calcium 9.4 Radiography Diagnostic Testing: Radiology Impression Cervical Spine X-Ray 12/21/24 10:15 IMPRESSION: Anterior fusion at the C3-C4 level with prosthetic disc placement. Disclaimer: Reading Location: [place] [address] Physical Exam Narrative GENERAL: cooperative HEENT: Atraumatic; normocephalic EYES; Anicteric, Normal Conjunctiva NECK; supple, normal thyroid, RESPIRATORY: Diminished to auscultation CARDIOVASCULAR: Regular S1 S2, GI: soft, normoactive bowel sounds, : No Renal angle tenderness; EXTREMITIES: No edema, no clubbing, MUSCULOSKELETAL: no muscle wasting NEURO: Awake; upper extremity weakness right greater than left SKIN: No Rash PSYCH; Flat affect Assessment & Plan Assessment/Plan (1) Cervical spinal stenosis: (2) Cervical myelopathy: (3) Fusion of spine, cervical region: PLAN: Plan Patient is a 64-year-old gentleman admitted with progressive really worsening myelopathy from cervical spine compression. Consult placed to spine surgery Dr. Manley with plans for patient to undergo surgical intervention this a.m. 1. Cervical myelopathy secondary to cervical spine stenosis and neurogenic claudication - Patient with previous fusion at C4-C5 and not instrumental fusion at C5-C6. MRI obtained 12/16/2024 as outpatient demonstrates . Mild multilevel spondylotic changes and postoperative changes of C4-5 ACDF. Degenerative grade 1 anterolisthesis of C3 on C4, and C6 on C7. Advanced spinal canal stenosis at C3-4, with cord impingement and mild cord signal abnormality/edema at this level. Advanced neural foraminal narrowing at C3-4, and moderate at C6-7. Admitted to regular nursing floor for pain management with consult placed to spine surgery with plans for patient to undergo surgical intervention on 12/21/2024 ? 12/22/2022; patient underwent C3-4 ACDF, removal of previous C4-5 anterior instrumentation, exploration of fusion on 12/21/2024. 2. Postop hypertension ? Patient was started on amlodipine as well as losartan also added hydralazine as needed for systolic blood pressure greater than 160 3. Dyslipidemia ?Patient is on statin therapy, continued at home dose 4. GERD with Busch's esophagus ? On PPI 5. COPD ? Currently not in exacerbation Rosamaria treatment as needed 6. H/O esophageal carcinoma - s/p radioablation. Patient remains in remission 7. DVT prophylaxis ? Subcu Lovenox Time spent in the patient's overall evaluation,decision-making process, review of diagnostic data, adjustment of management, discussion with other providers, nursing nursing and ancillary staff involved in patient's care documentation, 38 Minutes Charges/Coding Visit Charges Inpatient E&M: 33904 Subs Hosp L2
[2024-12-22] MEDS: Polyethylene Glycol 3350 17 GM PACKET PO (09:08)
[2024-12-22] MEDS: Senna/Docusate Sodium 1 Tablet PO (09:08)
--- NOTE | 2024-12-22 11:05 | CASEMGMT ---
Addendum entered by Mariela Ace 12/22/24 16:29: TC from Heather at [facility]. Auth has been received with reference #[id number] from 12/22-12/24/24. Pt has 100 skilled days. Auth is good for admission only. Once pt arrives, facility to make [facility] aware and submit clinicals. Addendum entered by Mariela Ace 12/22/24 15:49: MONTY METZ into pt room, he is aware that [facility] has accepted him. Fax sent to [facility] for precert. Pt is medically ready to dc tomorrow. Addendum entered by Mariela Ace 12/22/24 12:43: Spoke with OT regarding re eval. Referral made to [facility], who is unable to accept pt at this time. Requested dc pest controller assistant create list and provide to pt for top 3 choices. Original Note: Noted PT eval. MONTY METZ into pt room, pt sitting up in chair in no distress. Pt states he is feeling well. States he cannot return home at this time. Pt states he would like further therapy prior to going home and wants [facility]. Pt denies need for a list of other options at this time. Pt states PT and OT saw him today. He is aware once OT eval is in, the referral will be made. Pt denies further needs at this time.
--- NOTE | 2024-12-22 12:52 | CASEMGMT ---
Discharge Planning A list of?SNF providers including quality and resource use data and consistent with the patient's preferred geographic region, medical needs, and insurance network was created in [employer] Guide.? This list was provided to the patient. Judith Salazar, Discharge Planning Asst.
--- NOTE | 2024-12-22 13:03 | PCM.PN.ORT ---
Subjective Subjective Postop day 1 C3-4 fusion with revision of prior hardware. The patient is doing well postoperatively with his pain well-controlled. Patient has noticed an improvement already in his symptoms and feels like he is able to move his arms better than he was prior to the surgery. He denies any significant dysphagia. Patient reports that nursing had to change the dressing over his incision twice over the night. Seen with Dr. Méndez. Objective Data Objective Data Vital Signs: Vital Signs Temp Pulse Resp BP Pulse Ox O2 Del Method O2 Flow Rate 98.2 F 95 16 126/62 H 98 Room Air 2 12/22/24 09:44 12/22/24 09:44 12/22/24 09:44 12/22/24 09:44 12/22/24 09:44 12/22/24 09:44 12/21/24 16:51 Oxygen Flow Rate (L/min) 2 Oxygen Delivery Method Room Air Weight: 185 lb 0.014 oz Body Mass Index (BMI) 29.0 Intake & Output: Intake and Output for Last 24 Hours 12/20/24 12/21/24 12/22/24 23:59 23:59 23:59 Intake Total 1700 / 1700 2360 / 2660 1601 / 1601 Output Total 1150 / 1150 1920 / 1920 750 / 750 Balance 550 / 550 440 / 740 851 / 851 Lab / Micro Data 12/22/24 07:08 12/22/24 07:08 Labs: Laboratory Results - last 24 hr 12/22/24 07:08: WBC 9.5, RBC 5.26, Hgb 15.4, Hct 46.3, MCV 88.0, MCH 29.3, MCHC 33.3, RDW Std Deviation 41.1, RDW Coeff of Jamie 12.7, Plt Count 256, MPV 8.8, Immature Gran % (Auto) 0.100, Neut % (Auto) 88.0 H, Lymph % (Auto) 6.4 L, [place] % (Auto) 5.4, Eos % (Auto) 0.0, Baso % (Auto) 0.1, Absolute Neuts (auto) 8.3 H, Absolute Lymphs (auto) 0.61 L, Nucleated RBC % 0, Sodium 134, Potassium 4.3, Chloride 99, Carbon Dioxide 25.5, Anion Gap 10, BUN 12, Creatinine 0.61 L, Estim Creat Clear Calc 94.08, Est GFR (MDRD) Non-Af 106, BUN/Creatinine Ratio 19.2, Glucose 119 H, Calcium 9.4 Radiography Diagnostic Testing: Radiology Impression Cervical Spine X-Ray 12/22/24 07:00 IMPRESSION: Uncomplicated cervical fusion. Advanced degenerative changes. See above description. Reading Location: [facility] Physical Exam Narrative Neurological exam of the upper extremities shows 5X5 power. 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 Normal sensation across all dermatomes. Drain removed. Tegaderm and gauze was applied over the incision. Const alert, oriented x3 and no apparent distress Assessment & Plan Assessment/Plan (1) Status post cervical spinal fusion: PLAN: Plan Postop day 1 C3-4 fusion with revision of prior hardware. Obtained reviewed x-rays today which show hardware and bone graft in good position. Patient's pain well-controlled. PT/OT on board. Plan for discharge to TCU. Educated and reviewed on the use of the incentive spirometer. Educated and reviewed on the restrictions no bending, lifting, twisting. Follow-up in the clinic in 2 weeks, if the patient is at inpatient rehab or the TCU we can see him there. Patient is in agreement to the plan.
--- NOTE | 2024-12-22 13:54 | CASEMGMT ---
Addendum entered by Judith Salazar 12/22/24 14:53: [facility] has declined. MONTY METZ updated. Judith Salazar DC Planning Asst. Original Note: Discharge Planning This customs entry writer followed up with pt and his daughter for snf choices. They are as follows; 1) [facility] 2) [facility] 3) [facility]. Referral sent to [facility]. MONTY METZ updated. Judith Salazar DC Planning Asst.
--- NOTE | 2024-12-22 14:55 | CASEMGMT ---
Addendum entered by Judith Salazar 12/22/24 15:10: [facility] has accepted. MONTY CM updated. Judith Salazar DC Planning Asst. Original Note: Discharge Planning Referral sent to [facility]. Judith Salazar DC Planning Asst.
[2024-12-22] MEDS: 0.9% Saline Lock 10 ML Syringe IV ×3 (17:24→23:27)
[2024-12-22] MEDS: Ensure Surgery 237 ML LIQUID PO (21:42)
[2024-12-22] MEDS: MELATONIN 10 MG TABLET PO (21:42)
--- NOTE | 2024-12-22 22:01 | PCM.HOSP.N ---
Hospitalist Note Pt reports that pantoprazole is not helping his GERD sx; he normally takes omeprazole when at home. Discussed with [facility] pharmacist PPIs on facility formulary, we have pantoprazole and lansoprazole only in PO form. I added famotidine 20mg PO QHS while he is a patient here. Consider increasing famotidine to 40mg or to twice daily, if current is not sufficient.
[2024-12-23 04:28] VITALS: BP 134/76; PULSE 73; RESP 16; TEMP 36.3; O2SAT 95
[2024-12-23] MEDS: Albuterol 2.5 MG/3 ML VIAL.NEB. INHALATION (06:41)
[2024-12-23 07:00] VITALS: PULSE 89; RESP 17
[2024-12-23] MEDS: Budesonide Respules 0.5 MG/2 ML AMPUL.NEB. INHALATION (07:00)
--- NOTE | 2024-12-23 08:24 | PCM.TXEXTCAR ---
Diet Diet Order/Speech Therapy: INPATIENT Hospital Diet / Speech Therapy Order(s) 12/21/24 13:09 Diet: Regular - General Food consistency:: Regular Liquid Consistency:: Regular/Thin Type of Dietary Supplement:: Grzegorz Diet Comments: 240 mL Grzegorz BID at Lunch and Dinner (orange) Routine Orders/Code Status Code Status: Full Code DC O2, CPAP, BIPAP needs Home O2 Discharge instructions: No Wound(s) neck: Wound Type: Surgical Incision Therapies Physical Therapy: Eval and Treat Occupational Therapy: Eval and Treat Problem/Diagnosis (1) Status post cervical spinal fusion: Status: Acute Code(s): Z98.1 - Arthrodesis status Plan Patient is a 64-year-old gentleman admitted with progressive really worsening myelopathy from cervical spine compression. Consult placed to spine surgery Dr. Méndez with plans for patient to undergo surgical intervention this a.m. 1. Cervical myelopathy secondary to cervical spine stenosis and neurogenic claudication - Patient with previous fusion at C4-C5 and not instrumental fusion at C5-C6. MRI obtained 12/16/2024 as outpatient demonstrates . Mild multilevel spondylotic changes and postoperative changes of C4-5 ACDF. Degenerative grade 1 anterolisthesis of C3 on C4, and C6 on C7. Advanced spinal canal stenosis at C3-4, with cord impingement and mild cord signal abnormality/edema at this level. Advanced neural foraminal narrowing at C3-4, and moderate at C6-7. Admitted to regular nursing floor for pain management with consult placed to spine surgery with plans for patient to undergo surgical intervention on 12/21/2024 ? 12/22/2022; patient underwent C3-4 ACDF, removal of previous C4-5 anterior instrumentation, exploration of fusion on 12/21/2024. 12/23/2024; patient was discharged with transitional care unit to continue with his recuperation 2. Postop hypertension ? Patient was started on amlodipine as well as losartan also added hydralazine as needed for systolic blood pressure greater than 160 3. Dyslipidemia ?Patient is on statin therapy, continued at home dose 4. GERD with Busch's esophagus ? On PPI 5. COPD ? Currently not in exacerbation Rosamaria treatment as needed 6. H/O esophageal carcinoma - s/p radioablation. Patient remains in remission 7. DVT prophylaxis ? Subcu Lovenox Time spent in the patient's overall evaluation,decision-making process, review of diagnostic data, adjustment of management, discussion with other providers, nursing nursing and ancillary staff involved in patient's care documentation, 38 Minutes Allergies/Procedures Done in Hospital Allergies diphenhydramine (From Benadryl) Allergy (Verified 12/21/24 10:06) hyper Type of Care/Length of Stay Estimated LOS: Convalescent Care Less Than 30 days Type of Care Needed: Skilled Rehab Potential: Good Prognosis: Good Additional Orders/Day of Discharge Day of Discharge: 12/23/24 Dietary and Speech Recommendations Dietitian Recommendations/Changes: Continue current Regular diet per MD order. D/C Ensure Surgery Order Grzegorz BID to support wound healing Discharge Plan Admission Admit Date/Time: 12/17/24 13:57 Attending Provider: Edson Hernandez Primary Care Provider: Sourav Castro Consulting Providers: Herminio Méndez; Jun John; Madelin Grossman Discharge Orders/Prescriptions Prescriptions: New acetaminophen 500 mg Tablet 1,000 mg PO Q8 Qty: 0 0RF amlodipine 5 mg Tablet 5 mg PO DAILY Qty: 90 0RF enoxaparin 40 mg/0.4 mL Syringe 40 mg subcut DAILY 30 Days Qty: 0 0RF Ensure Surgery 0.08-1.4 gram-kcal/mL Liquid 237 ml PO TIDCM Qty: 0 0RF losartan 25 mg Tablet 25 mg PO BID 90 Days Qty: 180 0RF melatonin 10 mg Tablet,Disintegrating 10 mg PO QHS PRN PRN (Reason: Insomnia) Qty: 0 0RF meloxicam 15 mg Tablet 15 mg PO DAILY Qty: 0 0RF sennosides-docusate sodium [Stimulant Laxative Plus] 8.6-50 mg Tablet 1 tab PO DAILY Qty: 0 0RF albuterol sulfate 2.5 mg /3 mL (0.083 %) Solution For Nebulization 2.5 mg inhalation Q6HWA.RT Qty: 0 0RF tramadol 50 mg Tablet 50 mg PO TID 2 Days Qty: 6 0RF Continued omeprazole 20 mg capsule,delayed release(DR/EC) 20 mg PO QDAY aspirin 81 mg Capsule 81 mg PO DAILY budesonide-formoterol [Symbicort] 160-4.5 mcg/actuation HFA aerosol inhaler 1 puff INHALATION BID PRN (Reason: ASTHMA) Patient Comments: INHALE ONE PUFF INTO THE LUNGS TWICE DAILY baclofen 5 mg tablet 5 mg PO TID atorvastatin [Lipitor] 20 mg tablet 20 mg PO DAILY cetirizine 10 mg tablet 10 mg PO QDAY Discontinued tramadol 50 mg tablet 50 mg PO BID Referrals / Follow Up: Herminio Méndez MD [Med Staff - Active Staff, Orthopedics] - Within 2 Weeks Sourav Castro MD [Primary Care Provider, Family Practice] Disposition Disposition (needs filled in before D/C Order can be placed): [facility]
--- NOTE | 2024-12-23 08:32 | PCM.DC.SUM ---
Providers Date of Admission: 12/17/24 Date of Discharge: 12/23/24 Primary Care Physician: Dr. Sourav Castro MD Consultations 12/17/24 14:45 Consult: Orthopedics Routine Consulting Provider: Herminio Méndez Reason for Consult: severe C-spine stenosis w/ R sided weakness EMERGENT Consult: No MD Notified: Yes Date Notified: 12/17/24 Time Notified: 14:48 Method of Notification: Text Reason For Visit: C-SPINE STENOSIS W/CORD IMPINGEMENT AND WORSENING Diagnosis Discharge Diagnosis (1) Status post cervical spinal fusion: Status: Acute Code(s): Z98.1 - Arthrodesis status Plan Patient is a 64-year-old gentleman admitted with progressive really worsening myelopathy from cervical spine compression. Consult placed to spine surgery Dr. Méndez with plans for patient to undergo surgical intervention this a.m. 1. Cervical myelopathy secondary to cervical spine stenosis and neurogenic claudication - Patient with previous fusion at C4-C5 and not instrumental fusion at C5-C6. MRI obtained 12/16/2024 as outpatient demonstrates . Mild multilevel spondylotic changes and postoperative changes of C4-5 ACDF. Degenerative grade 1 anterolisthesis of C3 on C4, and C6 on C7. Advanced spinal canal stenosis at C3-4, with cord impingement and mild cord signal abnormality/edema at this level. Advanced neural foraminal narrowing at C3-4, and moderate at C6-7. Admitted to regular nursing floor for pain management with consult placed to spine surgery with plans for patient to undergo surgical intervention on 12/21/2024 ? 12/22/2022; patient underwent C3-4 ACDF, removal of previous C4-5 anterior instrumentation, exploration of fusion on 12/21/2024. 12/23/2024; patient was discharged with transitional care unit to continue with his recuperation 2. Postop hypertension ? Patient was started on amlodipine as well as losartan also added hydralazine as needed for systolic blood pressure greater than 160 3. Dyslipidemia ?Patient is on statin therapy, continued at home dose 4. GERD with Busch's esophagus ? On PPI 5. COPD ? Currently not in exacerbation Rosamaria treatment as needed 6. H/O esophageal carcinoma - s/p radioablation. Patient remains in remission 7. DVT prophylaxis ? Subcu Lovenox Time spent in the patient's overall evaluation,decision-making process, review of diagnostic data, adjustment of management, discussion with other providers, nursing nursing and ancillary staff involved in patient's care documentation, 35 Minutes Medications at Discharge Home Medications aspirin 81 mg capsule 81 mg PO DAILY heart health 03/07/21 atorvastatin 20 mg tablet (Lipitor) 20 mg PO DAILY cholesterol 09/18/24 budesonide-formoterol HFA 160 mcg-4.5 mcg/actuation aerosol inhaler (Symbicort) 1 puff inhalation BID PRN ASTHMA 12/16/24 cetirizine 10 mg tablet 10 mg PO QDAY allergies 12/16/24 omeprazole 20 mg capsule,delayed release 20 mg PO QDAY 12/16/24 baclofen 5 mg tablet 5 mg PO TID 12/17/24 acetaminophen 500 mg tablet 1,000 mg (2 x 500 mg) PO Q8 #0 tabs 12/23/24 albuterol sulfate 2.5 mg/3 mL (0.083 %) solution for nebulization 2.5 mg (3 mL) inhalation Q6HWA.RT #0 mL 12/23/24 amlodipine 5 mg tablet 5 mg PO DAILY #90 tabs 12/23/24 enoxaparin 40 mg/0.4 mL subcutaneous syringe 40 mg (0.4 mL) subcut DAILY 30 days #0 mL 12/23/24 losartan 25 mg tablet 25 mg PO BID 90 days #180 tabs 12/23/24 melatonin 10 mg disintegrating tablet 10 mg PO QHS PRN PRN Insomnia #0 tabs 12/23/24 meloxicam 15 mg tablet 15 mg PO DAILY #0 tabs 12/23/24 nut.tx.comp. immune systm,reg 0.08 gram-1.4 kcal/mL oral liquid (Ensure Surgery) 237 ml PO TIDCM #0 mL 12/23/24 sennosides 8.6 mg-docusate sodium 50 mg tablet (Stimulant Laxative Plus) 1 tab PO DAILY #0 tabs 12/23/24 tramadol 50 mg tablet 50 mg PO TID 2 days #6 tabs 12/23/24 Physical Exam Narrative GENERAL: cooperative HEENT: Atraumatic; normocephalic EYES; Anicteric, Normal Conjunctiva NECK; neck in c-collar RESPIRATORY: Diminished to auscultation CARDIOVASCULAR: Regular S1 S2, GI: soft, normoactive bowel sounds, : No Renal angle tenderness; EXTREMITIES: No edema, no clubbing, MUSCULOSKELETAL: no muscle wasting NEURO: Awake; upper extremity weakness right greater than left SKIN: No Rash PSYCH; Flat affect Weight / BMI Weight Weight: 83 kg Body Mass Index (BMI) 29.0 ABG / Lab / Microbiology Data 12/22/24 07:08 12/22/24 07:08 Radiography Diagnostic Testing: Radiology Impression Cervical Spine X-Ray 12/22/24 07:00 IMPRESSION: Uncomplicated cervical fusion. Advanced degenerative changes. See above description. Reading Location: [id number] Instructions Discharge Activity: Return to Normal Activity Call your doctor if you observe: Fever of 101 or Higher, Shortness of breath, Fainting spells and Chest pain DC O2, CPAP, BIPAP Needs Home O2 Discharge instructions: No Meaningful Use Info Meaningful Use Meaningful Use Diagnoses (Choose all that apply): None applicable Discharge Plan Admission Admit Date/Time: 12/17/24 13:57 Attending Provider: Edson Hernandez Primary Care Provider: Sourav Castro Consulting Providers: Herminio Méndez; Jun John; Madelin Grossman Discharge Orders/Prescriptions Prescriptions: New acetaminophen 500 mg Tablet 1,000 mg PO Q8 Qty: 0 0RF amlodipine 5 mg Tablet 5 mg PO DAILY Qty: 90 0RF enoxaparin 40 mg/0.4 mL Syringe 40 mg subcut DAILY 30 Days Qty: 0 0RF Ensure Surgery 0.08-1.4 gram-kcal/mL Liquid 237 ml PO TIDCM Qty: 0 0RF losartan 25 mg Tablet 25 mg PO BID 90 Days Qty: 180 0RF melatonin 10 mg Tablet,Disintegrating 10 mg PO QHS PRN PRN (Reason: Insomnia) Qty: 0 0RF meloxicam 15 mg Tablet 15 mg PO DAILY Qty: 0 0RF sennosides-docusate sodium [Stimulant Laxative Plus] 8.6-50 mg Tablet 1 tab PO DAILY Qty: 0 0RF albuterol sulfate 2.5 mg /3 mL (0.083 %) Solution For Nebulization 2.5 mg inhalation Q6HWA.RT Qty: 0 0RF tramadol 50 mg Tablet 50 mg PO TID 2 Days Qty: 6 0RF Continued omeprazole 20 mg capsule,delayed release(DR/EC) 20 mg PO QDAY aspirin 81 mg Capsule 81 mg PO DAILY budesonide-formoterol [Symbicort] 160-4.5 mcg/actuation HFA aerosol inhaler 1 puff INHALATION BID PRN (Reason: ASTHMA) Patient Comments: INHALE ONE PUFF INTO THE LUNGS TWICE DAILY baclofen 5 mg tablet 5 mg PO TID atorvastatin [Lipitor] 20 mg tablet 20 mg PO DAILY cetirizine 10 mg tablet 10 mg PO QDAY Discontinued tramadol 50 mg tablet 50 mg PO BID Referrals / Follow Up: Herminio Méndez MD [Med Staff - Active Staff, Orthopedics] - Within 2 Weeks Sourav Castro MD [Primary Care Provider, Family Practice] Disposition Disposition (needs filled in before D/C Order can be placed): Care Home Facility Charges/Coding Visit Charges Inpatient E&M: 17804 Disch Hosp >30min
--- NOTE | 2024-12-23 08:35 | PHA.DC_ITS ---
Pharmacy DC Med Reconciliation
--- NOTE | 2024-12-23 08:35 | PHA.DC.MR.R ---
Pharmacy [place] Med Reconciliation Pharmacy Service has performed discharge medication reconciliation for this patient. The patient's discharge medication list was reviewed for discrepancies and discrepancies were resolved. Medications at Discharge Home Medications aspirin 81 mg capsule 81 mg PO DAILY heart health 03/07/21 atorvastatin 20 mg tablet (Lipitor) 20 mg PO DAILY cholesterol 09/18/24 budesonide-formoterol HFA 160 mcg-4.5 mcg/actuation aerosol inhaler (Symbicort) 1 puff inhalation BID PRN ASTHMA 12/16/24 cetirizine 10 mg tablet 10 mg PO QDAY allergies 12/16/24 omeprazole 20 mg capsule,delayed release 20 mg PO QDAY 12/16/24 baclofen 5 mg tablet 5 mg PO TID 12/17/24 acetaminophen 500 mg tablet 1,000 mg (2 x 500 mg) PO Q8 #0 tabs 12/23/24 albuterol sulfate 2.5 mg/3 mL (0.083 %) solution for nebulization 2.5 mg (3 mL) inhalation Q6HWA.RT #0 mL 12/23/24 amlodipine 5 mg tablet 5 mg PO DAILY #90 tabs 12/23/24 enoxaparin 40 mg/0.4 mL subcutaneous syringe 40 mg (0.4 mL) subcut DAILY 30 days #0 mL 12/23/24 losartan 25 mg tablet 25 mg PO BID 90 days #180 tabs 12/23/24 melatonin 10 mg disintegrating tablet 10 mg PO QHS PRN PRN Insomnia #0 tabs 12/23/24 meloxicam 15 mg tablet 15 mg PO DAILY #0 tabs 12/23/24 nut.tx.comp. immune systm,reg 0.08 gram-1.4 kcal/mL oral liquid (Ensure Surgery) 237 ml PO TIDCM #0 mL 12/23/24 sennosides 8.6 mg-docusate sodium 50 mg tablet (Stimulant Laxative Plus) 1 tab PO DAILY #0 tabs 12/23/24 tramadol 50 mg tablet 50 mg PO TID 2 days #6 tabs 12/23/24
--- NOTE | 2024-12-23 09:25 | CASEMGMT ---
RN CM into pt room, pt aware he gets to dc today. Pt states he would like transport set up as he does not have anyone who is available to transport him today. Pt denies further needs at this time. 7000 completed and transport form completed. DC web marketing assistant to make final arrangements for dc. Pt to dc to [facility] under skilled level of care.
[2024-12-23 09:35] VITALS: BP 141/71; PULSE 74; RESP 17; TEMP 36.8; O2SAT 95
[2024-12-23] MEDS: Senna/Docusate Sodium 1 Tablet PO (09:37)
[2024-12-23] MEDS: Polyethylene Glycol 3350 17 GM PACKET PO (09:37)
[2024-12-23] MEDS: Ensure Surgery 237 ML LIQUID PO (09:37)
--- NOTE | 2024-12-23 10:10 | CASEMGMT ---
Discharge Planning Discharge orders, signed med list, ins auth number, and transport time sent via [facility] to [facility]. Physicians will transport pt by wheelchair at 10:30a. Nursing, SW, and pt updated. Pt was on speakerphone with daughter (Adrienne) so she was updated as well. He denies need for me to call his son. Judith Salazar DC Planning Asst.
[2024-12-23] MEDS: 0.9% Saline Lock 10 ML Syringe IV (10:18)
== END 2024-12-23 10:52 | DRG 471 ==
LOC: ED 14:08 → MS3 14:27
PROVIDERS: Internal Medicine; Orthopaedic Surgery Orthopaedic Surgery of the Spine; Student in an Organized Health Care Education/Training Program; Admitting Provider Hospitalist; Emergency Provider Emergency Medicine; PCP Family Medicine; Visit Provider Internal Medicine
PROC: (CPT 22551; principal; 2024-12-21 10:45)
DX: M47.12 Other spondylosis with myelopathy, cervical region (principal); G95.19 Other vascular myelopathies; E22.2 Syndrome of inappropriate secretion of antidiuretic hormone; G95.89 Other specified diseases of spinal cord; J44.9 Chronic obstructive pulmonary disease, unspecified; I10 Essential (primary) hypertension; I97.3 Postprocedural hypertension; K21.9 Gastro-esophageal reflux disease without esophagitis; G47.30 Sleep apnea, unspecified; E78.5 Hyperlipidemia, unspecified; M48.02 Spinal stenosis, cervical region; M48.062 Spinal stenosis, lumbar region with neurogenic claudication; G62.9 Polyneuropathy, unspecified; K22.70 Barrett's esophagus without dysplasia; M62.838 Other muscle spasm; Z89.021 Acquired absence of right finger(s); G89.29 Other chronic pain; M62.81 Muscle weakness (generalized); E66.3 Overweight; R21 Rash and other nonspecific skin eruption; Z92.3 Personal history of irradiation; Z79.82 Long term (current) use of aspirin; Z85.01 Personal history of malignant neoplasm of esophagus; Z98.1 Arthrodesis status; Z68.29 Body mass index [BMI] 29.0-29.9, adult; Z87.898 Personal history of other specified conditions; Z79.899 Other long term (current) drug therapy; Z87.891 Personal history of nicotine dependence
CPT/HCPCS: 36415; 71045; 72040; 72050; 72100; 72141; 72148; 76000; 80048; 80053; 82140; 82607; 82747; 82784; 83735; 83883; 84165; 84207; 84425; 84443; 85014; 85025; 85027; 85610; 85652; 86038; 86140; 86225; 86334; 93005; 94640; 94668; 97116; 97162; 97166; 97168; 97530; 97535; 99284; A4648; C1713; A4216; J2405

== ENCOUNTER 2024-12-28 14:25 | Inpatient (IN) | payer MEDICARE, SELFPAY ==
[2024-12-28] VITALS (10 sets, daily range): BP systolic 129–153; BP diastolic 63–85; PULSE 69–104; RESP 16–26; TEMP 36.3–36.8; O2SAT 95–98; BMI 28.6
--- NOTE | 2024-12-28 15:14 | MRI_ITS ---
PROCEDURE: MRI/Spine Cervical W/WO Contrast
--- NOTE | 2024-12-28 15:17 | EX.ED.DYSGE1 ---
HPI History of Present Illness Chief Complaint: Neuro S/Sx Informant: patient and family (Daughter) Onset/Context/Timing Onset: Days (Started getting worse this past Saturday.) Context: Gradual Onset Timing: Continuous Current Severity: Moderate Maximum Severity: Moderate Narrative Narrative: 64-year-old male history of degenerative disc disease in his cervical spine for which he underwent C3-C3 laminectomy 1 week ago last Saturday by Dr. Méndez. Patient is doing better postbiopsy this past Saturday started having worsening symptoms with decrease sensation and strength in both upper extremities. Worse on the right. Also on the lower extremities again more so on the right. Denies fever or chills. Currently is also at [facility]. Daughter has concerns about his rehabilitation there. Prior similar symptoms: Yes Recent Illness/Hospitalization: Yes [facility] Medical History Wears partial dentures Wears glasses Alcohol use History of steroid therapy Arthritis High cholesterol Injury of back Injury of head and neck Gastric reflux Former smoker CPAP (continuous positive airway pressure) dependence Sleep apnea COPD (chronic obstructive pulmonary disease) Asthma Leg cramps History of stress test History of echocardiogram History of irregular heartbeat Hx of esophageal varices Esophageal cancer High cholesterol Hypertension Home Medications ?Medication ?Instructions ?Recorded ?Last Taken ?Type aspirin 81 mg capsule 81 mg PO DAILY heart health 03/07/21 09/18/24 History atorvastatin 20 mg tablet (Lipitor) 20 mg PO DAILY cholesterol 09/18/24 09/17/24 History budesonide-formoterol HFA 160 1 puff inhalation PRN COPD 12/16/24 Unknown History mcg-4.5 mcg/actuation aerosol inhaler (Symbicort) cetirizine 10 mg tablet 10 mg PO QDAY allergies 12/16/24 Unknown History omeprazole 20 mg capsule,delayed 20 mg PO QDAY 12/16/24 Unknown History release baclofen 5 mg tablet 5 mg PO TID 12/17/24 Unknown History amlodipine 5 mg tablet 5 mg PO DAILY HTN #90 tabs 12/23/24 Unknown Rx enoxaparin 40 mg/0.4 mL 40 mg (0.4 mL) subcut DAILY 30 12/23/24 Unknown Rx subcutaneous syringe days #0 mL losartan 25 mg tablet 25 mg PO BID 90 days #180 tabs 12/23/24 Unknown Rx meloxicam 15 mg tablet 15 mg PO DAILY #0 tabs 12/23/24 Unknown Rx sennosides 8.6 mg-docusate sodium 1 tab PO DAILY #0 tabs 12/23/24 Unknown Rx 50 mg tablet (Stimulant Laxative Plus) tramadol 50 mg tablet 50 mg PO TID 2 days #6 tabs 12/23/24 12/28/24 Rx acetaminophen 325 mg capsule 650 mg PO Q4H PRN pain 12/28/24 Unknown History acetaminophen 500 mg tablet 1,000 mg PO Q8H PRN pain 12/28/24 Unknown History acetaminophen 650 mg rectal 650 mg AR Q4H PRN fever or pain 12/28/24 Unknown History suppository albuterol sulfate 2.5 mg/3 mL 2.5 mg inhalation BID COPD 12/28/24 Unknown History (0.083 %) solution for nebulization bisacodyl 10 mg rectal suppository 10 mg AR DAILY PRN constipation 12/28/24 Unknown History glucagon 1 mg solution for 1 mg IM Q20M PRN hypoglycemia 12/28/24 Unknown History injection (Glucagon Emergency Kit) magnesium hydroxide 400 mg/5 mL 30 ml PO PRN CONSTIPATION 12/28/24 Unknown History oral suspension (Montanez Milk of Magnesia) melatonin 5 mg capsule 10 mg PO QHS PRN insomnia 12/28/24 Unknown History Allergy/AdvReac Type Severity Reaction Status Date / Time diphenhydramine (From Allergy hyper Verified 12/28/24 14:27 Benadryl) Family History Father Cancer Other Hypertension Surgical History History of total left knee replacement (~03/2021) Hx of tooth extraction Hx of elbow surgery Hx of shoulder surgery Hx of foot surgery Hx of right knee surgery (~2008) History of carpal tunnel release of both wrists H/O cervical spine surgery Social History household members: none Smoking Status: Former smoker alcohol intake: former substance use type: does not use ROS ROS ED ROS Narrative Denies round cell illness. Constitutional Constitutional ED: Denies chills or fever(s) Eyes Eyes: Denies blurry vision ENT ENT ED: Denies ear pain Cardiovascular Cardiovascular: Denies chest pain Respiratory/Chest Respiratory/Chest: Denies cough or dyspnea Gastrointestinal Gastrointestinal: Denies abdominal pain Genitourinary Genitourinary ED: Denies dysuria or hematuria Musculoskeletal Musculoskeletal: Reports back pain and neck pain; Denies arthralgias Integumentary Denies abscess or Abrasions Neurologic Neurologic: Denies headache(s) Psychiatric Psychiatric: Denies anxiety Endocrine Endocrinology: Denies cold intolerance Hematologic/Lymphatic Hematologic/Lymphatic: Reports none Allergic/Immunologic Allergic/Immunologic ED: Denies mouth swelling, tongue swelling or urticaria EXAM Physical Exam Narrative Exam Narrative: 64-year-old male sitting upright in bed. Cervical collar in place. Daughter at bedside. Vital signs are stable afebrile. No acute distress. H EENT exam pupils round react light. Moist mutes membranes. Neck is an anterior approach cervical incision. Dry and clean. Steri-Strips are in place. I left the collar on. Back nontender. Lungs clear to auscultation. Heart regular rhythm rate about 70 no murmur. Chest wall ribs nontender. Abdomen soft nontender. Moving all 4 extremities but there are generally weak. His technology recruiter strength is 4 out of 5 on the left and 3 out of 5 on the right. He has trouble lifting his arms. He has sensation but is decreased on both sides. Lower extremities again 4 out of 5 on the left maybe 3 out of 5 on the right. Trouble lifting them. Limited dorsi plantarflexion. Neurologically he is awake he is alert. He is answering questions following commands. There is abnormal strength and sensation in both upper and lower extremities and worse on the right side. Const Vital Signs: 12/28/24 14:27 12/28/24 15:26 12/28/24 16:00 Temperature 97.3 F L Temperature Source Temporal Pulse Rate 69 80 78 Respiratory Rate 20 H 20 H 26 H Blood Pressure 139/73 H 133/63 H 129/68 H Blood Pressure Mean 95 86 88 Pulse Ox 96 97 95 Oxygen Delivery Method Room Air Room Air 12/28/24 18:18 12/28/24 19:00 12/28/24 20:00 Temperature Temperature Source Pulse Rate 78 79 91 Respiratory Rate 22 H 20 H 22 H Blood Pressure 148/78 H 146/85 H 129/80 H Blood Pressure Mean 101 105 96 Pulse Ox 98 95 97 Oxygen Delivery Method Room Air Room Air MDM MDM MDM Narrative Medical decision making narrative: 64-year-old male status post C3-4 laminectomy a week ago. Having worsening symptoms with increasing weakness right side more than left both upper and lower extremities. Decreased sensation bilaterally. Patient to be treated with morphine for pain. Valium for muscle spasms. Added a CT with and without contrast MRI of his C-spine will be obtained along with screening labs. Have already spoken to his orthopedic spine surgeon Dr. Méndez. He will be down to evaluate the patient also. Repeat exam after MRI no significant change. He is awake and alert. I discussed with Dr. Osborne who reviewed his MRI results. Patient will be admitted to the hospitalist with consult to spine surgery and physical therapy. Daughter is at bedside is comfortable to plan. History & Record Review Discussion w/independent historian: Patient and Family Additional record(s) reviewed:: Prior inpatient record, Prior outpatient record, Prior ED visit and Prior labs Lab Data Attestation: I reviewed the patient's lab results. Lab results narrative: CBC shows a white count of 7. H&H 15 and 45. Platelets 256. Chemistry shows sodium 131. Gap 12. BUN and creatinine 23 and 0.8. Glucose 122. Labs: Laboratory Results - last 24 hr 12/28/24 14:44 WBC 7.9 RBC 5.11 Hgb 15.0 Hct 45.2 MCV 88.5 MCH 29.4 MCHC 33.2 RDW Std Deviation 41.6 RDW Coeff of Jamie 12.8 Plt Count 256 MPV 9.5 Immature Gran % (Auto) 0.400 Neut % (Auto) 75.9 H Lymph % (Auto) 8.6 L Anderson % (Auto) 11.5 H Eos % (Auto) 3.2 Baso % (Auto) 0.4 Absolute Neuts (auto) 6.0 Absolute Lymphs (auto) 0.68 L Nucleated RBC % 0 Sodium 131 L Potassium 4.2 Chloride 96 L Carbon Dioxide 22.6 Anion Gap 12 BUN 23 H Creatinine 0.85 Estim Creat Clear Calc 90.08 Est GFR (MDRD) Non-Af 96 BUN/Creatinine Ratio 26.9 H Glucose 122 H Calcium 10.0 Radiography Diagnostic Testing: Clinical Impression(s) from Imaging Studies Cervical Spine MRI 12/28/24 15:14 IMPRESSION: Mild improvement in spinal stenosis at C3-4 status post surgery with removal of inferior hardware. Persistent moderate canal narrowing and again noted is myelomalacia. There is no pathologic enhancement. Reading [facility] Discharge Plan Dx/Rx/DC Orders Clinical Impression: Weakness, History of cervical spinal surgery, Cervical spinal stenosis, Essential (primary) hypertension Disposition Disposition: Acute Care Hospital [facility]
[2024-12-28 15:42] LABS: Hematocrit 45.2 % (40-54); Hemoglobin 15.0 g/dL (13.0-16.5); Immature Granulocytes Count 0.030 X10^3/uL (0.0-0.0); Mean Corp Hgb Conc 33.2 g/dL (32-36); Mean Corpuscular Volume 88.5 fL (80-94); Mean Platelet Vol. 9.5 fl (6.2-12.0); NRBC Flagged by Analyzer 0 % (0-5); Platelet Count 256 K/mm3 (150-450); RBC Distribution Width CV 12.8 % (11.6-14.6); RBC Distribution Width SD 41.6 fl (35.1-43.9); Red Blood Count 5.11 M/mm3 (4.6-6.2); White Blood Count 7.9 K/mm3 (4.4-11.0)
[2024-12-28 16:40] LABS: Anion Gap 12 (5-15); BUN 23 mg/dL (4-19); BUN/Creat Ratio 26.9 RATIO (10-20); Calcium,Total 10.0 mg/dL (7.6-11.0); Carbon Dioxide 22.6 mmol/L (21.0-32.0); Chloride 96 mmol/L (98-108); Estimated Creatinine Clearance 90.08 ml/min (50-250); Glucose 122 mg/dL (70-99); Potassium 4.2 mmol/L (3.3-5.1)
--- NOTE | 2024-12-28 20:52 | CM.ED ---
Social Work SW met with daughter who expressed many concerns and frustration surrounding patients care at [facility]. According to daughter, patient is not receiving the care and therapy he needs and has physically regressed. Daughter does not want patient returning to [facility]. SW provided daughter a list of SNF that were able to accept patients insurance in the [facility]. Francisco COCHRAN is a [facility] surveryor and she wanted to ask her opinion on what SNF to request. Daughter also stated that her first preference is [facility] as patient has been there in the past and they were very happy with the care received. Daughter aware that [facility] does not have any open beds. Nelly Marcano, IMAGING AIDE, CLIENT TECHNOLOGIES SPECIALIST
--- NOTE | 2024-12-28 20:57 | PCM.HP.STD ---
HPI - General General Date of Admission: 12/28/24 Date of Service: 12/28/24 Chief Complaint: Decreased strength and sensation bilateral upper extremity HPI Narrative TOYA SOUSA, is a 64 M who presents to the emergency room with chief complaint of decreased sensation in and strength in the bilateral upper extremities right greater than left. Patient has a significant past medical history of C3-C4 fusion and removal of hardware between C4 and C5 (from previous surgery) 1 week ago. Patient had been doing better postoperatively but on Saturday he began having decreased sensation and strength in both upper extremities worse on the right side versus his left. Patient has been at [facility] for rehabilitation but feels he has not been getting physical therapy as was recommended there. Repeat MRI imaging was done here in the emergency room and found to be stable with no worsening pathologic findings. Patient denies any chest pain, shortness of breath, fevers or chills, nausea vomiting or diarrhea. Patient will be admitted for management of his pain and to work with physical therapy per Dr. Méndez recommendations. [facility] Medical History Wears partial dentures Wears glasses Alcohol use History of steroid therapy Arthritis High cholesterol Injury of back Injury of head and neck Gastric reflux Former smoker CPAP (continuous positive airway pressure) dependence Sleep apnea COPD (chronic obstructive pulmonary disease) Asthma Leg cramps History of stress test History of echocardiogram History of irregular heartbeat Hx of esophageal varices Esophageal cancer High cholesterol Hypertension Home Medications ?Medication ?Instructions ?Recorded ?Last Taken ?Type aspirin 81 mg capsule 81 mg PO DAILY heart health 03/07/21 09/18/24 History atorvastatin 20 mg tablet (Lipitor) 20 mg PO DAILY cholesterol 09/18/24 09/17/24 History budesonide-formoterol HFA 160 1 puff inhalation PRN COPD 12/16/24 Unknown History mcg-4.5 mcg/actuation aerosol inhaler (Symbicort) cetirizine 10 mg tablet 10 mg PO QDAY allergies 12/16/24 Unknown History omeprazole 20 mg capsule,delayed 20 mg PO QDAY 12/16/24 Unknown History release baclofen 5 mg tablet 5 mg PO TID 12/17/24 Unknown History amlodipine 5 mg tablet 5 mg PO DAILY HTN #90 tabs 12/23/24 Unknown Rx enoxaparin 40 mg/0.4 mL 40 mg (0.4 mL) subcut DAILY 30 12/23/24 Unknown Rx subcutaneous syringe days #0 mL losartan 25 mg tablet 25 mg PO BID 90 days #180 tabs 12/23/24 Unknown Rx meloxicam 15 mg tablet 15 mg PO DAILY #0 tabs 12/23/24 Unknown Rx sennosides 8.6 mg-docusate sodium 1 tab PO DAILY #0 tabs 12/23/24 Unknown Rx 50 mg tablet (Stimulant Laxative Plus) tramadol 50 mg tablet 50 mg PO TID 2 days #6 tabs 12/23/24 12/28/24 Rx acetaminophen 325 mg capsule 650 mg PO Q4H PRN pain 12/28/24 Unknown History acetaminophen 500 mg tablet 1,000 mg PO Q8H PRN pain 12/28/24 Unknown History acetaminophen 650 mg rectal 650 mg AR Q4H PRN fever or pain 12/28/24 Unknown History suppository albuterol sulfate 2.5 mg/3 mL 2.5 mg inhalation BID COPD 12/28/24 Unknown History (0.083 %) solution for nebulization bisacodyl 10 mg rectal suppository 10 mg AR DAILY PRN constipation 12/28/24 Unknown History glucagon 1 mg solution for 1 mg IM Q20M PRN hypoglycemia 12/28/24 Unknown History injection (Glucagon Emergency Kit) magnesium hydroxide 400 mg/5 mL 30 ml PO PRN CONSTIPATION 12/28/24 Unknown History oral suspension (Montanez Milk of Magnesia) melatonin 5 mg capsule 10 mg PO QHS PRN insomnia 12/28/24 Unknown History Allergy/AdvReac Type Severity Reaction Status Date / Time diphenhydramine (From Allergy hyper Verified 12/28/24 14:27 Benadryl) Family History Father Cancer Other Hypertension Surgical History History of total left knee replacement (~03/2021) Hx of tooth extraction Hx of elbow surgery Hx of shoulder surgery Hx of foot surgery Hx of right knee surgery (~2008) History of carpal tunnel release of both wrists H/O cervical spine surgery Social History household members: none Smoking Status: Former smoker alcohol intake: former substance use type: does not use ROS Constitutional Constitutional: Denies chills or fever(s) Eyes Eyes: Denies blurry vision ENT HEENT: Denies abnormal hearing Cardiovascular Cardiovascular: Denies chest pain Respiratory/Chest Respiratory/Chest: Denies shortness of breath at rest Gastrointestinal Gastrointestinal: Denies abdominal pain Musculoskeletal Musculoskeletal: Reports extremity pain, muscle weakness and neck pain Integumentary Integumentary: Denies dry skin Neurologic Neurologic: Denies abnormal speech or confusion Psychiatric Psychiatric: Denies anxiety Endocrine Endocrinology: Denies cold intolerance Vital Signs Vital Signs Vital Signs: 12/28/24 14:27 12/28/24 15:26 12/28/24 16:00 Temperature 97.3 F L Temperature Source Temporal Pulse Rate 69 80 78 Respiratory Rate 20 H 20 H 26 H Blood Pressure 139/73 H 133/63 H 129/68 H Blood Pressure Mean 95 86 88 Pulse Ox 96 97 95 Oxygen Delivery Method Room Air Room Air 12/28/24 18:18 12/28/24 19:00 12/28/24 20:00 Temperature Temperature Source Pulse Rate 78 79 91 Respiratory Rate 22 H 20 H 22 H Blood Pressure 148/78 H 146/85 H 129/80 H Blood Pressure Mean 101 105 96 Pulse Ox 98 95 97 Oxygen Delivery Method Room Air Room Air 12/28/24 20:24 Temperature 97.9 F Temperature Source Pulse Rate 100 Respiratory Rate 18 Blood Pressure 138/78 H Blood Pressure Mean 98 Pulse Ox 97 Oxygen Delivery Method Weight Weight: 192 lb 0.362 oz Body Mass Index (BMI) 30.0 Physical Exam Const alert and oriented x3 General Appearance: cooperative and well developed HEENT normocephalic HEENT Narrative: Immobilized in c-collar surgical site with dressing on. Eyes PERRL and EOMs intact bilaterally Neck no lymphadenopathy Lymph Lymphatic: no lymphadenopathy noted Resp normal respiratory effort, normal air movement and clear to auscultation bilaterally Cardio regular rate, regular rhythm, S1 normal heart sound and S2 normal heart sound GI normal to inspection, nondistended, normoactive bowel sounds Extremity normal capillary refill Skin General Skin Exam: no breakdown Neuro Neuro Narrative: 4/ 5 strength bilateral upper extremity, 3/ 5 right lower extremity, 5/5 left lower extremity Speech: speech normal Motor Exam: general weakness Psych thought process normal, cooperative and affect normal Results Lab / Micro Data 12/28/24 14:44 12/28/24 14:44 Labs: Laboratory Results - last 24 hr 12/28/24 14:44: WBC 7.9, RBC 5.11, Hgb 15.0, Hct 45.2, MCV 88.5, MCH 29.4, MCHC 33.2, RDW Std Deviation 41.6, RDW Coeff of Jamie 12.8, Plt Count 256, MPV 9.5, Immature Gran % (Auto) 0.400, Neut % (Auto) 75.9 H, Lymph % (Auto) 8.6 L, [place] % (Auto) 11.5 H, Eos % (Auto) 3.2, Baso % (Auto) 0.4, Absolute Neuts (auto) 6.0, Absolute Lymphs (auto) 0.68 L, Nucleated RBC % 0, Sodium 131 L, Potassium 4.2, Chloride 96 L, Carbon Dioxide 22.6, Anion Gap 12, BUN 23 H, Creatinine 0.85, Estim Creat Clear Calc 90.08, Est GFR (MDRD) Non-Af 96, BUN/Creatinine Ratio 26.9 H, Glucose 122 H, Calcium 10.0 Imaging Radiology Impression Cervical Spine MRI 12/28/24 15:14 IMPRESSION: Mild improvement in spinal stenosis at C3-4 status post surgery with removal of inferior hardware. Persistent moderate canal narrowing and again noted is myelomalacia. There is no pathologic enhancement. Reading Location: [facility] Assessment & Plan Assessment/Plan (1) History of cervical spinal surgery: (2) Weakness: (3) Status post cervical spinal fusion: (4) COPD (chronic obstructive pulmonary disease): (5) GERD (gastroesophageal reflux disease): (6) Hyperlipidemia, unspecified: (7) Essential (primary) hypertension: PLAN: Plan 1 status post cervical spinal fusion with postoperative weakness?admit patient to general medical floor, consult Dr. Méndez surgeon, consult physical therapy to evaluate and treat patient. Will add Dilaudid 1 mg IV every 3 hours as needed for severe pain, and Tylenol 650 p.o. every 6 hours as needed moderate pain. 2. COPD?continue routine inhalation medication stable at this time 3. GERD?continue proton pump inhibitor 4. Hyperlipidemia?continue statin medication 5. Hypertension?continue routine home medications controlled at this time 6. DVT prophylaxis?low molecular weight heparin 7. CODE STATUS full verified Charges/Coding Visit Charges Inpatient E&M: 38005 Init Hosp L2
[2024-12-28] MEDS: MELATONIN 10 MG TABLET PO (22:16)
[2024-12-28] MEDS: HYDROcodone Bitartrate/Apap 5/325 Tablet PO (23:20)
[2024-12-28] MEDS: 0.9% Saline Lock 10 ML Syringe IV (23:23)
[2024-12-29 04:02] VITALS: BP 125/62; PULSE 92; RESP 20; TEMP 36.4; O2SAT 93
[2024-12-29 06:42] LABS: Hematocrit 49.2 % (40-54); Hemoglobin 16.0 g/dL (13.0-16.5); Immature Granulocytes Count 0.040 X10^3/uL (0.0-0.0); Mean Corp Hgb Conc 32.5 g/dL (32-36); Mean Corpuscular Volume 89.3 fL (80-94); Mean Platelet Vol. 9.0 fl (6.2-12.0); NRBC Flagged by Analyzer 0 % (0-5); POSITIVE DIFFERENTIAL YES; Platelet Count 203 K/mm3 (150-450); RBC Distribution Width CV 12.9 % (11.6-14.6); RBC Distribution Width SD 42.4 fl (35.1-43.9); Red Blood Count 5.51 M/mm3 (4.6-6.2); White Blood Count 10.8 K/mm3 (4.4-11.0)
[2024-12-29] MEDS: Budesonide Respules 0.5 MG/2 ML AMPUL.NEB. INHALATION (06:59)
[2024-12-29] MEDS: Albuterol 2.5 MG/3 ML VIAL.NEB. INHALATION ×2 (06:59→13:08)
[2024-12-29 07:05] VITALS: PULSE 105; RESP 16
[2024-12-29 07:17] LABS: Anion Gap 10 (5-15); BUN 22 mg/dL (4-19); BUN/Creat Ratio 25.6 RATIO (10-20); Calcium,Total 9.7 mg/dL (7.6-11.0); Carbon Dioxide 25.9 mmol/L (21.0-32.0); Chloride 97 mmol/L (98-108); Estimated Creatinine Clearance 88.06 ml/min (50-250); Glucose 99 mg/dL (70-99); Potassium 4.7 mmol/L (3.3-5.1)
[2024-12-29 08:05] VITALS: BP 109/67; PULSE 104; RESP 17; TEMP 36.7; O2SAT 93
--- NOTE | 2024-12-29 08:10 | CT_ITS ---
PROCEDURE: CT/Spine Cervical without Contras
--- NOTE | 2024-12-29 08:54 | CASEMGMT ---
Discharge Planning A list of?SNF providers including quality and resource use data and consistent with the patient's preferred geographic region (50 miles), medical needs, and insurance network was created in [employer] Guide.? This list was provided to the HEIDY. Judith Salazar Discharge Planning Asst
[2024-12-29] MEDS: Senna/Docusate Sodium 1 Tablet PO (08:59)
[2024-12-29] MEDS: FLU VACCINE HIGH DOSE 25-26(65YR UP) 180 MCG/0.5 ML SYRINGE IM (09:16)
--- NOTE | 2024-12-29 10:07 | PN.HOSP_ITS ---
Reason for Visit
--- NOTE | 2024-12-29 10:07 | PCM.PN.HOSP ---
Reason for Visit Chief Complaint: Decreased strength and sensation bilateral upper extremity Objective Data Objective Data Vital Signs: Vital Signs Temp Pulse Resp BP Pulse Ox O2 Del Method 98.1 F 104 H 17 109/67 93 Room Air 12/29/24 08:05 12/29/24 08:05 12/29/24 08:05 12/29/24 08:05 12/29/24 08:05 12/29/24 08:05 Oxygen Delivery Method Room Air Weight: 182 lb 12.8 oz Body Mass Index (BMI) 28.6 Intake & Output: Intake and Output for Last 24 Hours 12/27/24 12/28/24 12/29/24 23:59 23:59 23:59 Intake Total 200 / 200 100 / 100 Output Total 700 / 700 Balance 200 / 200 -600 / -600 Lab / Micro Data 12/29/24 06:12 12/29/24 06:12 Labs: Laboratory Results - last 24 hr 12/28/24 14:44: WBC 7.9, RBC 5.11, Hgb 15.0, Hct 45.2, MCV 88.5, MCH 29.4, MCHC 33.2, RDW Std Deviation 41.6, RDW Coeff of Jamie 12.8, Plt Count 256, MPV 9.5, Immature Gran % (Auto) 0.400, Neut % (Auto) 75.9 H, Lymph % (Auto) 8.6 L, [place] % (Auto) 11.5 H, Eos % (Auto) 3.2, Baso % (Auto) 0.4, Absolute Neuts (auto) 6.0, Absolute Lymphs (auto) 0.68 L, Nucleated RBC % 0, Sodium 131 L, Potassium 4.2, Chloride 96 L, Carbon Dioxide 22.6, Anion Gap 12, BUN 23 H, Creatinine 0.85, Estim Creat Clear Calc 90.08, Est GFR (MDRD) Non-Af 96, BUN/Creatinine Ratio 26.9 H, Glucose 122 H, Calcium 10.0 12/29/24 06:12: WBC 10.8, RBC 5.51, Hgb 16.0, Hct 49.2, MCV 89.3, MCH 29.0, MCHC 32.5, RDW Std Deviation 42.4, RDW Coeff of Jamie 12.9, Plt Count 203, MPV 9.0, Immature Gran % (Auto) 0.400, Neut % (Auto) 88.6 H, Lymph % (Auto) 2.9 L, [place] % (Auto) 6.8, Eos % (Auto) 1.0, Baso % (Auto) 0.3, Absolute Neuts (auto) 9.6 H, Absolute Lymphs (auto) 0.31 L, Nucleated RBC % 0, Sodium 133, Potassium 4.7, Chloride 97 L, Carbon Dioxide 25.9, Anion Gap 10, BUN 22 H, Creatinine 0.85, Estim Creat Clear Calc 88.06, Est GFR (MDRD) Non-Af 96, BUN/Creatinine Ratio 25.6 H, Glucose 99, Calcium 9.7 Radiography Diagnostic Testing: Radiology Impression Cervical Spine MRI 12/28/24 15:14 IMPRESSION: Mild improvement in spinal stenosis at C3-4 status post surgery with removal of inferior hardware. Persistent moderate canal narrowing and again noted is myelomalacia. There is no pathologic enhancement. Reading Location: [facility] Cervical Spine CT 12/29/24 08:10 IMPRESSION: Status post anterior fusion at the C3-C4 level and prosthetic disc placement. Grade 1 anterior listhesis of C3 on C4. Multilevel facet joint osteoarthritis and hypertrophy with uncovertebral arthrosis and neural foraminal stenosis more prominent on the right side. Reading Location: [facility] Physical Exam Narrative Seen and examined. Patient had C3-C4 ACDF, removal of previous C4-5 anterior instrumentation on 12/21/2024. Complain of weakness of bilateral shoulder right more than left after initial improvement in first 2 days after surgery. He also had initial improvement of chronic lower extremity weakness right more than left for 2 days and then weak again. Decreased sensation/numbness on bilateral upper extremity right more than left Physical exam General: Alert, Oriented x3, Cooperative HEENT: Atraumatic, PERRLA, EOMI, Normocephalic. Oral: No Gingival or Mucosal Lesions/ Ulcerations Neck: Supple, No JVD, Negative Carotid Bruits Chest wall/Lungs: Air entry diminished in bilateral lung bases. No crepitation/rhonchi Cardiovascular: Regular rate and rhythm, Normal S1,S2, No M/G/R Abdomen: Bowel Sounds Present, Soft, Non Tender, Non-Distended : No dysuria. No renal angle tenderness. No suprapubic tenderness. Extremities: No edema, Capillary Refill Less than 3 Seconds Skin: No rashes, No breakdown Musculoskeletal: Bilateral shoulder weakness, right more than left, power 4/5 on right shoulder, left 4+/5., Weakness of right hip knee and ankle joint more than corresponding left joints. Neurological: Cranial nerves II-XII grossly intact, DTR 2/4. Decreased sensation on right arm than left. Psych/Mental Status: Normal Affect, Appropriate. Assessment & Plan Assessment/Plan (1) History of cervical spinal surgery: (2) Weakness: (3) Status post cervical spinal fusion: (4) COPD (chronic obstructive pulmonary disease): (5) GERD (gastroesophageal reflux disease): (6) Hyperlipidemia, unspecified: (7) Essential (primary) hypertension: PLAN: Plan This is a 64 old gentleman being admitted for bilateral shoulder and lower extremity weakness with initial improvement after recent ACDF of C3-C4 1. Chronic C3-4 spinal listhesis, severe spinal stenosis with myelopathy, cord compression, cord signal changes, prior C4?6 fusion:Patient had C3-C4 ACDF/anterior cervical discectomy and fusion, removal of previous C4-5 anterior instrumentation on 12/21/2024. Patient has weakness of bilateral shoulder right more than left after initial improvement in first 2 days after surgery. He also had initial improvement of chronic lower extremity weakness right more than left for 2 days and then weak ri again. Decreased sensation/numbness on bilateral upper extremity right more than left. Discussed with Dr. Méndez. Cervical spine MRI shows improvement in spinal stenosis C3-4 status post surgery with removal of inferior hardware. Persistent moderate canal narrowing and myelomalacia. No pathologic enhancement. Cervical spine CT shows similar features with grade 1 anterior listhesis of C3 on C4. Multilevel facet joint osteoarthritis and hypertrophy. Neuroforaminal more prominent on right side Pain control. Rest as by spine surgeon 2. COPD?no acute exacerbation continue routine inhalation. Continue incentive spirometry and PEP for 1 week 3. GERD?continue proton pump inhibitor 4. Hyperlipidemia?continue statin medication 5. Hypertension?continue routine home medications controlled at this time 6. DVT prophylaxis?low molecular weight heparin 7. CODE STATUS full verified Clinical Impression(s) from Imaging Studies Cervical Spine MRI 12/28/24 15:14 IMPRESSION: Mild improvement in spinal stenosis at C3-4 status post surgery with removal of inferior hardware. Persistent moderate canal narrowing and again noted is myelomalacia. There is no pathologic enhancement. Cervical Spine CT 12/29/24 08:10 IMPRESSION: Status post anterior fusion at the C3-C4 level and prosthetic disc placement. Grade 1 anterior listhesis of C3 on C4. Multilevel facet joint osteoarthritis and hypertrophy with uncovertebral arthrosis and neural foraminal stenosis more prominent on the right side. Laboratory Results 12/28/24 14:44: Sodium 131 L, Potassium 4.2, Chloride 96 L, Carbon Dioxide 22.6, Anion Gap 12, BUN 23 H, Creatinine 0.85, Estim Creat Clear Calc 90.08, Est GFR (MDRD) Non-Af 96, BUN/Creatinine Ratio 26.9 H, Glucose 122 H, Calcium 10.0 12/29/24 06:12: WBC 10.8, RBC 5.51, Hgb 16.0, Hct 49.2, MCV 89.3, MCH 29.0, MCHC 32.5, RDW Std Deviation 42.4, RDW Coeff of Jamie 12.9, Plt Count 203, MPV 9.0, Immature Gran % (Auto) 0.400, Neut % (Auto) 88.6 H, Lymph % (Auto) 2.9 L, [place] % (Auto) 6.8, Eos % (Auto) 1.0, Baso % (Auto) 0.3, Absolute Neuts (auto) 9.6 H, Absolute Lymphs (auto) 0.31 L, Nucleated RBC % 0, Sodium 133, Potassium 4.7, Chloride 97 L, Carbon Dioxide 25.9, Anion Gap 10, BUN 22 H, Creatinine 0.85, Estim Creat Clear Calc 88.06, Est GFR (MDRD) Non-Af 96, BUN/Creatinine Ratio 25.6 H, Glucose 99, Calcium 9.7 Charges/Coding Visit Charges Inpatient E&M: 73047 Subs Hosp L2
[2024-12-29] MEDS: HYDROcodone Bitartrate/Apap 5/325 Tablet PO ×2 (11:22→18:27)
[2024-12-29 13:08] VITALS: PULSE 91; RESP 16
[2024-12-29 14:10] VITALS: BP 120/71; PULSE 100; RESP 18; TEMP 36.6; O2SAT 95
--- NOTE | 2024-12-29 14:41 | CASEMGMT ---
MONTY CM into pt room, pt dtr present. Pt and dtr state they are working on a list of options for pt. They will have a list for in the morning. MONTY METZ to check back. Pt requests to complete OPAL application, updated SW.
--- NOTE | 2024-12-29 15:57 | CONS.ORTHO ---
HPI Consult Data Date of Consult: 12/29/24 HPI Narrative Reason for Consultation: Progressive weakness, persistent cervical stenosis HPI Narrative: TOYA SOUSA, is a 64 M who presents with progressive worsening weakness in right more than left upper and lower extremities. Patient is known to me as he underwent C4-5 hardware removal, C3-4 ACDF about a week ago for severe progressive myelopathy. Patient did well after surgery and had good improvement of his weakness and then was able to ambulate with the help of a walker. He was discharged to rehab, however at the rehab he started to deteriorate as he felt that he did not get the physical therapy that he anticipated. He was less and less removal over the next few days and started noticing that he is unable to walk anymore over the last 3 days. He reports that the weakness is now worse than what it was before this ACDF surgery last week. He is unable to use the right upper extremity for a while for eating, and is unable to stand and walk because of worsening right lower extremity weakness. He denies any injury since surgery. He does mention of pain in the neck as well as back and right hip. Patient has been at [facility] for rehabilitation but feels he has not been getting physical therapy as was recommended there. Repeat MRI imaging was done here in the emergency room and found to be stable with no worsening pathologic findings. Patient denies any chest pain, shortness of breath, fevers or chills, nausea vomiting or diarrhea. PMH: Wears partial dentures Wears glasses Alcohol use History of steroid therapy Arthritis High cholesterol Injury of back Injury of head and neck Gastric reflux Former smoker CPAP (continuous positive airway pressure) dependence Sleep apnea COPD (chronic obstructive pulmonary disease) Asthma Leg cramps History of stress test History of echocardiogram History of irregular heartbeat Hx of esophageal varices Esophageal cancer High cholesterol Hypertension [facility] Medical History Wears partial dentures Wears glasses Alcohol use History of steroid therapy Arthritis High cholesterol Injury of back Injury of head and neck Gastric reflux Former smoker CPAP (continuous positive airway pressure) dependence Sleep apnea COPD (chronic obstructive pulmonary disease) Asthma Leg cramps History of stress test History of echocardiogram History of irregular heartbeat Hx of esophageal varices Esophageal cancer High cholesterol Hypertension Home Medications ?Medication ?Instructions ?Recorded ?Last Taken ?Type aspirin 81 mg capsule 81 mg PO DAILY heart health 12/28/21 07/11/25 History atorvastatin 20 mg tablet (Lipitor) 20 mg PO DAILY Hyperlipidemia 09/18/24 09/17/24 History budesonide-formoterol HFA 160 1 puff inhalation BID PRN COPD 12/16/24 Unknown History mcg-4.5 mcg/actuation aerosol inhaler (Symbicort) cetirizine 10 mg tablet 10 mg PO QDAY allergies 12/16/24 Unknown History omeprazole 20 mg capsule,delayed 20 mg PO QDAY GERD 12/16/24 Unknown History release baclofen 5 mg tablet 5 mg PO TID chronic pain 12/17/24 Unknown History amlodipine 5 mg tablet 5 mg PO DAILY hypertension #90 tabs 12/23/24 Unknown Rx enoxaparin 40 mg/0.4 mL 40 mg (0.4 mL) subcut DAILY 30 12/23/24 Unknown Rx subcutaneous syringe days #0 mL losartan 25 mg tablet 25 mg PO BID hypertension 90 days 12/23/24 Unknown Rx #180 tabs meloxicam 15 mg tablet 15 mg PO DAILY chronic pain #0 tabs 12/23/24 Unknown Rx sennosides 8.6 mg-docusate sodium 1 tab PO DAILY constipation #0 tabs 12/23/24 Unknown Rx 50 mg tablet (Stimulant Laxative Plus) tramadol 50 mg tablet 50 mg PO TID 2 days #6 tabs 12/23/24 12/28/24 Rx acetaminophen 325 mg capsule 650 mg PO Q4H PRN pain or fever 12/28/24 Unknown History acetaminophen 500 mg tablet 1,000 mg PO Q8H PRN pain 12/28/24 Unknown History acetaminophen 650 mg rectal 650 mg MI Q4H PRN fever or pain 12/28/24 Unknown History suppository albuterol sulfate 2.5 mg/3 mL 2.5 mg inhalation BID COPD 12/28/24 Unknown History (0.083 %) solution for nebulization bisacodyl 10 mg rectal suppository 10 mg MI DAILY PRN constipation 12/28/24 Unknown History glucagon 1 mg solution for 1 mg IM Q20M PRN hypoglycemia 12/28/24 Unknown History injection (Glucagon Emergency Kit) magnesium hydroxide 400 mg/5 mL 30 ml PO PRN CONSTIPATION 12/28/24 Unknown History oral suspension (Montanez Milk of Magnesia) melatonin 5 mg capsule 10 mg PO QHS PRN insomnia 12/28/24 Unknown History aluminum-magnesium hydroxide 225 30 ml PO Q4H PRN GI distress 12/29/24 Unknown History mg-200 mg/5 mL oral suspension guaifenesin 100 mg/5 mL oral liquid 200 mg PO Q4H PRN PRN cough, 12/29/24 Unknown History congestion hydrocodone-acetaminophen 5-325mg 1 tab PO Q6H PRN acute pain 12/29/24 Unknown History 5mg-325mg methocarbamol 500 mg tablet 500 mg PO TID muscle relaxant 12/29/24 Unknown History Allergy/AdvReac Type Severity Reaction Status Date / Time diphenhydramine (From Allergy hyper Verified 12/28/24 14:27 Benadryl) Family History Father Cancer Other Hypertension Surgical History History of total left knee replacement (~03/2021) Hx of tooth extraction Hx of elbow surgery Hx of shoulder surgery Hx of foot surgery Hx of right knee surgery (~2008) History of carpal tunnel release of both wrists H/O cervical spine surgery Social History household members: none Smoking Status: Former smoker alcohol intake: former substance use type: does not use Vital Signs Vital Signs Vital Signs: 12/28/24 16:00 12/28/24 18:18 12/28/24 19:00 Temperature Temperature Source Pulse Rate 78 78 79 Pulse Strength Respiratory Rate 26 H 22 H 20 H Respiratory Effort Respiratory Depth Respiratory Pattern Blood Pressure 129/68 H 148/78 H 146/85 H Blood Pressure Mean 88 101 105 Blood Pressure Source Blood Pressure Position Blood Pressure Location Pulse Ox 95 98 95 Oxygen Delivery Method Room Air Room Air 12/28/24 20:00 12/28/24 20:24 12/28/24 21:00 Temperature 97.9 F Temperature Source Pulse Rate 91 100 104 H Pulse Strength Respiratory Rate 22 H 18 18 Respiratory Effort Respiratory Depth Respiratory Pattern Blood Pressure 129/80 H 138/78 H 148/71 H Blood Pressure Mean 96 98 96 Blood Pressure Source Blood Pressure Position Blood Pressure Location Pulse Ox 97 97 97 Oxygen Delivery Method Room Air 12/28/24 21:50 12/28/24 23:17 12/28/24 23:27 Temperature 98.2 F 97.9 F Temperature Source Oral Oral Pulse Rate 86 88 Pulse Strength Respiratory Rate 18 16 Respiratory Effort Normal Non-Labored Respiratory Depth Normal Respiratory Pattern Normal Blood Pressure 153/82 H 130/71 H Blood Pressure Mean 105 90 Blood Pressure Source Monitor Monitor Blood Pressure Position Semi-Fowlers Semi-Fowlers Blood Pressure Location Right Arm Right Arm Pulse Ox 97 95 Oxygen Delivery Method Room Air Room Air Room Air 12/29/24 04:02 12/29/24 07:05 12/29/24 08:05 Temperature 97.6 F L 98.1 F Temperature Source Oral Oral Pulse Rate 92 105 H 104 H Pulse Strength Respiratory Rate 20 H 16 17 Respiratory Effort Respiratory Depth Respiratory Pattern Normal Blood Pressure 125/62 H 109/67 Blood Pressure Mean 83 81 Blood Pressure Source Monitor Monitor Blood Pressure Position Semi-Fowlers Semi-Fowlers Blood Pressure Location Right Arm Right Arm Pulse Ox 93 93 Oxygen Delivery Method Room Air Room Air 12/29/24 08:05 12/29/24 08:05 12/29/24 13:08 Temperature Temperature Source Pulse Rate 104 H 91 Pulse Strength Normal (2+) Respiratory Rate 16 Respiratory Effort Normal Non-Labored Respiratory Depth Normal Respiratory Pattern Normal Normal Blood Pressure Blood Pressure Mean Blood Pressure Source Blood Pressure Position Blood Pressure Location Pulse Ox Oxygen Delivery Method Room Air 12/29/24 13:46 12/29/24 14:10 Temperature 98 F Temperature Source Oral Pulse Rate 100 Pulse Strength Respiratory Rate 18 Respiratory Effort Normal Non-Labored Respiratory Depth Normal Respiratory Pattern Normal Blood Pressure 120/71 Blood Pressure Mean 87 Blood Pressure Source Monitor Blood Pressure Position Sitting Blood Pressure Location Left Arm Pulse Ox 95 Oxygen Delivery Method Room Air Room Air Weight Weight: 182 lb 12.8 oz Body Mass Index (BMI) 28.6 Physical Exam Narrative Exam to the anterior neck shows incision clean and dry with Steri-Strips on. Neurologic evaluation shows grade 3 power in right upper and right lower extremities, grade 4 and left upper and left lower extremities. Oni's positive bilaterally. Right hip flexion is grade 0. There is significant hyperreflexia and hypertonia in lower extremities. Lab / Micro Data 12/29/24 06:12 12/29/24 06:12 Labs: Laboratory Results - last 24 hr 12/28/24 14:44: Sodium 131 L, Potassium 4.2, Chloride 96 L, Carbon Dioxide 22.6, Anion Gap 12, BUN 23 H, Creatinine 0.85, Estim Creat Clear Calc 90.08, Est GFR (MDRD) Non-Af 96, BUN/Creatinine Ratio 26.9 H, Glucose 122 H, Calcium 10.0 12/29/24 06:12: WBC 10.8, RBC 5.51, Hgb 16.0, Hct 49.2, MCV 89.3, MCH 29.0, MCHC 32.5, RDW Std Deviation 42.4, RDW Coeff of Jamie 12.9, Plt Count 203, MPV 9.0, Immature Gran % (Auto) 0.400, Neut % (Auto) 88.6 H, Lymph % (Auto) 2.9 L, [place] % (Auto) 6.8, Eos % (Auto) 1.0, Baso % (Auto) 0.3, Absolute Neuts (auto) 9.6 H, Absolute Lymphs (auto) 0.31 L, Nucleated RBC % 0, Sodium 133, Potassium 4.7, Chloride 97 L, Carbon Dioxide 25.9, Anion Gap 10, BUN 22 H, Creatinine 0.85, Estim Creat Clear Calc 88.06, Est GFR (MDRD) Non-Af 96, BUN/Creatinine Ratio 25.6 H, Glucose 99, Calcium 9.7 Imaging Radiology Impression Cervical Spine MRI 12/28/24 15:14 IMPRESSION: Mild improvement in spinal stenosis at C3-4 status post surgery with removal of inferior hardware. Persistent moderate canal narrowing and again noted is myelomalacia. There is no pathologic enhancement. Reading Location: [facility] Cervical Spine CT 12/29/24 08:10 IMPRESSION: Status post anterior fusion at the C3-C4 level and prosthetic disc placement. Grade 1 anterior listhesis of C3 on C4. Multilevel facet joint osteoarthritis and hypertrophy with uncovertebral arthrosis and neural foraminal stenosis more prominent on the right side. Reading Location: [facility] Assessment & Plan Assessment/Plan (1) Cervical myelopathy: (2) Status post cervical spinal fusion: PLAN: Plan Repeat MRI of cervical spine was reviewed. I also obtained urgent CT cervical spine this morning. These show C3-4 ACDF, and removed previous C4-5 hardware in stable position. There is residual spondylolisthesis which is unchanged compared to postop day 1 x-rays. No hardware loosening or subsidence noticed on the CT. MRI does show residual stenosis from ligamentum flavum hypertrophy with cord signal changes similar to preoperative MRI, with stenosis somewhat better, but still shows significant cord impingement. Explained to the patient the imaging findings in detail. Patient has stable fixation at C3-4 which is unchanged from postop day 1 without any significant subsidence or hardware failure. Although it is likely that the ligamentum flavum hypertrophy will flatten out once the fusion solidifies at C3-4, this may take months, and with his progressive loss of weakness I suspect that he may have permanent loss of ability to walk and use right upper extremity. In light of this, I recommend posterior cervical decompression fusion from C3-5 to allow complete posterior and anterior decompression of the spinal cord in hopes of improving his weakness and halting the progression of the myelopathy. It is unclear as to why he deteriorated over the last 5 to 7 days in the absence of any trauma and in the absence of any hardware failure, but regardless due to significant functional loss, patient agrees that he would like to proceed with surgical intervention. I went over all the risks benefits and alternatives of the surgery. Surgery will be C3-5 posterior cervical decompression and fusion. The risks include but are not limited to infection, bleeding, hematoma formation, spinal cord injury, nerve root injury, need for further surgery, pseudoarthrosis, hardware failure, DVT, pulm embolism, pneumonia, atelectasis, persistent pain, persistent weakness and numbness, inability to walk, cardiopulmonary event, . Patient understands agrees to proceed with surgery. All questions were answered. Charges/Coding Visit Charges Inpatient E&M: 61271 Init Hosp L3
[2024-12-29 22:08] VITALS: BP 102/66; PULSE 80; RESP 20; TEMP 36.6; O2SAT 98
[2024-12-29] MEDS: 0.9% Saline Lock 10 ML Syringe IV (22:09)
[2024-12-29] MEDS: Senna/Docusate Sodium 1 Tablet 2 TABLET PO (22:12)
[2024-12-30] VITALS (7 sets, daily range): BP systolic 101–133; BP diastolic 62–84; PULSE 72–97; RESP 16–18; TEMP 36.2–36.8; O2SAT 94–100
[2024-12-30] MEDS: HYDROcodone Bitartrate/Apap 5/325 Tablet PO ×4 (00:37→20:36)
[2024-12-30] MEDS: Albuterol 2.5 MG/3 ML VIAL.NEB. INHALATION ×2 (07:12→19:57)
[2024-12-30] MEDS: Budesonide Respules 0.5 MG/2 ML AMPUL.NEB. INHALATION ×2 (07:12→19:57)
[2024-12-30 07:36] LABS: Hematocrit 44.1 % (40-54); Hemoglobin 14.7 g/dL (13.0-16.5); Immature Granulocytes Count 0.020 X10^3/uL (0.0-0.0); Mean Corp Hgb Conc 33.3 g/dL (32-36); Mean Corpuscular Volume 87.2 fL (80-94); Mean Platelet Vol. 9.1 fl (6.2-12.0); NRBC Flagged by Analyzer 0 % (0-5); Platelet Count 193 K/mm3 (150-450); RBC Distribution Width CV 13.0 % (11.6-14.6); RBC Distribution Width SD 41.0 fl (35.1-43.9); Red Blood Count 5.06 M/mm3 (4.6-6.2); White Blood Count 4.5 K/mm3 (4.4-11.0)
[2024-12-30] MEDS: 0.9% Saline Lock 10 ML Syringe IV ×2 (07:56→22:09)
[2024-12-30 08:13] LABS: Anion Gap 10 (5-15); BUN 21 mg/dL (4-19); BUN/Creat Ratio 33.5 RATIO (10-20); Calcium,Total 9.4 mg/dL (7.6-11.0); Carbon Dioxide 24.3 mmol/L (21.0-32.0); Chloride 98 mmol/L (98-108); Estimated Creatinine Clearance 93.56 ml/min (50-250); Glucose 94 mg/dL (70-99); Potassium 4.1 mmol/L (3.3-5.1)
[2024-12-30] MEDS: Senna/Docusate Sodium 1 Tablet 2 TABLET PO ×2 (09:39→22:13)
--- NOTE | 2024-12-30 10:35 | CASEMGMT ---
Addendum entered by Judith Salazar 12/30/24 11:20: [facility] has declined d/t pts clinical needs. Judith Salazar DC Planning Asst. Original Note: Discharge Planning Referral sent via [facility] to [facility]. Judith Salazar DC Planning Asst.
--- NOTE | 2024-12-30 11:21 | CASEMGMT ---
Addendum entered by Judith Salazar 12/30/24 14:38: [facility] has accepted. SW updated. [facility] notified that pt will not return. [id number] sent via [facility]Port to [facility]. SW updated. Judith Salazar DC Planning Asst. Original Note: Discharge Planning Referral sent via [facility] to [facility]. Judith Salazar DC Planning Asst.
--- NOTE | 2024-12-30 13:45 | PCM.PN.ORT ---
Subjective Subjective Patient had C3-C4 ACDF, removal of previous C4-5 anterior instrumentation on 12/21/2024. Complain of weakness of bilateral shoulder right more than left after initial improvement in first 2 days after surgery. He also had initial improvement of chronic lower extremity weakness right more than left for 2 days and then weak again. Decreased sensation/numbness on bilateral upper extremity right more than left. Patient also has been complaining of muscle spasms in his lower back and legs related to dystonia. Patient also reports that over the night he had a Bhakta catheter placed for retention. Patient reports that he continues to decrease each day with his strength and functional abilities. Patient says he is unable to feed himself due to being unable to hold a utensil. He denies any significant dysphagia. Objective Data Objective Data Vital Signs: Vital Signs Temp Pulse Resp BP Pulse Ox O2 Del Method 97.9 F 75 18 111/62 99 Room Air 12/30/24 07:55 12/30/24 07:55 12/30/24 07:55 12/30/24 07:55 12/30/24 07:55 12/30/24 08:00 Oxygen Delivery Method Room Air Weight: 182 lb 12.8 oz Body Mass Index (BMI) 28.6 Intake & Output: Intake and Output for Last 24 Hours 12/28/24 12/29/24 12/30/24 23:59 23:59 23:59 Intake Total 200 / 200 300 / 300 500 / 500 Output Total 1350 / 1350 1700 / 1700 Balance 200 / 200 -1050 / -1050 -1200 / -1200 Lab / Micro Data 12/30/24 07:00 12/30/24 07:00 Labs: Laboratory Results - last 24 hr 12/30/24 07:00: WBC 4.5, RBC 5.06, Hgb 14.7, Hct 44.1, MCV 87.2, MCH 29.1, MCHC 33.3, RDW Std Deviation 41.0, RDW Coeff of Jamie 13.0, Plt Count 193, MPV 9.1, Immature Gran % (Auto) 0.400, Neut % (Auto) 65.4, Lymph % (Auto) 14.3 L, [place] % (Auto) 14.6 H, Eos % (Auto) 4.9, Baso % (Auto) 0.4, Absolute Neuts (auto) 3.0, Absolute Lymphs (auto) 0.65 L, Nucleated RBC % 0, Sodium 132 L, Potassium 4.1, Chloride 98, Carbon Dioxide 24.3, Anion Gap 10, BUN 21 H, Creatinine 0.64 L, Estim Creat Clear Calc 93.56, Est GFR (MDRD) Non-Af 105, BUN/Creatinine Ratio 33.5 H, Glucose 94, Calcium 9.4 Radiography Diagnostic Testing: Cervical MRI 12/28/24 Mild improvement in spinal stenosis at C3-4 status post surgery with removal of inferior hardware. Persistent moderate canal narrowing and again noted is myelomalacia. There is no pathologic enhancement. Physical Exam Narrative The patient was very weak on neurological examination. Grade 4 [employer] strength, grade 3 finger abduction, grade 3 bilateral wrist extension, grade 3 biceps and triceps. Patient was wearing a cervical collar as directed. Const alert and oriented x3 Assessment & Plan Assessment/Plan (1) Status post cervical spinal fusion: (2) Cervical myelopathy: PLAN: Plan Repeat MRI of cervical spine was reviewed. I also obtained urgent CT cervical spine this morning. These show C3-4 ACDF, and removed previous C4-5 hardware in stable position. There is residual spondylolisthesis which is unchanged compared to postop day 1 x-rays. No hardware loosening or subsidence noticed on the CT. MRI does show residual stenosis from ligamentum flavum hypertrophy with cord signal changes similar to preoperative MRI, with stenosis somewhat better, but still shows significant cord impingement. Explained to the patient the imaging findings in detail. Patient has stable fixation at C3-4 which is unchanged from postop day 1 without any significant subsidence or hardware failure. Although it is likely that the ligamentum flavum hypertrophy will flatten out once the fusion solidifies at C3-4, this may take months, and with his progressive loss of weakness I suspect that he may have permanent loss of ability to walk and use right upper extremity. In light of this, I recommend posterior cervical decompression fusion from C3-5 to allow complete posterior and anterior decompression of the spinal cord in hopes of improving his weakness and halting the progression of the myelopathy. It is unclear as to why he deteriorated over the last 5 to 7 days in the absence of any trauma and in the absence of any hardware failure, but regardless due to significant functional loss, patient agrees that he would like to proceed with surgical intervention. I went over all the risks benefits and alternatives of the surgery. Surgery will be C3-5 posterior cervical decompression and fusion. The risks include but are not limited to infection, bleeding, hematoma formation, spinal cord injury, nerve root injury, need for further surgery, pseudoarthrosis, hardware failure, DVT, pulm embolism, pneumonia, atelectasis, persistent pain, persistent weakness and numbness, inability to walk, cardiopulmonary event, . Patient understands agrees to proceed with surgery. All questions were answered.
--- NOTE | 2024-12-30 14:25 | CASEMGMT ---
RN CM into pt room, pt is aware that [facility] has accepted him for care. Pt dtr Caitlin present in room.
--- NOTE | 2024-12-30 14:45 | CHAPLAIN ---
Type of Pastoral Visit _x__ Initial Visit ___ Follow-up Visit ___ On-call Visit ___ General Patient Visit ___ Spiritual Assessment ___ Family Conference ___ Bereavement ___ Rapid Response ___ Code Blue ___ Other (describe below) Pastoral Care Referral From _x__ Patient ___ Family ___ Nurse ___ Physician ___ Mig Tig Welder ___ Hand Potter ___ Other (describe below) Sacrament/Intervention _x__ Active listening ___ Anointing ___ Judaism ___ Bereavement ___ Communion ___ Tina exploration ___ ___ Life review _x__ Prayer ___ Reconciliation ___ Sacrament of Sick _x__ Supportive presence ___ Wedding ___ Other (describe below) Pastoral Comments patient was seen recently in a previous admission; 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
--- NOTE | 2024-12-30 17:41 | PN.HOSP_ITS ---
Reason for Visit
--- NOTE | 2024-12-30 17:41 | PCM.PN.HOSP ---
Reason for Visit Chief Complaint: Decreased strength and sensation bilateral upper extremity Objective Data Objective Data Vital Signs: Vital Signs Temp Pulse Resp BP Pulse Ox O2 Del Method 97.2 F L 97 17 101/64 99 Room Air 12/30/24 14:05 12/30/24 14:05 12/30/24 14:05 12/30/24 14:05 12/30/24 14:05 12/30/24 14:26 Oxygen Delivery Method Room Air Weight: 182 lb 12.8 oz Body Mass Index (BMI) 28.6 Intake & Output: Intake and Output for Last 24 Hours 12/28/24 12/29/24 12/30/24 23:59 23:59 23:59 Intake Total 200 / 200 300 / 300 500 / 500 Output Total 1350 / 1350 2250 / 2250 Balance 200 / 200 -1050 / -1050 -1750 / -1750 Lab / Micro Data 12/30/24 07:00 12/30/24 07:00 Labs: Laboratory Results - last 24 hr 12/30/24 07:00: WBC 4.5, RBC 5.06, Hgb 14.7, Hct 44.1, MCV 87.2, MCH 29.1, MCHC 33.3, RDW Std Deviation 41.0, RDW Coeff of Jamie 13.0, Plt Count 193, MPV 9.1, Immature Gran % (Auto) 0.400, Neut % (Auto) 65.4, Lymph % (Auto) 14.3 L, Lipscomb % (Auto) 14.6 H, Eos % (Auto) 4.9, Baso % (Auto) 0.4, Absolute Neuts (auto) 3.0, Absolute Lymphs (auto) 0.65 L, Nucleated RBC % 0, Sodium 132 L, Potassium 4.1, Chloride 98, Carbon Dioxide 24.3, Anion Gap 10, BUN 21 H, Creatinine 0.64 L, Estim Creat Clear Calc 93.56, Est GFR (MDRD) Non-Af 105, BUN/Creatinine Ratio 33.5 H, Glucose 94, Calcium 9.4 Physical Exam Narrative Seen and examined. Patient has slight improvement of right upper extremity abduction but not significant. Patient has right upper extremity weakness more than left with bilateral lower extremity weakness right more than left. Patient had C3-C4 ACDF, removal of previous C4-5 anterior instrumentation on 12/21/2024. Complain of weakness of bilateral shoulder right more than left after initial improvement in first 2 days after surgery. He also had initial improvement of chronic lower extremity weakness right more than left for 2 days and then weak again. Decreased sensation/numbness on bilateral upper extremity right more than left Physical exam General: Alert, Oriented x3, Cooperative HEENT: Atraumatic, PERRLA, EOMI, Normocephalic. Oral: No Gingival or Mucosal Lesions/ Ulcerations Neck: Supple, No JVD, Negative Carotid Bruits Chest wall/Lungs: Air entry diminished in bilateral lung bases. No crepitation/rhonchi Cardiovascular: Regular rate and rhythm, Normal S1,S2, No M/G/R Abdomen: Bowel Sounds Present, Soft, Non Tender, Non-Distended : No dysuria. No renal angle tenderness. No suprapubic tenderness. Extremities: No edema, Capillary Refill Less than 3 Seconds Skin: No rashes, No breakdown Musculoskeletal: Bilateral shoulder weakness, right more than left, power 4/5 on right shoulder, left 4+/5., Weakness of right hip knee and ankle joint more than corresponding left joints. Neurological: Cranial nerves II-XII grossly intact, DTR 2/4. Decreased sensation on right arm than left. Psych/Mental Status: Normal Affect, Appropriate. Assessment & Plan Assessment/Plan (1) History of cervical spinal surgery: (2) Weakness: (3) Status post cervical spinal fusion: (4) COPD (chronic obstructive pulmonary disease): (5) GERD (gastroesophageal reflux disease): (6) Hyperlipidemia, unspecified: (7) Essential (primary) hypertension: PLAN: Plan This is a 64 old gentleman being admitted for bilateral shoulder and lower extremity weakness with initial improvement after recent ACDF of C3-C4 1. Chronic C3-4 spinal listhesis, severe spinal stenosis with myelopathy, cord compression, cord signal changes, prior C4?6 fusion:Patient had C3-C4 ACDF/anterior cervical discectomy and fusion, removal of previous C4-5 anterior instrumentation on 12/21/2024. Patient has weakness of bilateral shoulder right more than left after initial improvement in first 2 days after surgery. He also had initial improvement of chronic lower extremity weakness right more than left for 2 days and then weak ri again. Decreased sensation/numbness on bilateral upper extremity right more than left. Discussed with Dr. Méndez. Cervical spine MRI shows improvement in spinal stenosis C3-4 status post surgery with removal of inferior hardware. Persistent moderate canal narrowing and myelomalacia. No pathologic enhancement. Cervical spine CT shows similar features with grade 1 anterior listhesis of C3 on C4. Multilevel facet joint osteoarthritis and hypertrophy. Neuroforaminal more prominent on right side Pain control. Rest as by spine surgeon 12/30: Discussed with orthopedic surgeon and plan for surgery tomorrow. Orthopedic follow-up reviewed. DVT prophylaxis was discontinued yesterday. 2. COPD?no acute exacerbation continue routine inhalation. Continue incentive spirometry and PEP for 1 week 3. GERD?continue proton pump inhibitor 4. Hyperlipidemia?continue statin medication 5. Hypertension?continue routine home medications controlled at this time 6. DVT prophylaxis?low molecular weight heparin 7. CODE STATUS full verified Clinical Impression(s) from Imaging Studies Cervical Spine MRI 12/28/24 15:14 IMPRESSION: Mild improvement in spinal stenosis at C3-4 status post surgery with removal of inferior hardware. Persistent moderate canal narrowing and again noted is myelomalacia. There is no pathologic enhancement. Cervical Spine CT 12/29/24 08:10 IMPRESSION: Status post anterior fusion at the C3-C4 level and prosthetic disc placement. Grade 1 anterior listhesis of C3 on C4. Multilevel facet joint osteoarthritis and hypertrophy with uncovertebral arthrosis and neural foraminal stenosis more prominent on the right side. Laboratory Results 12/28/24 14:44: Sodium 131 L, Potassium 4.2, Chloride 96 L, Carbon Dioxide 22.6, Anion Gap 12, BUN 23 H, Creatinine 0.85, Estim Creat Clear Calc 90.08, Est GFR (MDRD) Non-Af 96, BUN/Creatinine Ratio 26.9 H, Glucose 122 H, Calcium 10.0 12/29/24 06:12: WBC 10.8, RBC 5.51, Hgb 16.0, Hct 49.2, MCV 89.3, MCH 29.0, MCHC 32.5, RDW Std Deviation 42.4, RDW Coeff of Jamie 12.9, Plt Count 203, MPV 9.0, Immature Gran % (Auto) 0.400, Neut % (Auto) 88.6 H, Lymph % (Auto) 2.9 L, Lipscomb % (Auto) 6.8, Eos % (Auto) 1.0, Baso % (Auto) 0.3, Absolute Neuts (auto) 9.6 H, Absolute Lymphs (auto) 0.31 L, Nucleated RBC % 0, Sodium 133, Potassium 4.7, Chloride 97 L, Carbon Dioxide 25.9, Anion Gap 10, BUN 22 H, Creatinine 0.85, Estim Creat Clear Calc 88.06, Est GFR (MDRD) Non-Af 96, BUN/Creatinine Ratio 25.6 H, Glucose 99, Calcium 9.7 Charges/Coding Visit Charges Inpatient E&M: 52245 Subs Hosp L2
[2024-12-31] VITALS (19 sets, daily range): BP systolic 128–176; BP diastolic 61–94; PULSE 72–103; RESP 16–20; TEMP 36.1–37.1; O2SAT 94–100; BMI 28.6
[2024-12-31] MEDS: HYDROcodone Bitartrate/Apap 5/325 Tablet PO ×2 (02:31→20:10)
[2024-12-31 04:35] LABS: Hematocrit 43.2 % (40-54); Hemoglobin 14.1 g/dL (13.0-16.5); Immature Granulocytes Count 0.030 X10^3/uL (0.0-0.0); Mean Corp Hgb Conc 32.6 g/dL (32-36); Mean Corpuscular Volume 87.6 fL (80-94); Mean Platelet Vol. 9.1 fl (6.2-12.0); NRBC Flagged by Analyzer 0 % (0-5); Platelet Count 196 K/mm3 (150-450); RBC Distribution Width CV 12.9 % (11.6-14.6); RBC Distribution Width SD 41.4 fl (35.1-43.9); Red Blood Count 4.93 M/mm3 (4.6-6.2); White Blood Count 7.0 K/mm3 (4.4-11.0)
[2024-12-31 05:04] LABS: Anion Gap 11 (5-15); BUN 22 mg/dL (4-19); BUN/Creat Ratio 29.8 RATIO (10-20); Calcium,Total 9.4 mg/dL (7.6-11.0); Carbon Dioxide 24.4 mmol/L (21.0-32.0); Chloride 97 mmol/L (98-108); Estimated Creatinine Clearance 93.56 ml/min (50-250); Glucose 110 mg/dL (70-99); Potassium 4.3 mmol/L (3.3-5.1)
[2024-12-31] MEDS: 0.9% Saline Lock 10 ML Syringe IV ×2 (07:26→17:44)
[2024-12-31] MEDS: Budesonide Respules 0.5 MG/2 ML AMPUL.NEB. INHALATION ×2 (07:31→20:03)
[2024-12-31] MEDS: Albuterol 2.5 MG/3 ML VIAL.NEB. INHALATION ×2 (07:31→20:03)
--- NOTE | 2024-12-31 10:04 | HP.PCM_ITS ---
History and Physical
--- NOTE | 2024-12-31 10:04 | PCM.HP.BLA ---
History and Physical Patient was seen and reassessed. Discussed surgery details. Discussed all risk benefits and alternatives. Exam is unchanged with grade 3 power in right upper and right lower extremities, grade 4 on the left upper and left lower. Patient understands and agrees to proceed. Please see details in the previous notes for H&P.
--- NOTE | 2024-12-31 10:15 | RAD_ITS ---
PROCEDURE: RAD/Cerv Spine 2 or 3 Views
--- NOTE | 2024-12-31 10:17 | NURSING ---
pt to surgery
--- NOTE | 2024-12-31 10:32 | PCM.PRE.AN2 ---
ASA Classification* ASA Classification ASA Classification: 2 Assessment & Plan Anesthesia* Anesthesia Assessment Anesthesia Assessment: Discussed sedation and/or anesthesia options, risks, benefits, and alternatives with patient/parents/legal guardian/POA. Questions invited. The patient/parents/legal guardian/POA seems to understand and agrees to proceed with anesthesia plan. Reviewed the physical assessment, medical history, allergy history and patient home medications list prior to surgery/procedure/anesthetic and documented any changes. Performed airway and anesthesia risk assessments. Anesthesia Type Anesthesia Type: General History Source History Obtained from:: Patient and Chart Anesthesia Focused Assessment* Temperature: 98.2 F Pulse Rate: 72 Blood Pressure: 128/74 Respiratory Rate: 20 Pulse Ox: 98 Oxygen Delivery Method: Room Air Airway Assessment Mouth opens: >3 cm Mallampati Score: II Teeth Condition: Missing (Missing multiple teeth upper and lower) Neck Range of motion (ROM): Limited ROM (The patient is on neck collar since last neck surgery with Dr. Osborne. Patient states that he takes the next collar off while showers) Comment: We will maintain inline stabilization for airway securement Labs Anesthesia Preop lab: CBC WBC, (4.4-11.0) 7.0 K/mm3 Today, 04:20 RBC, (4.6-6.2) 4.93 M/mm3 Today, 04:20 Hgb, (13.0-16.5) 14.1 g/dL Today, 04:20 Hct, (40-54) 43.2 % Today, 04:20 Plt Count, (150-450) 196 K/mm3 Today, 04:20 CHEMISTRY Potassium, (3.3-5.1) 4.3 mmol/L Today, 04:20 Sodium, (133-145) 132 mmol/L L Today, 04:20 Magnesium, (1.5-2.2) 2.0 mg/dL 12/24/24, 05:00 BUN, (4-19) 22 mg/dL H Today, 04:20 Creatinine, (0.70-1.20) 0.74 mg/dL Today, 04:20 Glucose, (70-99) 110 mg/dL H Today, 04:20 POC Glucose, (70-110) 91 mg/dL 03/21/21, 06:20 TSH, (0.300-4.200) 0.516 uIU/mL 12/16/24, 15:39 COAG PT, (11.7-14.9) 13.7 SECONDS 12/16/24, 15:39 Pre-Assessment Diagnosis/Proposed Procedure Planned Operative Procedure(s): Posterior cervical decompression fusion, C3-5 Anesthesia History Anesthesia History - java integration developer: Anesthesia History - java integration developer Hx Hospitalization No 05/15/21 14:42 Any Problems With Anesthesia No 12/30/24 22:15 Cholinesterase deficiency No 12/30/24 22:15 You/Your Family Experience No 12/30/24 22:15 fever (hyperthermia) with Relationship Recent Exposure to Contagious No 12/30/24 22:15 Disease Does patient have nerve No 12/30/24 22:15 stimulator Patient instructed to have device shut off --Does patient have Pacemaker No 12/31/24 08:45 or ICD? When Was Last Pacemaker Check QUESTION #4 FULL TEXT: You/Your Family Experience fever (hyperthermia) with Anesthesia Last Oral Intake Last Oral intake: Last Oral Intake NPO since 00:00 12/31/24 08:45 Meds taken in AM with sips of No 12/31/24 08:45 water? Meds patient instructed to take am of surgery PONV PONV - java integration developer: PONV - java integration developer Female HX of Motion Sickness HX of N/V After Surgery Non-Smoker Duration of Surgery greater than 60 minutes Number of Risk Factors PONV Score Height & Weight Height & Weight: Anesthesia: Height & Weight Height 5 ft 7 in 12/31/24 08:45 Weight: 82.917 kg 12/31/24 08:45 Body Mass Index (BMI) 28.6 12/31/24 08:45 Respiratory Assessment Respiratory Assessment - java integration developer: Respiratory Tract Infection Hx - java integration developer Hx Respiratory Tract Infection No 12/30/24 22:15 STOP Sleep Apnea STOP Sleep Apnea - java integration developer: STOP Sleep Apnea - java integration developer Hx Hypertension Yes 12/29/24 11:42 Hx Sleep Apnea Yes 12/28/24 21:42 CPAP Yes: doesnt wear, ordered 12/28/24 21:42 BIPAP No 12/28/24 21:42 Do you snore loudly (louder than talking or can be heard Do you often feel tired/ fatigued/ sleepy during daytime? Has anyone observed you stop breathing during sleep? STOP Results Positive 12/28/24 21:42 QUESTION #5 FULL TEXT : Do you snore loudly (louder than talking or can be heard through closed doors)? Tobacco Use History Tobacco Use History - java integration developer: Tobacco Use History - java integration developer Tobacco Use Smoking Status Former smoker 12/28/24 21:42 Hx Tobacco Use No 12/28/24 21:42 Years Smoking Packs Smoked per Day Smoking Cessation Date was No - quit smoking greater 12/28/24 21:42 within the last 15 years than 15 years ago Hx Smoking Cessation Date 08/09/04 12/28/24 21:42 Hx Smoking Cessation No 12/28/24 21:42 Counseling Hematologic Medial History Hematologic Hx - java integration developer: Hematologic Medical Hx - training and documentation specialist Hx of Blood Transfusion No 12/28/24 21:42 Hx of Transfusion in last 3 No 12/28/24 21:42 Months Date of Last Transfusion (if within last 3 months) Ever experience any problems No 12/28/24 21:42 with transfusion(s)? Specify any problems Hx of Preganancy in last 3 N/A 12/28/24 21:42 Months Nurse Filling Out Transfusion TMELLOR 12/28/24 21:42 & Questions: Date: 12/28/24 12/28/24 21:42 Time: 21:44 12/28/24 21:42 Patient unable to answer at this time (ie. confused, unrespo /Reproduction History /Reproductive History - java integration developer: /Reproductive Hx- java integration developer Hx Now Gestational Age (in weeks): EDC: Hx Hx Para Hx Section SAB Active Medications Active Medications: Current Medications Generic Name Dose Route Start Last Admin Trade Name Freq PRN Reason Stop Dose Admin Acetaminophen 500 mg 12/28/24 22:10 12/28/24 23:20 Acetaminophen 500 Mg Tablet PO 500 mg Q6H PRN PRN Administration Pain 1-10 or Fever Hydrocodone Bitart/Acetaminophen 1 tablet 12/28/24 22:10 12/31/24 02:31 Hydrocodone Bitartrate/Apap 5/325 Tablet PO 1 tablet Q6H PRN PRN Administration Pain Score 6-10 or Pre PT/OT Albuterol Sulfate 2.5 mg 12/28/24 23:00 12/31/24 07:31 Albuterol 2.5 Mg/3 Ml Vial.Neb. INHALATION 2.5 mg Q6HWA.RT AZEEM Administration Amlodipine Besylate 5 mg 12/29/24 10:00 12/31/24 07:29 Amlodipine 5 Mg Tablet PO Not Given DAILY [facility] Protocol Aspirin 81 mg 12/29/24 08:00 12/31/24 07:29 Aspirin 81 Mg Tab.Chew PO Not Given BREAKFAST [facility] Atorvastatin Calcium 20 mg 12/28/24 22:00 12/30/24 22:13 Atorvastatin Calcium 20 Mg Tablet PO 20 mg QHS AZEEM Administration Baclofen 5 mg 12/28/24 22:00 12/31/24 05:02 Baclofen 10 Mg Tablet PO Not Given TID AZEEM Bisacodyl 10 mg 12/28/24 21:29 Bisacodyl 10 Mg Suppository RC DAILY PRN PRN CONSTIPATION Budesonide 0.5 mg 12/28/24 23:00 12/31/24 07:31 Budesonide Respules 0.5 Mg/2 Ml Ampul.Neb. INHALATION 0.5 mg Q12H.RT AZEEM Administration Calamine/Phenol 1 applic 12/30/24 22:00 12/31/24 07:29 Menthol/Lanolin/Calamine/Znox 113 Gm Tube TOPICAL Not Given TID [facility] Protocol Diazepam 2 mg 12/30/24 09:35 12/30/24 09:59 Diazepam 2 Mg Tablet PO 2 mg Q4H PRN Administration MUSCLE SPASM Hydromorphone HCl 1 mg 12/28/24 21:29 12/31/24 07:26 Hydromorphone 1 Mg/Ml Syringe IV 1 mg Q3H PRN PRN Administration Pain Score 6-10 Sodium Chloride 250 mls @ 15 mls/hr 12/28/24 21:30 IV .[id number] PRN Saline Flush Tranexamic Acid 1,000 mg/ 110 mls @ 660 mls/hr 12/31/24 10:30 Sodium Chloride IV 12/31/24 10:39 INTRAOP ONE Tranexamic Acid 1,000 mg/ 110 mls @ 660 mls/hr 12/31/24 10:30 Sodium Chloride IV 12/31/24 10:39 INTRAOP ONE Loratadine 10 mg 12/29/24 15:54 Loratadine 10 Mg Tablet PO DAILY PRN ALLERGIES Losartan Potassium 25 mg 12/28/24 22:00 12/31/24 07:29 Losartan Potassium 25 Mg Tablet PO Not Given BID [facility] Protocol Melatonin 10 mg 12/28/24 21:52 12/28/24 22:16 Melatonin 10 Mg Tablet PO 10 mg QHS PRN PRN Administration insomnia Meloxicam 15 mg 12/29/24 10:00 12/31/24 07:29 Meloxicam 15 Mg Tablet PO Not Given DAILY [facility] Senna/Docusate Sodium 2 tablet 12/29/24 22:00 12/31/24 07:30 Senna/Docusate Sodium 1 Tablet PO Not Given BID [facility] Sodium Chloride 10 - 40 ml 12/28/24 21:30 12/31/24 07:26 0.9% Saline Lock 10 Ml Syringe IV 10 ml UD PRN Administration SALINE FLUSH [facility] Medical History Wears partial dentures Wears glasses Alcohol use History of steroid therapy Arthritis High cholesterol Injury of back Injury of head and neck Gastric reflux Former smoker CPAP (continuous positive airway pressure) dependence Sleep apnea COPD (chronic obstructive pulmonary disease) Asthma Leg cramps History of stress test History of echocardiogram History of irregular heartbeat Hx of esophageal varices Esophageal cancer High cholesterol Hypertension Home Medications ?Medication ?Instructions ?Recorded ?Last Taken ?Type aspirin 81 mg capsule 81 mg PO DAILY heart health 03/07/21 09/18/24 History atorvastatin 20 mg tablet (Lipitor) 20 mg PO DAILY Hyperlipidemia 09/18/24 09/17/24 History budesonide-formoterol HFA 160 1 puff inhalation BID PRN COPD 12/16/24 Unknown History mcg-4.5 mcg/actuation aerosol inhaler (Symbicort) cetirizine 10 mg tablet 10 mg PO QDAY allergies 12/16/24 Unknown History omeprazole 20 mg capsule,delayed 20 mg PO QDAY GERD 12/16/24 Unknown History release baclofen 5 mg tablet 5 mg PO TID chronic pain 12/17/24 Unknown History amlodipine 5 mg tablet 5 mg PO DAILY hypertension #90 tabs 12/23/24 Unknown Rx enoxaparin 40 mg/0.4 mL 40 mg (0.4 mL) subcut DAILY 30 12/23/24 Unknown Rx subcutaneous syringe days #0 mL losartan 25 mg tablet 25 mg PO BID hypertension 90 days 12/23/24 Unknown Rx #180 tabs meloxicam 15 mg tablet 15 mg PO DAILY chronic pain #0 tabs 12/23/24 Unknown Rx sennosides 8.6 mg-docusate sodium 1 tab PO DAILY constipation #0 tabs 12/23/24 Unknown Rx 50 mg tablet (Stimulant Laxative Plus) tramadol 50 mg tablet 50 mg PO TID 2 days #6 tabs 12/23/24 12/28/24 Rx acetaminophen 325 mg capsule 650 mg PO Q4H PRN pain or fever 12/28/24 Unknown History acetaminophen 500 mg tablet 1,000 mg PO Q8H PRN pain 12/28/24 Unknown History acetaminophen 650 mg rectal 650 mg [place] Q4H PRN fever or pain 12/28/24 Unknown History suppository albuterol sulfate 2.5 mg/3 mL 2.5 mg inhalation BID COPD 12/28/24 Unknown History (0.083 %) solution for nebulization bisacodyl 10 mg rectal suppository 10 mg [place] DAILY PRN constipation 12/28/24 Unknown History glucagon 1 mg solution for 1 mg IM Q20M PRN hypoglycemia 12/28/24 Unknown History injection (Glucagon Emergency Kit) magnesium hydroxide 400 mg/5 mL 30 ml PO PRN CONSTIPATION 12/28/24 Unknown History oral suspension (Montanez Milk of Magnesia) melatonin 5 mg capsule 10 mg PO QHS PRN insomnia 12/28/24 Unknown History aluminum-magnesium hydroxide 225 30 ml PO Q4H PRN GI distress 12/29/24 Unknown History mg-200 mg/5 mL oral suspension guaifenesin 100 mg/5 mL oral liquid 200 mg PO Q4H PRN PRN cough, 12/29/24 Unknown History congestion hydrocodone-acetaminophen 5-325mg 1 tab PO Q6H PRN acute pain 12/29/24 Unknown History 5mg-325mg methocarbamol 500 mg tablet 500 mg PO TID muscle relaxant 12/29/24 Unknown History Allergy/AdvReac Type Severity Reaction Status Date / Time diphenhydramine (From Allergy hyper Verified 12/28/24 14:27 Benadryl) Family History Father Cancer Other Hypertension Surgical History History of total left knee replacement (~03/2021) Hx of tooth extraction Hx of elbow surgery Hx of shoulder surgery Hx of foot surgery Hx of right knee surgery (~2008) History of carpal tunnel release of both wrists H/O cervical spine surgery Social History household members: none Smoking Status: Former smoker alcohol intake: former substance use type: does not use Review of Systems (Anesthesia) ROS Narrative System reviewed and no additional complaints, except as documented.
[2024-12-31] MEDS: Lactated Ringers 1,000 ML 15 ML IV (10:33)
[2024-12-31] MEDS: Cefazolin 1 GM/5 ML Vial 2 GM IV (11:13)
[2024-12-31] MEDS: Lactated Ringers 1,000 ML 1000 ML IV (11:13)
[2024-12-31] MEDS: fentaNYL 100 MCG/2 ML Ampul 200 MCG IV (11:19)
[2024-12-31] MEDS: Lidocaine 1% (5 ml sdv) 5 ML Vial IV (11:19)
[2024-12-31] MEDS: REMIFENTANIL HCL 1 MG VIAL 1.464314 MG IV (11:20)
[2024-12-31] MEDS: NORMAL SALINE 1100 ML IV (12:15)
[2024-12-31] MEDS: Vancomycin IV 1,000 MG/20 ML Vial 1000 MG IV (12:49)
[2024-12-31] MEDS: TRANEXAMIC ACID 1,000 MG/10 ML ML 2000 MG IV (14:21)
--- NOTE | 2024-12-31 15:16 | OP.PCM_ITS ---
Procedures Musculoskeletal
--- NOTE | 2024-12-31 15:16 | PCM.OPRPT ---
Procedures Musculoskeletal [id number]-29xxx: Other Procedure See Report Operative Report (Standard) Operative Information Date of Procedure: 12/31/24 Pre-Operative Diagnosis: 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, status post C3-4 ACDF, history of C4-6 fusion Post-Operative Diagnosis: Same Surgery/Procedure Performed: C3-5 posterior decompression laminectomy, posterior spinal instrumented fusion body technician: Yes Retirement Officer: Rola Melchor Tasks completed by construction administrative assistant: Closing, Removing tissue, Hemostasis: Electrocautery and Retracting Type of Anesthesia: General RN Documented Start/Stop Times: Operation Date: 12/31/24 11:15 Case Time Into Pre-Op 12/31/24 10:13 Out of Pre-Op 12/31/24 11:09 Anesthesia Start 12/31/24 11:12 Into Room 12/31/24 11:12 Procedure Start 12/31/24 12:09 Procedure End 12/31/24 14:52 Procedure Start Time: 12:09 Procedure Stop Time: 14:52 Select all DRAINS/GRAFTS/IMPLANTS that apply: Drains Drain details: Hemovac , Graft Graft details: Magnifuse allograft, morselized autograft from lamina and Implanted device Implanted device details: [employer]tron[employer] Infinity posterior lateral mass instrumentation Estimated Blood Loss: 100 cc Specimen collected: No Description of surgery: Preoperative diagnosis: C3-4 stenosis with residual cord compression, severe myelopathy, status post C3-4 ACDF, history of C4-6 fusion Postoperative diagnosis: Same Name of procedure: C3-5 posterior decompression laminectomy, posterior spinal instrumented fusion - C3-4 posterior fusion CPT code 96153 - C4-5 posterior fusion CPT code 66820/51 - C3-4 posterior decompression CPT code 83201 - C4-5 posterior decompression CPT code 60825/51 - C3-5 posterior instrumentation CPT code 75329 - Autograft lamina morselized CPT code 69605 - Allograft cancellous chips with DBX CPT code 08847 Attending Surgeon: Dr. Herminio Méndez Estimated blood loss: 100 mL Anesthesia: GA Complications: None Instrumentation: [employer] Infinity posterior lateral mass instrumentation Indications: Patient is a 64-year-old gentleman who presented with progressively worsening weakness, difficulty with balance and multiple falls. Patient underwent C3-4 ACDF about 10 days ago which gave him good initial improvement but he started to decline again. Imaging revealed improved but moderate residual stenosis with cord compression and cord signal changes at C3-4, CT showed no evidence of hardware failure at the C3-4 ACDF. In order to halt the progression of myelopathy, patient requested surgical treatment. All risks associated with surgery were explained which include but are not limited to infection, blood loss, injury to spinal cord and nerve roots, quadriplegia, DVT, pulmonary embolism, , incomplete neurologic recovery, hardware failure, pseudoarthrosis, need for further surgery. Procedure: The patient was identified in the preoperative suite using unique patient identifiers. Skin was marked, consent was reviewed, and all questions were answered. The patient was then brought back to the operative room. A surgical timeout was performed to make sure correct procedure was being done on the correct patient and all operative room staff were on the same page. General endotracheal anesthesia was then given to the patient. Bhakta catheter was maintained. Spinal monitoring leads were applied. Pre-flip baseline potentials were recorded. Kenyon tongs were then applied. The patient was then carefully positioned prone on a regular OR table over parallel gel rolls and the Kenyon attachments were applied. All bony prominences were well-padded. Abdomen was free. Reverse Trendelenburg position was given. AP and lateral C-arm shot was taken to define the extent of incision. Post-flip Baseline neuro monitoring potentials were recorded. Skin was then prepped and draped in the usual fashion. A final time-out was then performed. A posterior midline incision was taken from approximately C2 spinous process to C6. Subcutaneous tissue was dissected with Bovie to reach the tips of spinous processes following the white line. Subperiosteal dissection was then carried out around the spinous process below C2 which was identified by the palpation. A Taylor was applied to one of the spinous processes and a Manning #4 was placed into the facet joint, and lateral C-arm image was taken. Levels were confirmed. Further subperiosteal dissection was then continued to expose C3-C5 right up to the lateral edge of the lateral masses. Hemostasis was achieved with Bovie and occasional use of FloSeal and aqua mantis. Screws were then placed using a bur to make a [place] lever[place] hole and then utilizing drill with a stop at 14 mm. Ballpoint probe was utilized to see if this cortex was breached. Lateral mass screws were placed from C3-C5 bilaterally. Screw sizes were 3.5 x 14 mm at all levels bilaterally, except at right C3 which was 3.0 x 14 mm. There was significant erosion at the C3-4 facet joints bilaterally worse on the right which made the C3 lateral mass screws significantly small. C-arm showed good positioning of screws. Bone scalpel was then utilized to make a score on both sides to perform a laminectomy at C3-C5. Bone scalpel was then used to complete the laminectomy cuts over the scored sierra. Nerve hook was utilized to probe under the ligamentum flavum and #2 Kerrison rongeur was used to complete the laminectomy by resecting the flavum under the lamina. The laminectomy was then completed by using Kerrison rongeurs at the C2-3 and C4-5 interlaminar spaces. With gentle traction was given through towel clips attached to C3 and C4 spinous processes while the laminectomy was completed. Motor potentials were run periodically during the decompression procedure and they were all baseline. Irrisept was kept in the wound for 1 minute. Irrigation was performed with 3 L of normal saline using pulse lavage. Bur was then utilized to decorticate the lateral masses from C3-5 bilaterally. An appropriate length precontoured stas was then placed and set screws were tightened. The stas had to be placed in a kyphotic position because of the significant C3-4 spondylolisthesis. Final tightening was done with torque screwdriver. Lamina bone from the laminectomy was morselized was then placed lateral to the screws & rods for fusion. 1 x 5 cm Magnifuse was then placed lateral to the rods on either side on top of the autograft. Gelfoam was placed over the laminectomy bed. 1 g vancomycin powder was sprinkled into the wound. Closure was done in layers over a medium Hemovac drain. #0 Vicryl and strata fix was used for the deep fascia, 2-0 Vicryl for the subcutaneous tissue and ricarda for the skin were utilized. Incisional VAC dressing was placed. The patient was then carefully detached from the Kenyon attachments and turned supine carefully onto a hospital bed. A hard cervical collar was placed. Kenyon pins were removed. The patient was extubated and was found to move all 4 extremities. The patient was then taken to the PACU for postop management. Estimated blood loss for the entire procedure was 100 mL. The patient tolerated the entire procedure well and no complications occurred. [employer] Infinity instrumentation was utilized. No dural tear was identified intraoperatively. I was present for the entirety of the case and performed the surgery myself. Surgical Findings: See operative note Complications Complications: No
--- NOTE | 2024-12-31 15:33 | POSTOP.ANE_ITS ---
Anesthesia: Postop Eval I
--- NOTE | 2024-12-31 15:33 | PCM.POST.ANE ---
Anesthesia: Postop Eval I Current Vital Signs Temperature: 98 F Pulse Rate: 81 Blood Pressure: 173/88 (labetolol 10 mg given IV, will continue to monitor. see pacu vital signs) Respiratory Rate: 16 Pulse Ox: 100 Oxygen Delivery Method: Venturi Mask Oxygen Flow Rate (L/min): 6 Assessment Airway patent: Yes Spontaneous unlabored respirations: Yes Mental status: Awake and Calm nausea: No Vomiting: No Anesthesia Complication: No Fluid Hydration Crystalloid volume administer (ml): 2,100 Total IV fluid infused: 2,100 Progress Note Anesthesia document: Postop Eval 1 completed: Yes
--- NOTE | 2024-12-31 15:35 | PN.HOSP_ITS ---
Reason for Visit
--- NOTE | 2024-12-31 15:35 | PCM.PN.HOSP ---
Reason for Visit Chief Complaint: Decreased strength and sensation bilateral upper extremity Objective Data Objective Data Vital Signs: Vital Signs Temp Pulse Resp BP Pulse Ox O2 Del Method O2 Flow Rate 98 F 81 16 173/88 H 100 Venturi Mask 6 12/31/24 15:34 12/31/24 15:34 12/31/24 15:34 12/31/24 15:34 12/31/24 15:34 12/31/24 15:34 12/31/24 15:34 Oxygen Flow Rate (L/min) 6 Oxygen Delivery Method Venturi Mask Weight: 182 lb 12.8 oz Body Mass Index (BMI) 28.6 Intake & Output: Intake and Output for Last 24 Hours 12/29/24 12/30/24 12/31/24 23:59 23:59 23:59 Intake Total 300 / 300 500 / 500 Output Total 1350 / 1350 2250 / 2900 1625 / 1625 Balance -1050 / -1050 -1750 / -2400 -1625 / -1625 Lab / Micro Data 12/31/24 04:20 12/31/24 04:20 Labs: Laboratory Results - last 24 hr 12/31/24 04:20: WBC 7.0, RBC 4.93, Hgb 14.1, Hct 43.2, MCV 87.6, MCH 28.6, MCHC 32.6, RDW Std Deviation 41.4, RDW Coeff of Jamie 12.9, Plt Count 196, MPV 9.1, Immature Gran % (Auto) 0.400, Neut % (Auto) 71.1 H, Lymph % (Auto) 9.6 L, [place] % (Auto) 15.2 H, Eos % (Auto) 3.4, Baso % (Auto) 0.3, Absolute Neuts (auto) 5.0, Absolute Lymphs (auto) 0.67 L, Nucleated RBC % 0, Sodium 132 L, Potassium 4.3, Chloride 97 L, Carbon Dioxide 24.4, Anion Gap 11, BUN 22 H, Creatinine 0.74, Estim Creat Clear Calc 93.56, Est GFR (MDRD) Non-Af 100, BUN/Creatinine Ratio 29.8 H, Glucose 110 H, Calcium 9.4 Physical Exam Narrative Seen and examined in PACU after surgery he just returned to PACU about 15 minutes ago. Had BM yesterday Patient in pain 08/18. Mild improvement in right upper extremity weakness. Did not examine muscle strength because of pain and patient mildly groggy/drowsy after surgery. Physical exam General: Drowsy/groggy after surgery. HEENT: Atraumatic, PERRLA, EOMI, Normocephalic. Oral: No Gingival or Mucosal Lesions/ Ulcerations Neck: Posterior surgical approach. Covered with hard collar. Chest wall/Lungs: Air entry diminished in bilateral lung bases. No crepitation/rhonchi Cardiovascular: Regular rate and rhythm, elevated BP. No M/G/R Abdomen: Bowel Sounds Present, Soft, Non Tender, Non-Distended : No dysuria. No renal angle tenderness. No suprapubic tenderness. Extremities: No edema, Capillary Refill Less than 3 Seconds Skin: No rashes, No breakdown Musculoskeletal: Had bilateral shoulder weakness, right more than left, power 4/5 on right shoulder, left 4+/5, Weakness of right hip knee and ankle joint more than corresponding left joints prior to surgery Neurological: Neuroexam not done. Patient was lethargic with pain. Psych/Mental Status: Groggy. Assessment & Plan Assessment/Plan (1) History of cervical spinal surgery: (2) Weakness: (3) Status post cervical spinal fusion: (4) COPD (chronic obstructive pulmonary disease): (5) GERD (gastroesophageal reflux disease): (6) Hyperlipidemia, unspecified: (7) Essential (primary) hypertension: PLAN: Plan This is a 64 old gentleman being admitted for bilateral shoulder and lower extremity weakness with initial improvement after recent ACDF of C3-C4 1. Chronic C3-4 spinal listhesis, severe spinal stenosis with myelopathy, cord compression, cord signal changes, prior C4?6 fusion: Patient had C3-5 posterior decompression laminectomy/spinal fusion on 12/31/2024: Patient had C3-C4 ACDF/anterior cervical discectomy and fusion, removal of previous C4-5 anterior instrumentation on 12/21/2024. Patient has weakness of bilateral shoulder right more than left after initial improvement in first 2 days after surgery. He also had initial improvement of chronic lower extremity weakness right more than left for 2 days and then weak ri again. Decreased sensation/numbness on bilateral upper extremity right more than left. Discussed with Dr. Méndez. Cervical spine MRI shows improvement in spinal stenosis C3-4 status post surgery with removal of inferior hardware. Persistent moderate canal narrowing and myelomalacia. No pathologic enhancement. Cervical spine CT shows similar features with grade 1 anterior listhesis of C3 on C4. Multilevel facet joint osteoarthritis and hypertrophy. Neuroforaminal more prominent on right side Pain control. Rest as by spine surgeon 12/30: Discussed with orthopedic surgeon and plan for surgery tomorrow. Orthopedic follow-up reviewed. DVT prophylaxis was discontinued yesterday. 12/31: Patient had C3 5 posterior decompression laminectomy, posterior spinal instrumented fusion. Postop diagnosis 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, status post C3-4 ACDF and C4-6 fusion in pain 08/18. Mild groggy. Had a BM yesterday. 2. COPD?no acute exacerbation continue routine inhalation. Continue incentive spirometry and PEP for 1 week 3. GERD?continue proton pump inhibitor 4. Hyperlipidemia?continue statin medication 5. Hypertension?continue routine home medications controlled at this time 6. DVT prophylaxis?low molecular weight heparin 7. CODE STATUS full verified Clinical Impression(s) from Imaging Studies Cervical Spine MRI 12/28/24 15:14 IMPRESSION: Mild improvement in spinal stenosis at C3-4 status post surgery with removal of inferior hardware. Persistent moderate canal narrowing and again noted is myelomalacia. There is no pathologic enhancement. Cervical Spine CT 12/29/24 08:10 IMPRESSION: Status post anterior fusion at the C3-C4 level and prosthetic disc placement. Grade 1 anterior listhesis of C3 on C4. Multilevel facet joint osteoarthritis and hypertrophy with uncovertebral arthrosis and neural foraminal stenosis more prominent on the right side. Laboratory Results 12/28/24 14:44: Sodium 131 L, Potassium 4.2, Chloride 96 L, Carbon Dioxide 22.6, Anion Gap 12, BUN 23 H, Creatinine 0.85, Estim Creat Clear Calc 90.08, Est GFR (MDRD) Non-Af 96, BUN/Creatinine Ratio 26.9 H, Glucose 122 H, Calcium 10.0 12/29/24 06:12: WBC 10.8, RBC 5.51, Hgb 16.0, Hct 49.2, MCV 89.3, MCH 29.0, MCHC 32.5, RDW Std Deviation 42.4, RDW Coeff of Jamie 12.9, Plt Count 203, MPV 9.0, Immature Gran % (Auto) 0.400, Neut % (Auto) 88.6 H, Lymph % (Auto) 2.9 L, [place] % (Auto) 6.8, Eos % (Auto) 1.0, Baso % (Auto) 0.3, Absolute Neuts (auto) 9.6 H, Absolute Lymphs (auto) 0.31 L, Nucleated RBC % 0, Sodium 133, Potassium 4.7, Chloride 97 L, Carbon Dioxide 25.9, Anion Gap 10, BUN 22 H, Creatinine 0.85, Estim Creat Clear Calc 88.06, Est GFR (MDRD) Non-Af 96, BUN/Creatinine Ratio 25.6 H, Glucose 99, Calcium 9.7 Charges/Coding Visit Charges Inpatient E&M: 24065 Subs Hosp L2
--- NOTE | 2024-12-31 17:20 | POSTOPAN2_ITS ---
Anesthesia Postop Eval I Sum
--- NOTE | 2024-12-31 17:20 | PCM.POSTANE2 ---
Anesthesia Postop Eval I Sum Postop Eval Completion status Anesthesia document: Postop Eval 1 completed: Yes Anesthesia Postop Eval I Summary Anesthesia Postop Eval I Summary: Anesthesia Postop Eval I: Assessment Summary Airway patent Yes 12/31/24 15:34 CONSERVATION SPECIALIST.MDOT Spontaneous unlabored Yes 12/31/24 15:34 CONSERVATION SPECIALIST.MDOT respirations Mental status Awake,Calm 12/31/24 15:34 CONSERVATION SPECIALIST.MDOT nausea No 12/31/24 15:34 CONSERVATION SPECIALIST.MDOT Vomiting No 12/31/24 15:34 CONSERVATION SPECIALIST.MDOT Anesthesia Postop Eval I: Fluid Summary Crystalloid volume administer 2,100 12/31/24 15:34 CONSERVATION SPECIALIST.MDOT (ml) Colloids volume administered ( ml) Blood Product volume administered (ml) Total IV fluid infused 2,100 12/31/24 15:34 CONSERVATION SPECIALIST.MDOT Anesthesia Postop Eval I: Summary Notes Anesthesia Complication No 12/31/24 15:34 CONSERVATION SPECIALIST.MDOT Anesthesia Complication Comment: Post-operative progress note Anesthesia: Postop Eval II Evaluation Mental status: Awake and Calm Pain Level: 1 nausea: No Vomiting: No Progress Note Post-operative progress note: Did well in PACU. At baseline neuro eval. With detailed weakness in the extremities from the neuro note. Blood pressure controlled in PACU. Pain controlled in PACU. Transferred to the floor from PACU. Complications Anesthesia Complication: No
[2024-12-31] MEDS: Ketorolac 30 MG/ML Syringe IV (17:44)
[2024-12-31] MEDS: Mineral Oil/Petrolatum Cr 1.75oz Bottle 1 APPLIC TOPICAL (17:45)
[2024-12-31] MEDS: Ensure Surgery 237 ML LIQUID PO (17:50)
[2024-12-31] MEDS: Cefazolin 2 GM in 0.9% Normal Saline (100mL Bag) 100 ML IV (18:52)
[2024-12-31] MEDS: 0.9% Normal Saline (250mL Bag) 250 ML 15 ML IV (18:53)
[2024-12-31] MEDS: Senna/Docusate Sodium 1 Tablet 2 TABLET PO (20:09)
[2025-01-01] VITALS (7 sets, daily range): BP systolic 123–147; BP diastolic 68–86; PULSE 67–86; RESP 16–22; TEMP 36.3–36.4; O2SAT 98–100
[2025-01-01] MEDS: Ketorolac 30 MG/ML Syringe IV ×3 (00:14→11:15)
[2025-01-01] MEDS: Cefazolin 2 GM in 0.9% Normal Saline (100mL Bag) 100 ML IV (02:49)
[2025-01-01] MEDS: HYDROcodone Bitartrate/Apap 5/325 Tablet PO ×3 (02:49→19:42)
[2025-01-01] MEDS: 0.9% Saline Lock 10 ML Syringe IV ×2 (02:52→11:18)
--- NOTE | 2025-01-01 05:00 | RAD_ITS ---
PROCEDURE: RAD/Cerv Spine 2 or 3 Views
[2025-01-01 05:05] LABS: Hematocrit 39.1 % (40-54); Hemoglobin 13.2 g/dL (13.0-16.5); Immature Granulocytes Count 0.030 X10^3/uL (0.0-0.0); Mean Corp Hgb Conc 33.8 g/dL (32-36); Mean Corpuscular Volume 87.1 fL (80-94); Mean Platelet Vol. 9.2 fl (6.2-12.0); NRBC Flagged by Analyzer 0 % (0-5); POSITIVE DIFFERENTIAL YES; Platelet Count 196 K/mm3 (150-450); RBC Distribution Width CV 12.4 % (11.6-14.6); RBC Distribution Width SD 39.7 fl (35.1-43.9); Red Blood Count 4.49 M/mm3 (4.6-6.2); White Blood Count 8.6 K/mm3 (4.4-11.0)
[2025-01-01 05:32] LABS: Anion Gap 10 (5-15); BUN 18 mg/dL (4-19); BUN/Creat Ratio 27.6 RATIO (10-20); Calcium,Total 8.7 mg/dL (7.6-11.0); Carbon Dioxide 23.2 mmol/L (21.0-32.0); Chloride 99 mmol/L (98-108); Estimated Creatinine Clearance 93.56 ml/min (50-250); Glucose 114 mg/dL (70-99); Potassium 4.6 mmol/L (3.3-5.1)
[2025-01-01] MEDS: Budesonide Respules 0.5 MG/2 ML AMPUL.NEB. INHALATION (07:10)
[2025-01-01] MEDS: Albuterol 2.5 MG/3 ML VIAL.NEB. INHALATION ×2 (07:10→12:56)
--- NOTE | 2025-01-01 07:34 | PCM.PN.ORT ---
Subjective Subjective Edson is a pleasant 64 yo post-op day 1 posterior cervical fusion surgery with Dr. Méndez. Patient is sitting up in bed reports adequate pain control overnight. Feels strength is improving to bilateral upper extremities. Had Bhakta catheter placed secondary to urinary retention and difficulty manipulating urinal. Objective Data Objective Data Hemovac drainage last night of 30 cc and early this morning 20 cc Vital Signs: Vital Signs Temp Pulse Resp BP Pulse Ox O2 Del Method O2 Flow Rate 97.5 F L 67 17 147/75 H 99 Room Air 6 01/01/25 02:42 01/01/25 07:10 01/01/25 07:10 01/01/25 02:42 01/01/25 07:10 01/01/25 07:10 12/31/24 15:34 Oxygen Flow Rate (L/min) 6 Oxygen Delivery Method Room Air Weight: 182 lb 12.8 oz Body Mass Index (BMI) 28.6 Intake & Output: Intake and Output for Last 24 Hours 12/30/24 12/31/24 01/01/25 23:59 23:59 23:59 Intake Total 500 / 500 1629.25 / 1629.25 110 / 110 Output Total 2250 / 2900 2505 / 2505 470 / 470 Balance -1750 / -2400 -875.75 / -875.75 -360 / -360 Lab / Micro Data Attestation: I reviewed the patient's lab results. 01/01/25 04:27 01/01/25 04:27 Labs: Laboratory Results - last 24 hr 01/01/25 04:27: WBC 8.6, RBC 4.49 L, Hgb 13.2, Hct 39.1 L, MCV 87.1, MCH 29.4, MCHC 33.8, RDW Std Deviation 39.7, RDW Coeff of Jamie 12.4, Plt Count 196, MPV 9.2, Immature Gran % (Auto) 0.300, Neut % (Auto) 86.3 H, Lymph % (Auto) 6.8 L, [place] % (Auto) 6.3, Eos % (Auto) 0.2, Baso % (Auto) 0.1, Absolute Neuts (auto) 7.4, Absolute Lymphs (auto) 0.58 L, Nucleated RBC % 0, Sodium 131 L, Potassium 4.6, Chloride 99, Carbon Dioxide 23.2, Anion Gap 10, BUN 18, Creatinine 0.65 L, Estim Creat Clear Calc 93.56, Est GFR (MDRD) Non-Af 104, BUN/Creatinine Ratio 27.6 H, Glucose 114 H, Calcium 8.7 Radiography Diagnostic Testing: Radiology Impression Cervical Spine X-Ray 12/31/24 10:15 IMPRESSION: As above. Reading Location: [address] Cervical Spine X-Ray 01/01/25 05:00 IMPRESSION: No postoperative complications after posterior cervical fusion between C3 and C6 Stable anterior hardware at C3 and C4 No acute findings Disclaimer: Reading Location: [id number] Physical Exam Const alert, oriented x3 and no apparent distress General Appearance: cooperative Neck supple Neck Narrative: C-collar in place, removed for today's exam. Dressings to Hemovac and incisional VAC drain to posterior neck are clean, dry and intact and draining sanguinous fluid. Neck to surrounding sites are nontender to palpation. General: trachea midline Resp normal respiratory effort Effort and Inspection: able to speak in complete sentences Assessment & Plan Assessment/Plan (1) Status post cervical spinal fusion: PLAN: Patient ready for transfer once cleared by internal medicine. Recommend inpatient rehab if patient deemed appropriate per PT/case mgmt assessment this morning Anticipate outpatient pain control with meloxicam, acetaminophen, hydrocodone and muscle relaxers (either baclofen or methocarbamol, whichever provides better muscle spasm relief) Ortho to round later today and anticipate drain removal Wound care: Keep Tegaderm and gauze clean and dry. After 5 days remove the Tegaderm and gauze and cover incision with a Band-Aid. Replace Band-Aid daily thereafter. Wear cervical collar full-time for the first 2 weeks. Eat soft solid foods as needed for dysphagia. Sleep in a recliner to help with swelling. No bending, lifting, twisting. Monitor wound daily and as needed for any concerns such as increased pain, redness, swelling, streaking, fever, chills or drainage. Seek evaluation if these are present or concerning Follow-up in clinic in 2 weeks. (2) History of cervical spinal surgery: (3) Cervical myelopathy: Supplemental Info Independent review of cervical films from this morning collaborated with Dr. Méndez. No postoperative complications after posterior cervical fusion between C3 and C6. Stable anterior hardware at C3 and C4.
[2025-01-01] MEDS: Senna/Docusate Sodium 1 Tablet 2 TABLET PO (07:55)
[2025-01-01] MEDS: Ensure Surgery 237 ML LIQUID PO ×3 (08:03→16:57)
--- NOTE | 2025-01-01 08:57 | CASEMGMT ---
Discharge Planning Updates sent via [facility] to Claude Tapia. Judith Salazar DC Planning Asst
--- NOTE | 2025-01-01 12:25 | CASEMGMT ---
Addendum entered by Mariela Ace 01/01/25 14:09: Receive authorization from Shweta at [facility] for auth approved for 95 skilled days. Admitting facility must submit clinicals. Auth number is [id number].DC front end assistant updated. Addendum entered by Mariela Ace 01/01/25 13:12: TC to [facility], confirmed they received the request for precert for SNF with . Original Note: Per hospitalist, pt medically ready for dc. Printed clinicals and faxed to [facility] for SNF auth at this time.
--- NOTE | 2025-01-01 14:07 | CASEMGMT ---
Addendum entered by Judith Salazar 01/01/25 14:14: Auth # sent via [facility] to Claude Tapia. Original Note: Discharge anesthesiologist and critical care [facility] has obtained skilled auth. [facility], but likely later in the day. Green Sheet and transport form placed in chart. Judith Salazar DC Planning Asst.
--- NOTE | 2025-01-01 14:17 | PCM.TXEXTCAR ---
Diet Diet Order/Speech Therapy: INPATIENT Hospital Diet / Speech Therapy Order(s) 12/31/24 15:29 Diet: Regular - General Routine Orders/Code Status Code Status: Full Code DC O2, CPAP, BIPAP needs Home O2 Discharge instructions: No Wound(s) R 1st finger: Wound Type: Abrasion R foot 2nd toe: Wound Type: Abrasion L foot 2nd toe: Wound Type: Abrasion Anterior neck from surgery 12/21: Wound Type: Surgical Incision posterior right thight: Wound Type: Skin Tear POSTERIOR NECK: Wound Type: Keep Tegaderm and gauze clean and dry, after 5 days remove the Tegaderm and (Wear cervical collar full-time for 2 weeks) Dressing Change: Check neck wound daily for any concerns such as increased pain, redness, sw Therapies Weight Bearing: Full weight bearing Problem/Diagnosis (1) Status post cervical spinal fusion: Status: Acute Code(s): Z98.1 - Arthrodesis status (2) History of cervical spinal surgery: Status: Acute Code(s): Z98.890 - Other specified postprocedural states (3) Cervical myelopathy: Status: Acute Code(s): G95.9 - Disease of spinal cord, unspecified Allergies/Procedures Done in Hospital Allergies diphenhydramine (From Benadryl) Allergy (Verified 12/28/24 14:27) hyper Procedures: - (C3-5 posterior decompressive laminectomy, posterior spinal instrumented fusion) Type of Care/Length of Stay Estimated LOS: Convalescent Care Less Than 30 days Type of Care Needed: Skilled Rehab Potential: Good Prognosis: Good Additional Orders/Day of Discharge H&P will serve as current which was dated: 12/28/24 Day of Discharge: 01/01/25 Discharge Plan Admission Admit Date/Time: 12/28/24 21:08 Primary Reason for Your Visit: 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, status post C3-4 ACDF Attending Provider: Ulises Steven Primary Care Provider: Sourav Castro Consulting Providers: Herminio Méndez; Yony Grier; Percy Rucker Discharge Orders/Prescriptions Prescriptions: New hydrocodone-acetaminophen 5-325 mg Tablet 1 - 2 tab PO Q6H PRN PRN (Reason: Pain Score 6-10 Or Pre Pt/Ot) 3 Days Qty: 20 0RF menthol-zinc oxide [Calmoseptine] 0.44-20.6 % Ointment 1 applic topical TID Qty: 0 0RF Protocol: *Topical Application Instructions APPLICATION INSTRUCTIONS: buttocks methocarbamol 500 mg Tablet 1,000 mg PO 4X/DAY 7 Days Qty: 0 0RF sennosides-docusate sodium [Stimulant Laxative Plus] 8.6-50 mg Tablet 2 tab PO BID Qty: 0 0RF albuterol sulfate [Ventolin HFA] 90 mcg/actuation HFA aerosol inhaler 2 puff inhalation Q6H PRN (Reason: shortness of breath or wheezing) Qty: 6.7 0RF Continued omeprazole 20 mg capsule,delayed release(DR/EC) 20 mg PO QDAY aspirin 81 mg Capsule 81 mg PO DAILY budesonide-formoterol [Symbicort] 160-4.5 mcg/actuation HFA aerosol inhaler 1 puff INHALATION BID PRN (Reason: COPD) baclofen 5 mg tablet 5 mg PO TID amlodipine 5 mg Tablet 5 mg PO DAILY Qty: 90 0RF Patient Comments: AM enoxaparin 40 mg/0.4 mL Syringe 40 mg subcut DAILY 30 Days Qty: 0 0RF losartan 25 mg Tablet 25 mg PO BID 90 Days Qty: 180 0RF meloxicam 15 mg Tablet 15 mg PO DAILY Qty: 0 0RF atorvastatin [Lipitor] 20 mg tablet 20 mg PO DAILY cetirizine 10 mg tablet 10 mg PO QDAY Glucagon Emergency Kit (human) 1 mg recon soln 1 mg IM Q20M PRN (Reason: hypoglycemia) Rx Instructions: until target blood sugar attained melatonin 5 mg capsule 10 mg PO QHS PRN (Reason: insomnia) magnesium hydroxide [Montanez Milk of Magnesia] 400 mg/5 mL suspension 30 ml PO PRN acetaminophen 500 mg Tablet 1,000 mg PO Q8H PRN (Reason: pain) Discontinued sennosides-docusate sodium [Stimulant Laxative Plus] 8.6-50 mg Tablet 1 tab PO DAILY Qty: 0 0RF tramadol 50 mg Tablet 50 mg PO TID 2 Days Qty: 6 0RF Patient Comments: for 2 weeks from 12/23/24 acetaminophen 650 mg suppository 650 mg OK Q4H PRN (Reason: fever or pain) acetaminophen 325 mg capsule 650 mg PO Q4H PRN (Reason: pain or fever) bisacodyl 10 mg suppository 10 mg OK DAILY PRN (Reason: constipation) Patient Comments: IF MOM NOT EFFECTIVE albuterol sulfate 2.5 mg /3 mL (0.083 %) Solution For Nebulization 2.5 mg inhalation BID methocarbamol 500 mg tablet 500 mg PO TID Patient Comments: For 2 weeks from 12/23/24 hydrocodone-acetaminophen 5-325 mg tablet 1 tab PO Q6H PRN (Reason: acute pain) Patient Comments: for 2 weeks from 12/23/24 aluminum-magnesium hydroxide 225-200 mg/5 mL suspension 30 ml PO Q4H PRN guaifenesin 100 mg/5 mL liquid 200 mg PO Q4H PRN PRN (Reason: cough, congestion) Referrals / Follow Up: Herminio Méndez MD [Med Staff - Active Staff, Orthopedics] - In 1 Week Referral Note: Call to schedule follow-up appointment in 1 week Sourav Castro MD [Primary Care Provider, Family Practice] Disposition Disposition (needs filled in before D/C Order can be placed): [facility]
--- NOTE | 2025-01-01 14:47 | PCM.DC.SUM ---
Providers Date of Admission: 12/28/24 Date of Discharge: 01/01/25 Primary Care Physician: Dr. Sourav Castro MD Consultations 12/28/24 21:29 Consult: Orthopedics Routine Consulting Provider: Herminio Méndez Reason for Consult: Postop weakness EMERGENT Consult: Yes MD Notified: Yes Date Notified: 12/28/24 Time Notified: 21:11 Method of Notification: ED Physician Initiated Reason For Visit: POSTOPERATIVE WEAKNESS FROM SPINAL SURGERY Diagnosis Discharge Diagnosis (1) Status post cervical spinal fusion: Status: Acute Code(s): Z98.1 - Arthrodesis status (2) History of cervical spinal surgery: Status: Acute Code(s): Z98.890 - Other specified postprocedural states (3) Cervical myelopathy: Status: Acute Code(s): G95.9 - Disease of spinal cord, unspecified Plan 1. 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, status post C3-4 ACDF, history of C4-6 fusion #2 chronic obstructive pulmonary disease #3 essential hypertension #4 osteoarthritis Medications at Discharge Home Medications aspirin 81 mg capsule 81 mg PO DAILY heart health 03/07/21 atorvastatin 20 mg tablet (Lipitor) 20 mg PO DAILY Hyperlipidemia 09/18/24 budesonide-formoterol HFA 160 mcg-4.5 mcg/actuation aerosol inhaler (Symbicort) 1 puff inhalation BID PRN COPD 12/16/24 cetirizine 10 mg tablet 10 mg PO QDAY allergies 12/16/24 omeprazole 20 mg capsule,delayed release 20 mg PO QDAY GERD 12/16/24 baclofen 5 mg tablet 5 mg PO TID chronic pain 12/17/24 amlodipine 5 mg tablet 5 mg PO DAILY hypertension #90 tabs 12/23/24 enoxaparin 40 mg/0.4 mL subcutaneous syringe 40 mg (0.4 mL) subcut DAILY 30 days #0 mL 12/23/24 losartan 25 mg tablet 25 mg PO BID hypertension 90 days #180 tabs 12/23/24 meloxicam 15 mg tablet 15 mg PO DAILY chronic pain #0 tabs 12/23/24 acetaminophen 500 mg tablet 1,000 mg PO Q8H PRN pain 12/28/24 glucagon 1 mg solution for injection (Glucagon Emergency Kit) 1 mg IM Q20M PRN hypoglycemia 12/28/24 magnesium hydroxide 400 mg/5 mL oral suspension (Montanez Milk of Magnesia) 30 ml PO PRN CONSTIPATION 12/28/24 melatonin 5 mg capsule 10 mg PO QHS PRN insomnia 12/28/24 albuterol sulfate 90 mcg/actuation aerosol inhaler (Ventolin HFA) 2 puff inhalation Q6H PRN shortness of breath or wheezing #6.7 grams 01/01/25 hydrocodone-acetaminophen 5-325mg 5mg-325mg 1 - 2 tab PO Q6H PRN PRN Pain Score 6-10 Or Pre Pt/Ot 3 days #20 tabs 01/01/25 menthol 0.44 %-zinc oxide 20.6 % topical ointment (Calmoseptine) 1 applic topical TID #0 grams 01/01/25 methocarbamol 500 mg tablet 1,000 mg (2 x 500 mg) PO 4X/DAY 1 week #0 tabs 01/01/25 sennosides 8.6 mg-docusate sodium 50 mg tablet (Stimulant Laxative Plus) 2 tab PO BID #0 tabs 01/01/25 Hospital Course Operations - (C3-5 posterior decompression laminectomy, posterior spinal instrumented fusion) Summary of Care Provided Minutes Spent on Discharge: 32 Hospital Course: 64-year-old white male was seen in the emergency room at [facility] with symptoms of decreased sensation and strength in both upper extremities. Patient had undergone a C3-C4 laminectomy 1 week ago with ACDF and removal of previous C4-5 anterior instrumentation. He had been in a residential facility undergoing rehab services when his symptoms increased and he was brought to the ER for evaluation. Recall spine MRI was able to be performed, it showed a mild improvement in spinal stenosis at C3-4 status post surgery with removal of anterior hardware, there was persistent moderate canal narrowing and myelomalacia. Labs were essentially unremarkable. Patient was admitted to [place] [address] and seen in consultation by spinal surgery, he subsequently underwent C3-5 posterior decompression laminectomy with posterior spinal instrumentation and fusion. Patient did well postsurgery, he was seen by PT and OT, it was felt he would benefit to be discharged to a skilled facility for further inpatient skilled services. On 01/01/2025, patient was seen and examined: On examination he appeared in good health and spirits. Vital signs as documented. Skin warm and dry and without overt rashes. Neck without JVD, neck was supple, trachea midline, thyroid was normal. Lungs clear bilaterally, normal air movement was noted. Heart exam notable for regular rhythm, normal sounds and absence of murmurs, rubs or gallops. Abdomen unremarkable and without evidence of organomegaly, masses, or abdominal aortic enlargement. Bowel sounds are present, abdomen is not distended. Extremities nonedematous, no cyanosis was noted, no clubbing was noted. Neuro: Cranial nerves II through XII are grossly intact, no focal motor deficits were noted, sensation to light touch and pinprick intact, motor exam 5/5 throughout. Psych: Patient is alert and oriented x3, he does not appear anxious or depressed, he does not appear agitated. Patient was discharged in stable condition to a residential facility on 01/01/2025. Weight / BMI Weight Weight: 82.917 kg Body Mass Index (BMI) 28.6 ABG / Lab / Microbiology Data 01/01/25 04:27 01/01/25 04:27 Laboratory: Laboratory Results - last 24 hr 01/01/25 04:27: WBC 8.6, RBC 4.49 L, Hgb 13.2, Hct 39.1 L, MCV 87.1, MCH 29.4, MCHC 33.8, RDW Std Deviation 39.7, RDW Coeff of Jamie 12.4, Plt Count 196, MPV 9.2, Immature Gran % (Auto) 0.300, Neut % (Auto) 86.3 H, Lymph % (Auto) 6.8 L, [place] % (Auto) 6.3, Eos % (Auto) 0.2, Baso % (Auto) 0.1, Absolute Neuts (auto) 7.4, Absolute Lymphs (auto) 0.58 L, Nucleated RBC % 0, Sodium 131 L, Potassium 4.6, Chloride 99, Carbon Dioxide 23.2, Anion Gap 10, BUN 18, Creatinine 0.65 L, Estim Creat Clear Calc 93.56, Est GFR (MDRD) Non-Af 104, BUN/Creatinine Ratio 27.6 H, Glucose 114 H, Calcium 8.7 Radiography Diagnostic Testing: Radiology Impression Cervical Spine X-Ray 12/31/24 10:15 IMPRESSION: As above. 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, status post C3-4 ACDF Attending Provider: Ulises Steven Primary Care Provider: Sourav Castro Consulting Providers: Herminio Méndez; Yony Grier; Percy Rucker Discharge Orders/Prescriptions Prescriptions: New hydrocodone-acetaminophen 5-325 mg Tablet 1 - 2 tab PO Q6H PRN PRN (Reason: Pain Score 6-10 Or Pre Pt/Ot) 3 Days Qty: 20 0RF menthol-zinc oxide [Calmoseptine] 0.44-20.6 % Ointment 1 applic topical TID Qty: 0 0RF Protocol: *Topical Application Instructions APPLICATION INSTRUCTIONS: buttocks methocarbamol 500 mg Tablet 1,000 mg PO 4X/DAY 7 Days Qty: 0 0RF sennosides-docusate sodium [Stimulant Laxative Plus] 8.6-50 mg Tablet 2 tab PO BID Qty: 0 0RF albuterol sulfate [Ventolin HFA] 90 mcg/actuation HFA aerosol inhaler 2 puff inhalation Q6H PRN (Reason: shortness of breath or wheezing) Qty: 6.7 0RF Continued omeprazole 20 mg capsule,delayed release(DR/EC) 20 mg PO QDAY aspirin 81 mg Capsule 81 mg PO DAILY budesonide-formoterol [Symbicort] 160-4.5 mcg/actuation HFA aerosol inhaler 1 puff INHALATION BID PRN (Reason: COPD) baclofen 5 mg tablet 5 mg PO TID amlodipine 5 mg Tablet 5 mg PO DAILY Qty: 90 0RF Patient Comments: AM enoxaparin 40 mg/0.4 mL Syringe 40 mg subcut DAILY 30 Days Qty: 0 0RF losartan 25 mg Tablet 25 mg PO BID 90 Days Qty: 180 0RF meloxicam 15 mg Tablet 15 mg PO DAILY Qty: 0 0RF atorvastatin [Lipitor] 20 mg tablet 20 mg PO DAILY cetirizine 10 mg tablet 10 mg PO QDAY Glucagon Emergency Kit (human) 1 mg recon soln 1 mg IM Q20M PRN (Reason: hypoglycemia) Rx Instructions: until target blood sugar attained melatonin 5 mg capsule 10 mg PO QHS PRN (Reason: insomnia) magnesium hydroxide [Montanez Milk of Magnesia] 400 mg/5 mL suspension 30 ml PO PRN acetaminophen 500 mg Tablet 1,000 mg PO Q8H PRN (Reason: pain) Discontinued sennosides-docusate sodium [Stimulant Laxative Plus] 8.6-50 mg Tablet 1 tab PO DAILY Qty: 0 0RF tramadol 50 mg Tablet 50 mg PO TID 2 Days Qty: 6 0RF Patient Comments: for 2 weeks from 12/23/24 acetaminophen 650 mg suppository 650 mg [place] Q4H PRN (Reason: fever or pain) acetaminophen 325 mg capsule 650 mg PO Q4H PRN (Reason: pain or fever) bisacodyl 10 mg suppository 10 mg MN DAILY PRN (Reason: constipation) Patient Comments: IF MOM NOT EFFECTIVE albuterol sulfate 2.5 mg /3 mL (0.083 %) Solution For Nebulization 2.5 mg inhalation BID methocarbamol 500 mg tablet 500 mg PO TID Patient Comments: For 2 weeks from 12/23/24 hydrocodone-acetaminophen 5-325 mg tablet 1 tab PO Q6H PRN (Reason: acute pain) Patient Comments: for 2 weeks from 12/23/24 aluminum-magnesium hydroxide 225-200 mg/5 mL suspension 30 ml PO Q4H PRN guaifenesin 100 mg/5 mL liquid 200 mg PO Q4H PRN PRN (Reason: cough, congestion) Referrals / Follow Up: Herminio Méndez MD [Med Staff - Active Staff, Orthopedics] - In 1 Week Referral Note: Call to schedule follow-up appointment in 1 week Sourav Castro MD [Primary Care Provider, Family Practice] Disposition Disposition (needs filled in before D/C Order can be placed): [facility] Charges/Coding Visit Charges Inpatient E&M: 59649 Disch Hosp >30min
--- NOTE | 2025-01-01 15:11 | CASEMGMT ---
Discharge Planning Discharge orders and signed med list sent via [facility] to [facility] with note that nursing will schedule transport and call with time and report. Judith Salazar DC Planning Asst.
--- NOTE | 2025-01-01 15:44 | CASEMGMT ---
Discharge Planning Discharge orders, signed med list, and transport time sent via [facility] to [facility]. Physicians will transport pt by wheelchair at 7:45p. Nursing, SW, pt, and his daughter (Maya) updated. Judith Salazar DC Planning Asst.
== END 2025-01-01 19:48 | DRG 472 ==
LOC: ED 20:36 → MS3 21:18
PROVIDERS: Internal Medicine; Orthopaedic Surgery Orthopaedic Surgery of the Spine; Admitting Provider Family Medicine; Emergency Provider Emergency Medicine; PCP Family Medicine; Visit Provider Internal Medicine
PROC: 0RG10AJ Fusion of Cervical Vertebral Joint with Interbody Fusion Device, Posterior Approach, Anterior Column, Open Approach (ICD-10-PCS; principal; 2024-12-31 10:45)
DX: M47.12 Other spondylosis with myelopathy, cervical region (principal); G95.89 Other specified diseases of spinal cord; J44.9 Chronic obstructive pulmonary disease, unspecified; I10 Essential (primary) hypertension; M43.12 Spondylolisthesis, cervical region; K21.9 Gastro-esophageal reflux disease without esophagitis; E78.5 Hyperlipidemia, unspecified; M48.02 Spinal stenosis, cervical region; M62.830 Muscle spasm of back; R33.9 Retention of urine, unspecified; M62.81 Muscle weakness (generalized); Z98.1 Arthrodesis status; Z92.3 Personal history of irradiation; Z79.82 Long term (current) use of aspirin; Z85.01 Personal history of malignant neoplasm of esophagus; Z79.899 Other long term (current) drug therapy; Z87.891 Personal history of nicotine dependence
CPT/HCPCS: 36415; 72040; 72125; 72156; 76000; 80048; 85025; 94640; 94668; 94762; 97110; 97162; 97164; 97166; 97168; 97530; 97535; 99284; A9575; C1713; A4216; J2405